=== PATIENT | female | born 1960 | race Caucasian/White ===

== ENCOUNTER → 2017-09-06 | Outpatient (CLI) | payer MEDICARE ==
[~2017-09-06] MED LIST: ACTO15TA22 PO; AMLO10TA2 PO; ATEN100T PO; CITA20TA4 PO; CLAR10CA3 PO; CLON0.2T PO; CYCL10TA PO; GABA800T PO; LEVEMIR SQ; LIPI80TA PO; NOVO7030P2 SQ; NOVOLOGP2 SQ; PIOG30 PO; PRIL20CA9 PO; TRAZ50TA12 PO; [UNRECOGNIZED DRUG - OTHER] TOP; [UNRECOGNIZED DRUG - SUPPLY] SQ
[2017-09-06 16:26] LABS: BICARBONATE 30.1 MEQ/L (21.0-32.0); CALCIUM 9.4 MG/DL (8.5-10.1); CREATININE 2.42 MG/DL (0.50-1.00)
== END ==
LOC: PLAB 14:16
PROVIDERS: ATTEND Family Medicine
DX: I12.9 Hypertensive chronic kidney disease with stage 1 through stage 4 chronic kidney disease, or unspecified chronic kidney disease (principal); N18.4 Chronic kidney disease, stage 4 (severe)
CPT/HCPCS: 36415; 80048

== ENCOUNTER → 2017-09-23 | Outpatient (CLI) | payer MEDICARE ==
[2017-09-23 14:03] LABS: B-TYPE NATRIURETIC PEPTIDE 59 PG/ML (0-100); PARATHYROID HORMONE INTACT 168.7 PG/ML (12.4-76.8)
== END ==
LOC: PLAB 11:48
DX: R09.02 Hypoxemia (principal); I12.9 Hypertensive chronic kidney disease with stage 1 through stage 4 chronic kidney disease, or unspecified chronic kidney disease; N18.4 Chronic kidney disease, stage 4 (severe); E11.22 Type 2 diabetes mellitus with diabetic chronic kidney disease; E11.65 Type 2 diabetes mellitus with hyperglycemia; R06.09 Other forms of dyspnea; R60.0 Localized edema; I87.2 Venous insufficiency (chronic) (peripheral)
CPT/HCPCS: 36415; 83880; 83970

== ENCOUNTER 2017-09-26 15:03 | Observation (INO) | payer MEDICARE ==
[2017-09-26] VITALS (9 sets, daily range): BP systolic 171–230; BP diastolic 74–105; PULSE 72–83; RESP 16–20; TEMP 97.9–98.1; O2SAT 90–97
[2017-09-26 16:31] LABS: AUTOMATED NEUTROPHIL # 7.4 TH/MM3 (1.8-7.7); BASOPHIL # 0.1 TH/MM3 (0-0.2); BASOPHIL % 1.1 % (0.0-2.0); EOSINOPHIL # 0.6 TH/MM3 (0-0.4); EOSINOPHIL % 5.8 % (0.0-4.0); HEMATOCRIT 35.3 % (35.0-46.0); HEMOGLOBIN 11.4 GM/DL (11.6-15.3); LYMPHOCYTE # 1.4 TH/MM3 (1.0-4.8); MEAN CELL VOLUME 93.5 FL (80.0-100.0); MEAN CORPUSCULAR HEMOGLOBIN 30.1 PG (27.0-34.0); MEAN CORPUSCULAR HGB CONC 32.2 % (32.0-36.0); MEAN PLATELET VOLUME 8.5 FL (7.0-11.0); MONO % 11.1 % (0.0-8.0); MONOCYTE # 1.2 TH/MM3 (0-0.9); PLATELET COUNT 282 TH/MM3 (150-450); RED BLOOD COUNT 3.78 MIL/MM3 (4.00-5.30); WHITE BLOOD COUNT 10.7 TH/MM3 (4.0-11.0)
[2017-09-26 16:56] LABS: ALBUMIN 3.1 GM/DL (3.4-5.0); AST (GOT) 10 U/L (15-37); BICARBONATE 27.3 MEQ/L (21.0-32.0); BLOOD UREA NITROGEN 27 MG/DL (7-18); CALCIUM 9.1 MG/DL (8.5-10.1); CHLORIDE 107 MEQ/L (98-107); CREATININE 2.13 MG/DL (0.50-1.00); GLOMERULAR FILTRATION RATE 24 ML/MIN (>89); GLUCOSE,RANDOM 159 MG/DL (74-106); MAGNESIUM 1.9 MG/DL (1.5-2.5); SODIUM (NA) 139 MEQ/L (136-145)
[2017-09-26 16:58] LABS: ALT (GPT) 16 U/L (10-53)
[2017-09-26 16:59] LABS: ALKALINE PHOSPHATASE 59 U/L (45-117); TOTAL BILIRUBIN ADULT 0.1 MG/DL (0.2-1.0); TOTAL PROTEIN 7.1 GM/DL (6.4-8.2)
[2017-09-26 17:24] LABS: BANDS 2 % (0-6); BASOPHILS 2 % (0-2); LYMPHOCYTES 8 % (9-44); METAMYELOCYTES 1 % (0-1); MONOCYTES 11 % (0-8); MYELOCYTES 2 % (0-0); NEUTROPHIL # MANUAL DIFF 7.6 TH/MM3 (1.8-7.7); POLYS (SEG NEUTROPHILS) 66 % (16-70)
[2017-09-26] MEDS ORDERED: CITA20TA4 PO (17:40)
[2017-09-26] MEDS ORDERED: ZOCO20TA PO (17:40)
[2017-09-26] MEDS ORDERED: AMLO5TAB2 PO (17:40)
[2017-09-26] MEDS ORDERED: GABA600T PO (17:40)
[2017-09-26] MEDS ORDERED: HYDR-3516 PO (17:40)
[2017-09-26] MEDS ORDERED: ZANT150T2 PO (17:40)
[2017-09-26] MEDS ORDERED: CLON0.2T PO (17:40)
[2017-09-26] MEDS ORDERED: NOVOLOGMXP SQ (17:41)
[2017-09-26] MEDS ORDERED: CLINDAMYCIN 600 MG/NS PREMIX 50 ML IV ONE (17:45)
[2017-09-26] MEDS ORDERED: FUROSEMIDE 40 MG/4 ML VIAL IV PUSH ONE (17:45)
--- NOTE | 2017-09-26 17:58 | RADRPT ---
EXAM DATE/TIME: 09/26/2017 17:42 [facility] COMPARISON: No previous studies available for comparison. INDICATIONS : Short of breath. MEDICAL HISTORY : Hypertension. Renal insufficiency. SURGICAL HISTORY : None. ENCOUNTER: Initial ACUITY: 1 day PAIN SCORE: 0/10 LOCATION: Bilateral chest FINDINGS: The lungs are clear. The heart is minimally enlarged. The pulmonary vascularity is normal. There is n o evidence for infiltrate or failure. The portion of the bony skeleton visualized is unremarkable. CONCLUSION: Compensated cardiomegaly otherwise negative Jam Wall MD FACR on September 26, 2017 at 17:54 Board Certified Radiologist. This report was verified electronically.
--- NOTE | 2017-09-26 18:37 | PD ---
HPI Chief Complaint: Medical Clearance Time Seen by Provider: 17:09 Travel History International Travel<30 days: No Contact w/Intl Traveler<30days: No Traveled to known affect area: No History of Present Illness HPI 57-year-old female that presents to the ED for evaluation of possible admission for CHF exacerbation. Per patient she was sent here by Dr. Fitzpatrick for evaluation of this. Per patient she felt with Dr. Fitzpatrick for chronic conditions. Per patient she's been having issues with her blood sugars, hypertension and fluid in her legs. Per patient she is short of breath with exertion. No chest pain. No urinary or bowel movement issues. Per patient she has a home health nurse that been helping her with taking her medications and follows the wounds on her legs and per patient the leg wounds on the left leg appear to be worsening. She also complains of more swelling. She apparently has a history of lymphedema as well as CHF. Per patient she was called by Dr. Fitzpatrick to come here to get evaluated as they're concerned that she might have some kidney injury as well from taking multiple diuretics. She has no allergies to medications. No other medical issues at this time. No chest pain. No recent travel. Takes no blood thinners. No fevers chills or sweats. PFSH Past Medical History Arthritis: Yes Asthma: No Autoimmune Disease: No Heart Rhythm Problems: No Cardiovascular Problems: Yes High Cholesterol: Yes Chest Pain: No Congestive Heart Failure: No COPD: No Cerebrovascular Accident: No Diabetes: Yes Patient Takes Glucophage: No Diminished Hearing: No Gastrointestinal Disorders: Yes GERD: No Glaucoma: No Headaches: Yes Hepatitis: No Hiatal Hernia: No Hypertension: Yes Kidney Stones: No Musculoskeletal: Yes Myocardial Infarction: No Renal Failure: No Seizures: No Sleep Apnea: No Thyroid Disease: No Ulcer: No Tetanus Vaccination: > 5 Years Influenza Vaccination: Yes ?: Not Menopausal: Yes : 1 Para: 1 Past Surgical History Abdominal Surgery: No AICD: No Cardiac Surgery: No Section: Yes (x 1) Ear Surgery: No Endocrine Surgery: No Eye Surgery: No Genitourinary Surgery: No Gynecologic Surgery: Yes Oral Surgery: No Pacemaker: No Thoracic Surgery: No Social History Alcohol Use: No Tobacco Use: No (quit 4 years) Substance Use: No Allergies-Medications (Allergen,Severity, Reaction): Coded Allergies: No Known Allergies (Verified Allergy, Unknown, 09/26/17) Reported Meds & Prescriptions Reported Meds & Active Scripts Active Novolog Inj (Insulin Aspart) 1,000 Unit/10 Ml Vial 1-9 Units SQ ACHS Max dose at bedtime:( )units; sugars less than 70,(0)units; sugars 150-199,(1) unit; sugars 200-249,(3) units; sugars 250-299,(5) units; sugars 300-349,(7) units; sugars greater than 349,(9) units Gabapentin 800 Mg Tab 800 Mg PO TID Actos (Pioglitazone HCl) 15 Mg Tab 15 Mg PO DAILY Reported Novolog Mix 70-30 Inj (Insulin Aspart Prota 70%/Aspart 30%) 1,000 Unit/10 Ml Vial 52 Units SQ BID Hydrocodone-Acetaminophen 5-325 mg Tab 1 Tab PO Q8HR PRN Zantac (Ranitidine HCl) 150 Mg Tab 150 Mg PO BID Zocor (Simvastatin) 20 Mg Tab 20 Mg PO DAILY Gabapentin 600 Mg Tab 600 Mg PO TID Citalopram (Citalopram Hydrobromide) 20 Mg Tab 20 Mg PO DAILY Clonidine (Clonidine HCl) 0.2 Mg Tab 0.2 Mg PO BID Amlodipine (Amlodipine Besylate) 5 Mg Tab 5 Mg PO DAILY Review of Systems Except as stated in HPI: all other systems reviewed are Neg Physical Exam Narrative GENERAL: SKIN: Warm and dry. HEAD: Atraumatic. Normocephalic. EYES: Pupils equal and round. No scleral icterus. No injection or drainage. ENT: No nasal bleeding or discharge. Mucous membranes pink and moist. Tongue is midline. No uvula deviation. NECK: Trachea midline. No JVD. CARDIOVASCULAR: Regular rate and rhythm. No murmurs, S3, S4. RESPIRATORY: No accessory muscle use. Clear to auscultation. Breath sounds equal bilaterally. GASTROINTESTINAL: Abdomen soft, non-tender, nondistended. Hepatic and splenic margins not palpable. MUSCULOSKELETAL: Extremities without clubbing, cyanosis, or edema. No obvious deformities. Full range of motion of the upper and lower extremities bilaterally. 2+ pulses bilaterally. Patient does have 2+ pitting edema especially on the left leg. Patient does appear to have some wounds on her like that appear to be infected with erythema. Some calf tenderness noted as well. NEUROLOGICAL: Awake and alert. No obvious cranial nerve deficits. Motor grossly within normal limits. Five out of 5 muscle strength in the arms and legs. Normal speech. PSYCHIATRIC: Appropriate mood and affect; insight and judgment normal. Data Data Last Documented VS Vital Signs Date Time Temp Pulse Resp B/P (MAP) Pulse Ox O2 Delivery O2 Flow Rate FiO2 09/26/17 17:34 20 95 Room Air 09/26/17 17:16 97.9 76 Orders Orders Complete Blood Count With Diff (09/26/17 15:25) Comprehensive Metabolic Panel (09/26/17 15:25) B-Type Natriuretic Peptide (09/26/17 15:25) Magnesium (Mg) (09/26/17 15:25) Electrocardiogram (09/26/17 17:29) Prothrombin Time / Inr (Pt) (09/26/17 17:29) Act Partial Throm Time (Ptt) (09/26/17 17:29) Urinalysis - C+S If Indicated (09/26/17 17:29) Magnesium (Mg) (09/26/17 17:29) Chest, Single Ap (09/26/17 17:29) Iv Access Insert/Monitor (09/26/17 17:29) Ecg Monitoring (09/26/17 17:29) Oximetry (09/26/17 17:29) Us Leg Venous Doppler Bilat (09/26/17 ) Furosemide Inj (Lasix Inj) (09/26/17 17:45) Clindamycin 600 Mg/Ns Premix (Cleocin 60 (09/26/17 17:45) Urine Culture (09/26/17 18:20) Admit Order (Ed Use Only) (09/26/17 19:18) Labs Laboratory Tests Test 09/26/17 15:35 09/26/17 17:40 09/26/17 18:20 White Blood Count 10.7 TH/MM3 Red Blood Count 3.78 MIL/MM3 Hemoglobin 11.4 GM/DL Hematocrit 35.3 % Mean Corpuscular Volume 93.5 FL Mean Corpuscular Hemoglobin 30.1 PG Mean Corpuscular Hemoglobin Concent 32.2 % Red Cell Distribution Width 16.0 % Platelet Count 282 TH/MM3 Mean Platelet Volume 8.5 FL Neutrophils (%) (Auto) 69.0 % Lymphocytes (%) (Auto) 13.0 % Monocytes (%) (Auto) 11.1 % Eosinophils (%) (Auto) 5.8 % Basophils (%) (Auto) 1.1 % Neutrophils # (Auto) 7.4 TH/MM3 Lymphocytes # (Auto) 1.4 TH/MM3 Monocytes # (Auto) 1.2 TH/MM3 Eosinophils # (Auto) 0.6 TH/MM3 Basophils # (Auto) 0.1 TH/MM3 CBC Comment AUTO DIFF Differential Total Cells Counted 100 Neutrophils % (Manual) 66 % Band Neutrophils % 2 % Lymphocytes % 8 % Monocytes % 11 % Eosinophils % 8 % Basophils % 2 % Neutrophils # (Manual) 7.6 TH/MM3 Metamyelocytes 1 % Myelocytes 2 % Differential Comment FINAL DIFF MANUAL Platelet Estimate NORMAL Platelet Morphology Comment NORMAL Blood Urea Nitrogen 27 MG/DL Creatinine 2.13 MG/DL Random Glucose 159 MG/DL Total Protein 7.1 GM/DL Albumin 3.1 GM/DL Calcium Level 9.1 MG/DL Magnesium Level 1.9 MG/DL 1.9 MG/DL Alkaline Phosphatase 59 U/L Aspartate Amino Transf (AST/SGOT) 10 U/L Alanine Aminotransferase (ALT/SGPT) 16 U/L Total Bilirubin 0.1 MG/DL Sodium Level 139 MEQ/L Potassium Level 4.5 MEQ/L Chloride Level 107 MEQ/L Carbon Dioxide Level 27.3 MEQ/L Anion Gap 5 MEQ/L Estimat Glomerular Filtration Rate 24 ML/MIN B-Type Natriuretic Peptide 117 PG/ML Prothrombin Time 10.0 SEC Prothromb Time International Ratio 1.0 RATIO Activated Partial Thromboplast Time 24.8 SEC Urine Color LIGHT-YELLOW Urine Turbidity CLEAR Urine pH 6.0 Urine Specific [place] 1.016 Urine Protein 300 mg/dL Urine Glucose (UA) 70 mg/dL Urine Ketones NEG mg/dL Urine Occult Blood TRACE Urine Nitrite NEG Urine Bilirubin NEG Urine Urobilinogen LESS THAN 2.0 MG/DL Urine Leukocyte Esterase SMALL Urine RBC 6 /hpf Urine WBC 43 /hpf Urine Squamous Epithelial Cells 1 /hpf Urine Bacteria OCC /hpf Urine Mucus FEW /lpf Microscopic Urinalysis Comment CULTURE INDICATED MDM Medical Decision Making Medical Screen Exam Complete: Yes Emergency Medical Condition: Yes Medical Record Reviewed: Yes Interpretation(s) CBC & BMP Diagram 09/26/17 15:35 Total Protein 7.1, Albumin 3.1 L, Calcium Level 9.1, Magnesium Level 1.9, Alkaline Phosphatase 59, Aspartate Amino Transf (AST/SGOT) 10 L, Alanine Aminotransferase (ALT/SGPT) 16, Total Bilirubin 0.1 L Last Impressions Chest X-Ray 09/26/17 1729 Signed Impressions: Service Date/Time: Tuesday, September 26, 2017 17:42 - CONCLUSION: Compensated cardiomegaly otherwise negative Jam Wall MD FACR Lower Extremity Ultrasound 09/26/17 0000 Signed Impressions: Service Date/Time: Tuesday, September 26, 2017 18:12 - CONCLUSION: Normal examination. Rajiv Cardenas MD BNP in the 100s Differential Diagnosis Hypertension versus diabetes versus kidney injury versus CHF exacerbation versus pitting edema Narrative Course 57-year-old female that presents to the ED for evaluation of multiple complaints. Patient was properly examined and was found to have signs and symptoms of unclear etiology but appeared to be for the most part worsening from chronic. I discussed the case with Dr. Fitzpatrick who is aware of the patient and she in force me to the patient has been follow-up with her for the past couple of months and has been having issues keeping her fluid out. She's been on multiple diuretics and is causing some issues with her kidneys which is what she was concerned the most. She is also somewhat of a noncompliant and because of her leg wounds as well as her other comorbidities wanted her to get admitted for further evaluation. Per Dr. Fitzpatrick she does not admit in [facility] and wants her to be admitted to medicine. Labs and imaging were ordered by me. Patient was started on diuretics. Case discussed with my attending Dr Amezcua who agrees with plan. Spoke with Dr Holloway who agrees to obs admission. Diagnosis Primary Impression: CHF (congestive heart failure) Qualified Codes: I50.9 - Heart failure, unspecified Additional Impression: Leg edema Admitting Information Admitting Physician Requests: Observation Robert Campa Sep 26, 2017 18:37
[2017-09-26 18:55] LABS: BACTERIA, URINE OCC /hpf; BILIRUBIN, URINE NEG (NEG); BLOOD, URINE TRACE (NEG); GLUCOSE,URINE 70 mg/dL (NEG); KETONE, URINE NEG (NEG); MUCUS URINE FEW /lpf (OCC); NITRITE,URINE NEG (NEG); SQUAMOUS EPITHELIAL CELL URINE 1 /hpf (0-5); URINE COLOR LIGHT-YELLOW (YELLW/STRAW); URINE LEUKOCYTE ESTERASE SMALL (NEG)
--- NOTE | 2017-09-26 18:56 | RADRPT ---
EXAM DATE/TIME: 09/26/2017 18:12 [facility] COMPARISON: No previous studies available for comparison. INDICATIONS : Bilateral leg swelling. MEDICAL HISTORY : Hypercholesterolemia. Hypertension. Neck pain. Hyperlipidemia. Arthritis. Diabetes. Anemia. SURGICAL HISTORY : section. ENCOUNTER: Initial ACUITY: 4 - 6 days PAIN SCORE: 3/10 LOCATION: Bilateral legs. TECHNIQUE: Venous ultrasound of the left and right leg was performed from the inguinal ligament to the proximal calf. Real-time, color Doppler and spectral tracing, compression and augmentation techniques were us ed. FINDINGS: RIGHT LEG: There is normal compressibility of the deep venous system from the inguinal region to the proximal ca lf. No echogenic clot is seen in the lumen of the common femoral, femoral, popliteal, and posterior tibial veins. There is a normal response of the venous system to proximal and distal augmentation an d respiration. LEFT LEG: There is normal compressibility of the deep venous system from the inguinal region to the proximal ca lf. No echogenic clot is seen in the lumen of the common femoral, femoral, popliteal, and posterior tibial veins. There is a normal response of the venous system to proximal and distal augmentation an d respiration. CONCLUSION: Normal examination. Rajiv Cardenas MD on September 26, 2017 at 18:53 Board Certified Radiologist. This report was verified electronically.
[2017-09-26] MEDS ORDERED: DEXTROSE 50% IN WATER 50 ML VIAL(D50) IV PUSH PRN (19:45)
[2017-09-26] MEDS ORDERED: ONDANSETRON HCL 4 MG/2 ML VIAL IVP PRN (19:45)
[2017-09-26] MEDS ORDERED: GLUCAGON 1 MG/ML VIAL OTHER PRN (19:45)
[2017-09-26] MEDS ORDERED: SODIUM CHLORIDE 0.9% FLUSH 10 ML FLUSH IV FLUSH PRN (19:45)
[2017-09-26] MEDS ORDERED: ACETAMINOPHEN 325 MG TAB PO PRN (19:45)
[2017-09-26] MEDS ORDERED: NALOXONE HCL 0.4 MG/ML AMP IV PUSH PRN (19:45)
--- NOTE | 2017-09-26 20:55 | HHI.HP ---
[facility] Service [place] [facility] Primary Care Physician Stacy Fitzpatrick MD Admission Diagnosis CHF exacerbation Diagnoses: Travel History International Travel<30 Days: No Contact w/Intl Traveler <30 Da: No Traveled to Known Affected Are: No History of Present Illness 57-year-old female with a past medical history significant for hypertension, COPD, insulin-dependent diabetes mellitus, hyperlipidemia and chronic kidney disease presents to the emergency department at the suggestion of her physician for evaluation of multiple chronic conditions. The patient reports that her the past several days she has had elevated blood pressure. She also complains of increasing shortness of breath on exertion. She has "leg wounds" that she would also like evaluated with chronic lymphedema. The patient follows with Dr. Fitzpatrick who requests she be admitted for further diuresis with monitoring of her worsening renal function. Vital signs on admission: Temperature 98.0, pulse 72, respirations 16, BP 2:30/105, pulse ox 97% on room air. Review of Systems Denies fever or chills Denies blurry vision, otorrhea, rhinorrhea Denies sore throat and cough No chest pain, palpitations Positive shortness of breath, No wheezing No abdominal pain Denies constipation/diarrhea/nausea/vomiting Denies muscle pain Denies focal weakness No rashes Past Family Social History Past Medical History Hypertension COPD Insulin-dependent diabetes mellitus Hyperlipidemia Chronic kidney disease Past Surgical History Reported Medications Reported Meds & Active Scripts Active Novolog Inj (Insulin Aspart) 1,000 Unit/10 Ml Vial 1-9 Units SQ ACHS Max dose at bedtime:( )units; sugars less than 70,(0)units; sugars 150-199,(1) unit; sugars 200-249,(3) units; sugars 250-299,(5) units; sugars 300-349,(7) units; sugars greater than 349,(9) units Gabapentin 800 Mg Tab 800 Mg PO TID Actos (Pioglitazone HCl) 15 Mg Tab 15 Mg PO DAILY Reported Novolog Mix 70-30 Inj (Insulin Aspart Prota 70%/Aspart 30%) 1,000 Unit/10 Ml Vial 52 Units SQ BID Hydrocodone-Acetaminophen 5-325 mg Tab 1 Tab PO Q8HR PRN Zantac (Ranitidine HCl) 150 Mg Tab 150 Mg PO BID Zocor (Simvastatin) 20 Mg Tab 20 Mg PO DAILY Gabapentin 600 Mg Tab 600 Mg PO TID Citalopram (Citalopram Hydrobromide) 20 Mg Tab 20 Mg PO DAILY Clonidine (Clonidine HCl) 0.2 Mg Tab 0.2 Mg PO BID Amlodipine (Amlodipine Besylate) 5 Mg Tab 5 Mg PO DAILY Allergies: Coded Allergies: No Known Allergies (Verified Allergy, Unknown, 09/26/17) Family History Father with diabetes mellitus Social History Quit tobacco 4 years ago. Denies alcohol, illicit drugs. Physical Exam Vital Signs Vital Signs Date Time Temp Pulse Resp B/P (MAP) Pulse Ox O2 Delivery O2 Flow Rate FiO2 09/26/17 19:40 96 Nasal Cannula 2.00 09/26/17 19:39 72 20 188/84 (118) 90 Room Air 09/26/17 17:34 20 95 Room Air 09/26/17 17:16 97.9 76 20 210/87 (128) 94 Room Air 09/26/17 17:10 76 20 09/26/17 15:05 98.0 72 16 230/105 (146) 97 Physical Exam GENERAL: Obese, female sitting up in bed SKIN: Multiple excoriations on the posterior aspect of bilateral lower extremities with surrounding erythema HEAD: Atraumatic. Normocephalic. No temporal or scalp tenderness. EYES: Pupils equal round and reactive. Extraocular motions intact. No scleral icterus. No injection or drainage. ENT: Nose without bleeding, purulent drainage or septal hematoma. Throat without erythema, tonsillar hypertrophy or exudate. Uvula midline. Airway patent. NECK: Trachea midline. No JVD or lymphadenopathy. Supple, nontender, no meningeal signs. CARDIOVASCULAR: Regular rate and rhythm without murmurs, gallops, or rubs. RESPIRATORY: Clear to auscultation. Breath sounds equal bilaterally. No wheezes , rales, or rhonchi. GASTROINTESTINAL: Abdomen soft, non-tender, nondistended. No hepato-splenomegaly , or palpable masses. No guarding. MUSCULOSKELETAL: Bilateral lower extremity edema, left greater than right. No calf tenderness. NEUROLOGICAL: Awake and alert. Cranial nerves II through XII intact. Motor and sensory grossly within normal limits. Normal speech. Laboratory Laboratory Tests Test 09/26/17 15:35 09/26/17 17:40 09/26/17 18:20 White Blood Count 10.7 Red Blood Count 3.78 Hemoglobin 11.4 Hematocrit 35.3 Mean Corpuscular Volume 93.5 Mean Corpuscular Hemoglobin 30.1 Mean Corpuscular Hemoglobin Concent 32.2 Red Cell Distribution Width 16.0 Platelet Count 282 Mean Platelet Volume 8.5 Neutrophils (%) (Auto) 69.0 Lymphocytes (%) (Auto) 13.0 Monocytes (%) (Auto) 11.1 Eosinophils (%) (Auto) 5.8 Basophils (%) (Auto) 1.1 Neutrophils # (Auto) 7.4 Lymphocytes # (Auto) 1.4 Monocytes # (Auto) 1.2 Eosinophils # (Auto) 0.6 Basophils # (Auto) 0.1 CBC Comment AUTO DIFF Differential Total Cells Counted 100 Neutrophils % (Manual) 66 Band Neutrophils % 2 Lymphocytes % 8 Monocytes % 11 Eosinophils % 8 Basophils % 2 Neutrophils # (Manual) 7.6 Metamyelocytes 1 Myelocytes 2 Differential Comment FINAL DIFF MANUAL Platelet Estimate NORMAL Platelet Morphology Comment NORMAL Blood Urea Nitrogen 27 Creatinine 2.13 Random Glucose 159 Total Protein 7.1 Albumin 3.1 Calcium Level 9.1 Magnesium Level 1.9 1.9 Alkaline Phosphatase 59 Aspartate Amino Transf (AST/SGOT) 10 Alanine Aminotransferase (ALT/SGPT) 16 Total Bilirubin 0.1 Sodium Level 139 Potassium Level 4.5 Chloride Level 107 Carbon Dioxide Level 27.3 Anion Gap 5 Estimat Glomerular Filtration Rate 24 B-Type Natriuretic Peptide 117 Prothrombin Time 10.0 Prothromb Time International Ratio 1.0 Activated Partial Thromboplast Time 24.8 Urine Color LIGHT-YELLOW Urine Turbidity CLEAR Urine pH 6.0 Urine Specific [place] 1.016 Urine Protein 300 Urine Glucose (UA) 70 Urine Ketones NEG Urine Occult Blood TRACE Urine Nitrite NEG Urine Bilirubin NEG Urine Urobilinogen LESS THAN 2.0 Urine Leukocyte Esterase SMALL Urine RBC 6 Urine WBC 43 Urine Squamous Epithelial Cells 1 Urine Bacteria OCC Urine Mucus FEW Microscopic Urinalysis Comment CULTURE INDICATED Date/Time Source Procedure Growth Status 09/26/17 18:20 Urine Clean Catch Urine Culture Pending Received Result Diagram: 09/26/17 1535 09/26/17 1535 Caprini VTE Risk Assessment Caprini VTE Risk Assessment: No/Low Risk (score <= 1) Caprini Risk Assessment Model Point Value = 1 Point Value = 2 Point Value = 3 Point Value = 5 Age 41-60 Minor surgery BMI > 25 kg/m2 Swollen legs Varicose veins or History of unexplained or recurrent spontaneous Oral contraceptives or hormone replacement Sepsis (< 1 month) Serious lung disease, including pneumonia (< 1 month) Abnormal pulmonary function Acute myocardial infarction Congestive heart failure (< 1 month) History of inflammatory bowel disease Medical patient at bed rest Age 61-74 Arthroscopic surgery Major open surgery (> 45 min) Laparoscopic surgery (> 45 min) Malignancy Confined to bed (> 72 hours) Immobilizing plaster cast Central venous access Age >= 75 History of VTE Family history of VTE Factor V Leiden Prothrombin [id number] Lupus anticoagulant Anticardiolipin antibodies Elevated serum homocysteine Heparin-induced thrombocytopenia Other congenital or acquired thrombophilia Stroke (< 1 month) Elective arthroplasty Hip, pelvis, or leg fracture Acute spinal cord injury (< 1 month) Prophylaxis Regimen Total Risk Factor Score Risk Level Prophylaxis Regimen 0-1 Low Early ambulation 2 Moderate Order ONE of the following: *Sequential Compression Device (SCD) *Heparin 5000 units SQ BID 3-4 Higher Order ONE of the following medications: *Heparin 5000 units SQ TID *Enoxaparin/Lovenox 40 mg SQ daily (WT < 150 kg, CrCl > 30 mL/min) *Enoxaparin/Lovenox 30 mg SQ daily (WT < 150 kg, CrCl > 10-29 mL/min) *Enoxaparin/Lovenox 30 mg SQ BID (WT < 150 kg, CrCl > 30 mL/min) AND/OR *Sequential Compression Device (SCD) 5 or more Highest Order ONE of the following medications: *Heparin 5000 units SQ TID (Preferred with Epidurals) *Enoxaparin/Lovenox 40 mg SQ daily (WT < 150 kg, CrCl > 30 mL/min) *Enoxaparin/Lovenox 30 mg SQ daily (WT < 150 kg, CrCl > 10-29 mL/min) *Enoxaparin/Lovenox 30 mg SQ BID (WT < 150 kg, CrCl > 30 mL/min) AND *Sequential Compression Device (SCD) Assessment and Plan Assessment and Plan Assessment/plan: 1. Lower extremity edema IV Lasix Monitor renal function Strict I's and O's 2. Shortness of breath/COPD DuoNeb's May be secondary to volume overload 3. Chronic kidney disease Creatinine 2.13, was 2.42 on 09/06/17 Monitor renal function 4. Hypertension/hyperlipidemia Patient's medication compliance is questionable Continue home medications Adjust when necessary 5. Lower extremity wounds Counseled patient to abstain from scratching Clindamycin FEN Heart healthy diet Electrolytes: Monitor and replete when necessary Heparin Nica Holloway MD Sep 26, 2017 20:55
[2017-09-26] MEDS: HEPARIN SODIUM - SQ 10,000 UNITS/ML VIAL SQ SCH (20:57)
[2017-09-26] MEDS: cloNIDine HCL 0.2 MG TAB PO SCH (20:57)
[2017-09-26] MEDS: SODIUM CHLORIDE 0.9% FLUSH 10 ML FLUSH IV FLUSH SCH (20:57)
[2017-09-26] MEDS: FAMOTIDINE 20 MG TAB PO SCH (20:57)
[2017-09-26] MEDS: INSULIN ASPAR PROT 70/30 1,000 UNITS/10 ML VIAL SQ SCH (20:58)
[2017-09-26] MEDS: INSULIN ASPART SUPPLEMENTAL SCALE SQ SCH (20:58)
[2017-09-26] MEDS ORDERED: NON-FORMULARY DRUG (Ranitidine (Zantac) 150 MG) PO SCH (21:00)
[2017-09-26] MEDS ORDERED: RESP: ALBUTEROL 2.5 MG/IPRATROPIUM 0.5 MG NEB (PRN) NEB (21:00)
[2017-09-26] MEDS ORDERED: cloNIDine HCL 0.1 MG TAB PO ONE (21:30)
[2017-09-27] VITALS (11 sets, daily range): BP systolic 166–210; BP diastolic 70–88; PULSE 64–78; RESP 18–20; TEMP 97.9–98.6; O2SAT 92–96
[2017-09-27] MEDS: CLINDAMYCIN 600 MG/NS PREMIX 50 ML IV SCH ×4 (00:09→18:01)
[2017-09-27] MEDS ORDERED: cloNIDine HCL 0.1 MG TAB PO ONE (01:15)
[2017-09-27] MEDS: HEPARIN SODIUM - SQ 10,000 UNITS/ML VIAL SQ SCH ×3 (05:56→20:35)
[2017-09-27 07:26] LABS: AUTOMATED NEUTROPHIL # 6.5 TH/MM3 (1.8-7.7); BASOPHIL # 0.1 TH/MM3 (0-0.2); BASOPHIL % 1.2 % (0.0-2.0); EOSINOPHIL # 0.5 TH/MM3 (0-0.4); EOSINOPHIL % 5.4 % (0.0-4.0); HEMATOCRIT 33.4 % (35.0-46.0); LYMPH % 12.5 % (9.0-44.0); LYMPHOCYTE # 1.2 TH/MM3 (1.0-4.8); MEAN CELL VOLUME 94.3 FL (80.0-100.0); MEAN CORPUSCULAR HEMOGLOBIN 31.1 PG (27.0-34.0); MEAN CORPUSCULAR HGB CONC 32.9 % (32.0-36.0); MEAN PLATELET VOLUME 8.7 FL (7.0-11.0); MONO % 11.1 % (0.0-8.0); NEUT % 69.8 % (16.0-70.0); PLATELET COUNT 275 TH/MM3 (150-450); RED BLOOD COUNT 3.55 MIL/MM3 (4.00-5.30); RED CELL DISTRIBUTION WIDTH 15.9 % (11.6-17.2); WHITE BLOOD COUNT 9.4 TH/MM3 (4.0-11.0)
[2017-09-27 07:41] LABS: BICARBONATE 29.9 MEQ/L (21.0-32.0); CALCIUM 8.7 MG/DL (8.5-10.1)
[2017-09-27] MEDS: INSULIN ASPART SUPPLEMENTAL SCALE SQ SCH ×4 (08:00→22:29)
[2017-09-27 08:12] LABS: BANDS 4 % (0-6); LYMPHOCYTES 8 % (9-44); METAMYELOCYTES 2 % (0-1); MONOCYTES 1 % (0-8); MYELOCYTES 2 % (0-0); POLYS (SEG NEUTROPHILS) 77 % (16-70)
[2017-09-27 08:27] LABS: CREATININE 2.13 MG/DL (0.50-1.00)
[2017-09-27] MEDS ORDERED: amLODIPine BESYLATE 5 MG TAB PO SCH (09:00)
[2017-09-27] MEDS ORDERED: NON-FORMULARY DRUG (Simvastatin (Zocor) 20 MG) PO SCH (09:00)
[2017-09-27] MEDS ORDERED: CARV25TA PO (10:17)
[2017-09-27] MEDS: SODIUM CHLORIDE 0.9% FLUSH 10 ML FLUSH IV FLUSH SCH ×2 (10:33→20:36)
[2017-09-27] MEDS: FUROSEMIDE 20 MG/2 ML VIAL IV PUSH SCH ×2 (10:33→18:01)
[2017-09-27] MEDS: PRAVASTATIN SOD 40 MG TAB PO SCH (10:34)
[2017-09-27] MEDS: INSULIN ASPAR PROT 70/30 1,000 UNITS/10 ML VIAL SQ SCH ×2 (10:34→22:38)
[2017-09-27] MEDS: CITALOPRAM HYDROBROMIDE 20 MG TAB PO SCH (10:35)
[2017-09-27] MEDS: cloNIDine HCL 0.2 MG TAB PO SCH ×2 (10:35→22:26)
[2017-09-27] MEDS: FAMOTIDINE 20 MG TAB PO SCH ×2 (10:35→20:34)
[2017-09-27] MEDS: GABAPENTIN 300 MG CAP PO SCH ×3 (10:35→17:59)
[2017-09-27] MEDS: ACETAMINOPHEN/HYDROcodone 325 MG/5 MG TAB PO PRN ×2 (11:18→20:34)
[2017-09-27] MEDS: hydrALAZINE HCL 25 MG TAB PO SCH ×2 (11:19→20:33)
--- NOTE | 2017-09-27 13:02 | HHI.PR ---
Subjective Remarks F/u HARRINGTON. Improving SOB on NC and cellulitis of the left lower extremity. Discussed with RN Objective Vitals Vital Signs Date Time Temp Pulse Resp B/P (MAP) Pulse Ox O2 Delivery O2 Flow Rate FiO2 09/27/17 11:21 98.3 75 18 210/86 (127) 95 09/27/17 07:52 97.9 77 18 199/88 (125) 96 09/27/17 05:54 176/82 (113) 09/27/17 04:05 64 09/27/17 00:00 74 09/26/17 23:38 98.1 76 20 200/81 (120) 95 209/82 (124) 09/26/17 23:17 97 Nasal Cannula 2.00 09/26/17 21:50 09/26/17 21:43 72 18 171/74 (106) 97 Nasal Cannula 2.00 09/26/17 20:56 83 18 195/101 (132) 96 Nasal Cannula 2.00 09/26/17 19:40 96 Nasal Cannula 2.00 09/26/17 19:39 72 20 188/84 (118) 90 Room Air 09/26/17 17:34 20 95 Room Air 09/26/17 17:16 97.9 76 20 210/87 (128) 94 Room Air 09/26/17 17:10 76 20 09/26/17 15:05 98.0 72 16 230/105 (146) 97 I/O 09/26/17 09/26/17 09/26/17 09/27/17 09/27/17 09/27/17 07:00 15:00 23:00 07:00 15:00 23:00 Intake Total 170 ml 240 ml Output Total 700 ml 1000 ml Balance -530 ml 240 ml -1000 ml Intake Oral 120 ml 240 ml IV Total 50 ml Output Urine Total 700 ml 1000 ml # Voids 4 1 # Bowel Movements 0 Result Diagram: 09/27/17 0540 09/27/17 0540 Imaging Last Impressions Chest X-Ray 09/26/17 1729 Signed Impressions: Service Date/Time: Tuesday, September 26, 2017 17:42 - CONCLUSION: Compensated cardiomegaly otherwise negative Jam Wall MD FACR Lower Extremity Ultrasound 09/26/17 0000 Signed Impressions: Service Date/Time: Tuesday, September 26, 2017 18:12 - CONCLUSION: Normal examination. Rajiv Cardenas MD Objective Remarks GENERAL: Obese, female sitting up in bed SKIN: Multiple excoriations on the posterior aspect of bilateral lower extremities with surrounding erythema which is improving CARDIOVASCULAR: Regular rate and rhythm without murmurs, gallops, or rubs. RESPIRATORY: Clear to auscultation. Breath sounds equal bilaterally. No wheezes , rales, or rhonchi. GASTROINTESTINAL: Abdomen soft, non-tender, nondistended. No guarding. MUSCULOSKELETAL: Bilateral lower extremity edema, left greater than right. No calf tenderness. NEUROLOGICAL: Awake and alert. Cranial nerves II through XII intact. Motor and sensory grossly within normal limits. Normal speech. Procedures none A/P Problem List: (1) CHF (congestive heart failure) ICD Code: I50.9 - Heart failure, unspecified Status: Acute (2) Leg edema ICD Code: R60.0 - Localized edema Status: Acute Assessment and Plan 1. Lower extremity edema/fluid overload possible new onset heart failure. Improving Continue IV Lasix follow-up echocardiogram Monitor renal function Strict I's and O's 2. Shortness of breath/COPD on nasal cannula. States her PCP has arranged home oxygen DuoNeb's May be secondary to volume overload 3. Chronic kidney disease stage IV Creatinine 2.13, was 2.42 on 09/06/17 Monitor renal function. Consult nephrology avoid nephrotoxins 4. Hypertension/hyperlipidemia Patient's medication compliance is questionable Continue home medications. We'll add hydralazine for better BP control Adjust when necessary 5. Lower extremity wounds with cellulitis. Improving Counseled patient to abstain from scratching Clindamycin FEN Heart healthy diet Electrolytes: Monitor and replete when necessary Heparin Physical therapy evaluation Discharge Planning Possible discharge in 1-2 days Problem Qualifiers (1) CHF (congestive heart failure): Qualified Codes: I50.9 - Heart failure, unspecified Oseas Arteaga MD Sep 27, 2017 13:02
--- NOTE | 2017-09-27 14:49 | PD.CONS ---
HPI Service Nephrology Consult Requested By Lei JACOBS Reason for Consult Worsening RF Primary Care Physician Stacy Fitzpatrick MD History of Present Illness Patient is a 57-year-old female with a past medical history significant for hypertension, COPD, insulin-dependent diabetes mellitus, hyperlipidemia and chronic kidney disease. Who presents to the emergency department at the suggestion of her physician for evaluated elevated blood pressure with SBP in the 200's and lower extremity unilateral swelling. She also complains of increasing shortness of breath on exertion and has "leg wounds" . The patient follows with Dr. Fitzpatrick who requests she be admitted for further diuresis with monitoring of her worsening renal function. History obtained from patient. Reports that around 6 months ago she was total that her GFR was 29 and that probably over the last 5 years her physician has been telling her that her kidney function has been declining. She has never been followed by sport internship but has a appt scheduled with Dr. Mendes on the . She has had diabetes for over 5 years and has been insulin dependent for the last 2 1/2 years. She has not been well controlled with blood sugars in the 200's. She has had HTN since her early 20's. As of lately her blood pressure medication has been changed around and her blood pressure has not been as well controlled. (Zulma Iverson) Review of Systems Respiratory: COMPLAINS OF: Shortness of breath Cardiovascular: COMPLAINS OF: Lower Extremity Edema Gastrointestinal: DENIES: Nausea, Vomiting Integumentary: COMPLAINS OF: Rash Hematologic/lymphatic: COMPLAINS OF: Lymphadenopathy Psychiatric: COMPLAINS OF: Depression (Zulma Iverson) Past Family Social History Allergies: Coded Allergies: No Known Allergies (Verified Allergy, Unknown, 09/26/17) Past Medical History Hypertension COPD Insulin-dependent diabetes mellitus Hyperlipidemia Chronic kidney disease Past Surgical History Active Ordered Medications Current Medications Medications (Trade) Dose Ordered Sig/Marisol Route Start Time Stop Time Status Last Admin (NS Flush) 2 ml UNSCH PRN IV FLUSH 09/26/17 19:45 (NS Flush) 2 ml BID IV FLUSH 09/26/17 21:00 09/27/17 10:33 (Tylenol) 650 mg Q4H PRN PO 09/26/17 19:45 (Zofran Inj) 4 mg Q6H PRN IVP 09/26/17 19:45 (Heparin Inj) 5,000 units Q8H SQ 09/26/17 20:00 09/27/17 14:10 (Narcan Inj) 0.4 mg UNSCH PRN IV PUSH 09/26/17 19:45 (D50w (Vial) Inj) 50 ml UNSCH PRN IV PUSH 09/26/17 19:45 (Glucagon Inj) 1 mg UNSCH PRN OTHER 09/26/17 19:45 (NovoLOG SUPPLEMENTAL SCALE) 1 ACHS SLIDING SCALE SQ 09/26/17 21:00 09/27/17 14:11 (Norvasc) 5 mg DAILY PO 09/27/17 09:00 09/27/17 10:34 (CeleXA) 20 mg DAILY PO 09/27/17 09:00 09/27/17 10:35 (Catapres) 0.2 mg BID PO 09/26/17 21:00 09/27/17 10:35 (Neurontin) 600 mg TID PO 09/27/17 09:00 09/27/17 14:09 (NovoLOG MIX 70/ 30 INJ) 52 units BID SQ 09/26/17 21:00 09/27/17 10:34 (Pepcid) 10 mg BID PO 09/26/17 21:00 09/27/17 10:35 (Pravachol) 40 mg DAILY PO 09/27/17 09:00 09/27/17 10:34 (Lasix Inj) 20 mg BID@09,18 IV PUSH 09/27/17 09:00 09/27/17 10:33 (Duoneb Neb) 1 ampule Q4HR NEB PRN NEB 09/26/17 21:00 Clindamycin/ Sodium Chloride 50 ml @ 100 mls/hr Q6HR IV 09/27/17 00:00 09/27/17 12:47 (Apresoline) 25 mg Q12HR PO 09/27/17 10:30 09/27/17 11:19 (Questa 5-325 Mg) 1 tab Q8HR PRN PO 09/27/17 10:30 09/27/17 11:18 Family History Mother and siblings alive with HTN Father with hx of diabetes Social History quit smoking 4 years ago No ETOH use (Zulma Iverson) Physical Exam Vital Signs Vital Signs Date Time Temp Pulse Resp B/P (MAP) Pulse Ox O2 Delivery O2 Flow Rate FiO2 09/27/17 11:21 98.3 75 18 210/86 (127) 95 09/27/17 07:52 97.9 77 18 199/88 (125) 96 09/27/17 05:54 176/82 (113) 09/27/17 04:05 64 09/27/17 00:00 74 09/26/17 23:38 98.1 76 20 200/81 (120) 95 209/82 (124) 09/26/17 23:17 97 Nasal Cannula 2.00 09/26/17 21:50 09/26/17 21:43 72 18 171/74 (106) 97 Nasal Cannula 2.00 09/26/17 20:56 83 18 195/101 (132) 96 Nasal Cannula 2.00 09/26/17 19:40 96 Nasal Cannula 2.00 09/26/17 19:39 72 20 188/84 (118) 90 Room Air 09/26/17 17:34 20 95 Room Air 09/26/17 17:16 97.9 76 20 210/87 (128) 94 Room Air 09/26/17 17:10 76 20 09/26/17 15:05 98.0 72 16 230/105 (146) 97 Physical Exam GENERAL: Alert and oriented. Obese SKIN: Multiple excoriations on the posterior aspect of bilateral lower extremities with surrounding erythema HEAD: Atraumatic. Normocephalic. No temporal or scalp tenderness. EYES: Pupils equal round and reactive. Extraocular motions intact. No scleral icterus. No injection or drainage. ENT: Nose without bleeding, purulent drainage or septal hematoma. NECK: Trachea midline. No JVD or lymphadenopathy. Supple, nontender, no meningeal signs. CARDIOVASCULAR: Regular rate and rhythm without murmurs, gallops, or rubs. RESPIRATORY: Breath sounds diminished equal bilaterally. No wheezes, rales, or rhonchi. GASTROINTESTINAL: Abdomen large, soft, non-tender. No hepato-splenomegaly, or palpable masses. No guarding. MUSCULOSKELETAL: Bilateral lower extremity edema, left greater than right. No calf tenderness. NEUROLOGICAL: Awake and alert. Normal speech. Laboratory Laboratory Tests Test 09/26/17 15:35 09/26/17 17:40 1/22/18 18:20 09/27/17 05:40 White Blood Count 10.7 9.4 Red Blood Count 3.78 3.55 Hemoglobin 11.4 11.0 Hematocrit 35.3 33.4 Mean Corpuscular Volume 93.5 94.3 Mean Corpuscular Hemoglobin 30.1 31.1 Mean Corpuscular Hemoglobin Concent 32.2 32.9 Red Cell Distribution Width 16.0 15.9 Platelet Count 282 275 Mean Platelet Volume 8.5 8.7 Neutrophils (%) (Auto) 69.0 69.8 Lymphocytes (%) (Auto) 13.0 12.5 Monocytes (%) (Auto) 11.1 11.1 Eosinophils (%) (Auto) 5.8 5.4 Basophils (%) (Auto) 1.1 1.2 Neutrophils # (Auto) 7.4 6.5 Lymphocytes # (Auto) 1.4 1.2 Monocytes # (Auto) 1.2 1.0 Eosinophils # (Auto) 0.6 0.5 Basophils # (Auto) 0.1 0.1 CBC Comment AUTO DIFF AUTO DIFF Differential Total Cells Counted 100 100 Neutrophils % (Manual) 66 77 Band Neutrophils % 2 4 Lymphocytes % 8 8 Monocytes % 11 1 Eosinophils % 8 6 Basophils % 2 Neutrophils # (Manual) 7.6 8.0 Metamyelocytes 1 2 Myelocytes 2 2 Differential Comment FINAL DIFF MANUAL FINAL DIFF MANUAL Platelet Estimate NORMAL NORMAL Platelet Morphology Comment NORMAL NORMAL Blood Urea Nitrogen 27 28 Creatinine 2.13 2.13 Random Glucose 159 100 Total Protein 7.1 Albumin 3.1 Calcium Level 9.1 8.7 Magnesium Level 1.9 1.9 Alkaline Phosphatase 59 Aspartate Amino Transf (AST/SGOT) 10 Alanine Aminotransferase (ALT/SGPT) 16 Total Bilirubin 0.1 Sodium Level 139 142 Potassium Level 4.5 4.2 Chloride Level 107 106 Carbon Dioxide Level 27.3 29.9 Anion Gap 5 6 Estimat Glomerular Filtration Rate 24 24 B-Type Natriuretic Peptide 117 Prothrombin Time 10.0 Prothromb Time International Ratio 1.0 Activated Partial Thromboplast Time 24.8 Urine Color LIGHT-YELLOW Urine Turbidity CLEAR Urine pH 6.0 Urine Specific [place] 1.016 Urine Protein 300 Urine Glucose (UA) 70 Urine Ketones NEG Urine Occult Blood TRACE Urine Nitrite NEG Urine Bilirubin NEG Urine Urobilinogen LESS THAN 2.0 Urine Leukocyte Esterase SMALL Urine RBC 6 Urine WBC 43 Urine Squamous Epithelial Cells 1 Urine Bacteria OCC Urine Mucus FEW Microscopic Urinalysis Comment CULTURE INDICATED Date/Time Source Procedure Growth Status 09/26/17 18:20 Urine Clean Catch Urine Culture - Preliminary RESULTS PENDING Resulted (Zulma Iverson) Result Diagram: 09/27/17 0540 09/27/17 0540 Imaging Last Impressions Chest X-Ray 09/26/17 1729 Signed Impressions: Service Date/Time: Tuesday, September 26, 2017 17:42 - CONCLUSION: Compensated cardiomegaly otherwise negative Jam Wall MD FACR Lower Extremity Ultrasound 09/26/17 0000 Signed Impressions: Service Date/Time: Tuesday, September 26, 2017 18:12 - CONCLUSION: Normal examination. Rajiv Cardenas MD (Zulma Iverson) Assessment and Plan Problem List: (1) KYAW (acute kidney injury) ICD Codes: N17.9 - Acute kidney failure, unspecified Plan: Possible KYAW on CKD. Per records there is a creatinine on 09/06/17 at 2.42 and GFR 20 so this could be her baseline numbers. CKD with GFR over 6 months ago at 29 most likely from uncontrolled HTN and diabetes. Patient reports that over the last 5 years she has been told she has been having declining kidney function 3 + protein in urine noted. Eosinophil noted in blood, edema, and rash noted. Will order urine eosinophils Good urine output Potassium WNL Lower extremity edema left greater than right. Negative for DVT per US. Continue lasix and will monitor renal funtion Renal US ordered Renal panel, mg, phos in AM (2) Essential hypertension ICD Codes: I10 - Essential (primary) hypertension Status: Acute Plan: Blood pressure elevated at 210/80 at last documented check Continue hydralazine, clonidine, and amlodipine. Amlodpine increased. Will monitor and make adjustments as needed (3) Diabetes mellitus with renal manifestation ICD Codes: E11.29 - Type 2 diabetes mellitus with other diabetic kidney complication Status: Acute Plan: Diabetic neuropathy: on gabapentin BS AC and HS Insulin dependent Maintain BS between 140mg/dl to 180 mg/dl (4) Obesity ICD Codes: E66.9 - Obesity, unspecified Status: Acute (5) Hyperlipidemia ICD Codes: E78.5 - Hyperlipidemia, unspecified Status: Acute Plan: continue statin (6) Leg edema ICD Codes: R60.0 - Localized edema Status: Acute (7) Wound of lower extremity ICD Codes: S81.809A - Unspecified open wound, unspecified lower leg, initial encounter Plan: Continue clindamycin (Zulma Iverson) Problem List: (1) KYAW (acute kidney injury) ICD Codes: N17.9 - Acute kidney failure, unspecified Plan: Possible KYAW on CKD. Per records there is a creatinine on 09/06/17 at 2.42 and GFR 20 so this could be her baseline numbers. CKD with GFR over 6 months ago at 29 most likely from uncontrolled HTN and diabetes. Patient reports that over the last 5 years she has been told she has been having declining kidney function 3 + protein in urine noted. Eosinophil noted in blood, edema, and rash noted. Will order urine eosinophils Good urine output Potassium WNL Lower extremity edema left greater than right. Negative for DVT per US. Continue lasix and will monitor renal function Renal US ordered Renal panel, mg, phos in AM. Has proteinuria, possibly has Diabetic renal disease. Check ANCA,a nd complement. If Creatinine remain stable, can be discharge with out patient follow up. (2) Essential hypertension ICD Codes: I10 - Essential (primary) hypertension Status: Acute Plan: Blood pressure elevated at 210/80 at last documented check Continue hydralazine, clonidine, and amlodipine. Amlodipine increased. Will monitor and make adjustments as needed. (3) Diabetes mellitus with renal manifestation ICD Codes: E11.29 - Type 2 diabetes mellitus with other diabetic kidney complication Status: Acute Plan: Diabetic neuropathy: on gabapentin BS AC and HS Insulin dependent Maintain BS between 140mg/dl to 180 mg/dl (4) Obesity ICD Codes: E66.9 - Obesity, unspecified Status: Acute (5) Hyperlipidemia ICD Codes: E78.5 - Hyperlipidemia, unspecified Status: Acute Plan: continue statin (6) Leg edema ICD Codes: R60.0 - Localized edema Status: Acute (7) Wound of lower extremity ICD Codes: S81.809A - Unspecified open wound, unspecified lower leg, initial encounter Plan: Continue clindamycin (Gerri Mendes MD) Zulma Iverson Sep 27, 2017 14:48 Gerri Mendes MD Sep 27, 2017 21:50
--- NOTE | 2017-09-27 17:39 | EKG ---
Date Performed: 09/26/2017 Time Performed: 17:41:45 PTAGE: 57 years EKG: Sinus rhythm NORMAL ECG PREVIOUS TRACING : 08/12/2004 17.04 DOCTOR: Kiki Celis Interpretating Date/Time 09/27/2017 17:32:41
--- NOTE | 2017-09-27 18:10 | ECHRPT ---
Indication: cardiomyopathy CONCLUSIONS Very technically difficult study. In limited views, the left ventricular systolic function is normal with an estimated ejection fracti on in the range of 60-65%. [id number] mitral valve regurgitation. There is mild tricuspid valve regurgitation. BP: / HR: Rhythm: MEASUREMENTS (Male / Female) Normal Values Technical Quality:Very technically difficult study 2D ECHO LV Diastolic Diameter PLAX 4.7 cm 4.2 - 5.9 / 3.9 - 5.3 cm LV Systolic Diameter PLAX 3.4 cm IVS Diastolic Thickness 1.7 cm 0.6 - 1.0 / 0.6 - 0.9 cm LVPW Diastolic Thickness 1.3 cm 0.6 - 1.0 / 0.6 - 0.9 cm LV Relative Wall Thickness 0.6 RV Internal Dim ED PLAX 3.2 cm M-MODE Aortic Root Diameter MM 3.2 cm LA Systolic Diameter MM 4.1 cm LA Ao Ratio MM 1.3 AV Cusp Separation MM 2.1 cm DOPPLER Mitral E Point Velocity 54.3 cm/s Mitral A Point Velocity 74.0 cm/s Mitral E to A Ratio 0.7 LV E' Lateral Velocity 6.7 cm/s Mitral E to LV E' Lateral Ratio 8.1 LV E' Septal Velocity 6.2 cm/s Mitral E to LV E' Septal Ratio 8.7 FINDINGS LEFT VENTRICLE Normal left ventricular size. In limited views, the left ventricular systolic function is normal with an estimated ejection fracti on in the range of 60-65%. There was limited left ventricular wall motion assessment due to poor endocardial visualization. RIGHT VENTRICLE The right ventricle was not well visualized. LEFT ATRIUM The left atrial size is mildly dilated. RIGHT ATRIUM The right atrium is not well visualized. ATRIAL SEPTUM The interatrial septum not well visualized. MITRAL VALVE The mitral valve is not well visualized. [id number] mitral valve regurgitation. AORTIC VALVE The aortic valve is not well visualized. No aortic valve regurgitation. No aortic valve stenosis. TRICUSPID VALVE The tricuspid valve is not well visualized. There is mild tricuspid valve regurgitation. PULMONARY VALVE The pulmonary valve is not well visualized. Fransisco Garcia DO (Electronically Signed) Final Date:27 September 2017 18:09
--- NOTE | 2017-09-27 22:31 | RADRPT ---
EXAM DATE/TIME: 09/27/2017 21:50 [facility] COMPARISON: No previous studies available for comparison. EXTERNAL COMPARISON : [facility], US Bilateral kidney, August 31, 2017 INDICATIONS : Abnormal labs. MEDICAL HISTORY : Hypercholesterolemia. Peripheral neuropathy. Hypertension. COPD. Dyspnea. Arthritis. Diabetes. Ch ronic kidney disease. SURGICAL HISTORY : section. ENCOUNTER: Initial ACUITY: 1 day PAIN SCORE: 0/10 LOCATION: Bilateral flank MEASUREMENTS: RIGHT KIDNEY: 10.2 x 4.0 x 5.4 cm LEFT KIDNEY: 10.0 x 3.8 x 5.6 cm FINDINGS: Both kidneys measure about 10 cm in length. No hydronephrosis. 4 mm calculus mid pole left kidney. No focal bladder abnormality. CONCLUSION: 1. Nonobstructing left renal calculi. No hydronephrosis. Rajiv Cardenas MD on September 27, 2017 at 22:26 Board Certified Radiologist. This report was verified electronically.
[2017-09-28] MEDS: CLINDAMYCIN 600 MG/NS PREMIX 50 ML IV SCH ×2 (00:08→04:57)
[2017-09-28 00:10] VITALS: PULSE 77
[2017-09-28 00:11] VITALS: BP 153/65; PULSE 74; RESP 19; TEMP 98.7; O2SAT 93
[2017-09-28 03:59] VITALS: BP 181/74; PULSE 66; PULSE 71; RESP 19; TEMP 98.3; O2SAT 93
[2017-09-28] MEDS: HEPARIN SODIUM - SQ 10,000 UNITS/ML VIAL SQ SCH (04:57)
[2017-09-28 07:18] VITALS: BP 198/83; PULSE 72; RESP 18; TEMP 98; O2SAT 96
[2017-09-28] MEDS: INSULIN ASPART SUPPLEMENTAL SCALE SQ SCH (08:00)
--- NOTE | 2017-09-28 08:42 | HHI.FF ---
Face to Face Verification Diagnosis: (1) KYAW (acute kidney injury) Physical Therapy Order: Evaluate and Treat, Improve ambulation, Strength and gait training Home Health Nursing Order: Medical education Signs/symptoms of disease process (edema control) I have seen patient Corine Nguyen on 09/28/17. My clinical findings support the need for the requested home health care services because: Deconditioned w/ increased weakness I certify that my clinical findings support that this patient is homebound because: Unsafe to leave home unassisted Oseas Arteaga MD Sep 28, 2017 08:42
[2017-09-28] MEDS: GABAPENTIN 300 MG CAP PO SCH (08:53)
[2017-09-28] MEDS: PRAVASTATIN SOD 40 MG TAB PO SCH (08:54)
[2017-09-28] MEDS: cloNIDine HCL 0.2 MG TAB PO SCH (08:54)
[2017-09-28] MEDS: FAMOTIDINE 20 MG TAB PO SCH (08:55)
[2017-09-28] MEDS: ACETAMINOPHEN/HYDROcodone 325 MG/5 MG TAB PO PRN (08:55)
[2017-09-28] MEDS: CITALOPRAM HYDROBROMIDE 20 MG TAB PO SCH (08:56)
[2017-09-28] MEDS: INSULIN ASPAR PROT 70/30 1,000 UNITS/10 ML VIAL SQ SCH (08:57)
[2017-09-28] MEDS: FUROSEMIDE 20 MG/2 ML VIAL IV PUSH SCH (08:59)
[2017-09-28] MEDS ORDERED: hydrALAZINE HCL 50 MG TAB PO SCH (09:00)
[2017-09-28] MEDS: SODIUM CHLORIDE 0.9% FLUSH 10 ML FLUSH IV FLUSH SCH (09:00)
--- NOTE | 2017-09-28 09:29 | HHI.NPPN ---
Subjective General Problems: Diabetes, Hypertension Renal Failure: Chronic History of Present Illness Patient is a 57-year-old female with a past medical history significant for hypertension, COPD, insulin-dependent diabetes mellitus, hyperlipidemia and chronic kidney disease. Who presents to the emergency department at the suggestion of her physician for evaluated elevated blood pressure with SBP in the 200's and lower extremity unilateral swelling. She also complains of increasing shortness of breath on exertion and has "leg wounds" . The patient follows with Dr. Fitzpatrick who requests she be admitted for further diuresis with monitoring of her worsening renal function. History obtained from patient. Reports that around 6 months ago she was total that her GFR was 29 and that probably over the last 5 years her physician has been telling her that her kidney function has been declining. She has never been followed by manager play but has a appt scheduled with Dr. Mendes on the . She has had diabetes for over 5 years and has been insulin dependent for the last 2 1/2 years. She has not been well controlled with blood sugars in the 200's. She has had HTN since her early 20's. As of lately her blood pressure medication has been changed around and her blood pressure has not been as well controlled. Additional Remarks Resting comfortably. No SOB noted. Blood pressure elevated this AM (Zulma Iverson) Review of Systems Respiratory Respiratory Remarks No SOB (Zulma Iverson) Cardiovascular Cardiac Remarks No CP{ (Zulma Iverson) Gastrointestinal GI Remarks No Abdominal pain (Zulma Iverson) Genitourinary Remarks No dysuria (Zulma Iverson) Skin Skin: Skin Rash (Zulma Iverson) Objective Data Data Vital Signs Date Time Temp Pulse Resp B/P (MAP) Pulse Ox O2 Delivery O2 Flow Rate FiO2 09/28/17 07:18 98.0 72 18 198/83 (121) 96 09/28/17 03:59 66 09/28/17 03:59 98.3 71 19 181/74 (109) 93 09/28/17 00:11 98.7 74 19 153/65 (94) 93 09/28/17 00:10 77 09/27/17 23:46 Nasal Cannula 2.00 09/27/17 22:23 98.3 74 20 166/73 (104) 92 09/27/17 21:45 20 09/27/17 20:23 98.2 78 20 167/70 (102) 93 09/27/17 20:10 74 09/27/17 15:35 98.6 74 18 199/84 (122) 93 09/27/17 15:00 68 09/27/17 11:21 98.3 75 18 210/86 (127) 95 (Zulma Iverson) -: 09/27/17 0540 09/27/17 0540 Imaging Last Impressions Renal Ultrasound 09/27/17 0000 Signed Impressions: Service Date/Time: Wednesday, September 27, 2017 21:50 - CONCLUSION: 1. Nonobstructing left renal calculi. No hydronephrosis. Rajiv Cardenas MD Chest X-Ray 09/26/17 1729 Signed Impressions: Service Date/Time: Tuesday, September 26, 2017 17:42 - CONCLUSION: Compensated cardiomegaly otherwise negative Jam Wall MD FACR Lower Extremity Ultrasound 09/26/17 0000 Signed Impressions: Service Date/Time: Tuesday, September 26, 2017 18:12 - CONCLUSION: Normal examination. Rajiv Cardenas MD (Zulma Iverson) Physical Exam General Appearance: No Acute Distress, Comfortable, Obese (Zulma Iverson) Eyes Eye Exam: Pupils Equal (Zulma Iverson) Pulmonary Resp Exam: Breath Sounds Equal, No Distress (Zulma Iverson) Cardiology CV Exam: Regular, Normal Sinus Rhythm (Zulma Iverson) Gastrointestinal/Abdomen GI Exam: Soft, Non-Tender, Bowel Sounds Present (Zulma Iverson) Integumentary Skin Exam: Warm, Dry Skin Remarks Rash noted on bilateral lower extremity (Zulma Iverson) Extremeties Extremities Exam: Trace Edema (Zulma Iverson) Neurologic Neuro Exam: Alert, Awake (Zulma Iverson) Assessment/Plan Discussed Condition With: Patient Assessment Summary: CKD Stage IV Problem List: (1) KYAW (acute kidney injury) ICD Codes: N17.9 - Acute kidney failure, unspecified Plan: Possible KYAW on CKD. Per records there is a creatinine on 09/06/17 at 2.42 and GFR 20 so this could be her baseline numbers. CKD with GFR over 6 months ago at 29 most likely from uncontrolled HTN and diabetes. Patient reports that over the last 5 years she has been told she has been having declining kidney function. 3 + protein in urine noted possibly diabetic renal disease Eosinophil noted in blood, edema, and rash noted. Will order urine eosinophils Good urine output Potassium WNL Lower extremity edema left greater than right. Negative for DVT per US. Continue lasix and will monitor renal function Renal US ordered and noted Renal panel, mg, phos ANCA and complement pending If Creatinine remain stable, can be discharge follow up appt scheduled. (2) Essential hypertension ICD Codes: I10 - Essential (primary) hypertension Status: Acute Plan: Blood pressure elevated Continue hydralazine, clonidine, and amlodipine. Amlodipine increased yesterday and hydralazine this am Will monitor and make adjustments as needed. (3) Diabetes mellitus with renal manifestation ICD Codes: E11.29 - Type 2 diabetes mellitus with other diabetic kidney complication Status: Acute Plan: Diabetic neuropathy: on gabapentin BS AC and HS Insulin dependent Maintain BS between 140mg/dl to 180 mg/dl (4) Obesity ICD Codes: E66.9 - Obesity, unspecified Status: Acute (5) Hyperlipidemia ICD Codes: E78.5 - Hyperlipidemia, unspecified Status: Acute Plan: continue statin (6) Leg edema ICD Codes: R60.0 - Localized edema Status: Acute (7) Wound of lower extremity ICD Codes: S81.809A - Unspecified open wound, unspecified lower leg, initial encounter Plan: Keflex (Zulma Iverson) Problem List: (1) KYAW (acute kidney injury) ICD Codes: N17.9 - Acute kidney failure, unspecified Plan: Possible KYAW on CKD. Per records there is a creatinine on 09/06/17 at 2.42 and GFR 20 so this could be her baseline numbers. CKD with GFR over 6 months ago at 29 most likely from uncontrolled HTN and diabetes. Patient reports that over the last 5 years she has been told she has been having declining kidney function. 3 + protein in urine noted possibly diabetic renal disease Eosinophil noted in blood, edema, and rash noted. Will order urine eosinophils Good urine output Potassium WNL Lower extremity edema left greater than right. Negative for DVT per US. Continue lasix and will monitor renal function Renal US ordered and noted Renal panel, mg, phos ANCA and complement pending If Creatinine remain stable, can be discharge follow up appt scheduled. Creatinine is stable, BP is elevated. For D/C, will follow as out patient. (2) Essential hypertension ICD Codes: I10 - Essential (primary) hypertension Status: Acute Plan: Blood pressure elevated Continue hydralazine, clonidine, and amlodipine. Amlodipine increased yesterday and hydralazine this am Will monitor and make adjustments as needed. (3) Diabetes mellitus with renal manifestation ICD Codes: E11.29 - Type 2 diabetes mellitus with other diabetic kidney complication Status: Acute Plan: Diabetic neuropathy: on gabapentin BS AC and HS Insulin dependent Maintain BS between 140mg/dl to 180 mg/dl (4) Obesity ICD Codes: E66.9 - Obesity, unspecified Status: Acute (5) Hyperlipidemia ICD Codes: E78.5 - Hyperlipidemia, unspecified Status: Acute Plan: continue statin (6) Leg edema ICD Codes: R60.0 - Localized edema Status: Acute (7) Wound of lower extremity ICD Codes: S81.809A - Unspecified open wound, unspecified lower leg, initial encounter Plan: Keflex (Gerri Mendes MD) Zulma Iverson Sep 28, 2017 09:29 Gerri Mendes MD Sep 28, 2017 11:39
[2017-09-28 10:29] LABS: CALCIUM 9.7 MG/DL (8.5-10.1); CREATININE 2.12 MG/DL (0.50-1.00); PHOSPHORUS 3.9 MG/DL (2.5-4.9)
[2017-09-28 10:32] LABS: COMPLEMENT C3 159 MG/DL (90-180); COMPLEMENT C4 39 MG/DL (10-40)
[2017-09-28] MEDS ORDERED: CEPH500C PO (10:48)
[2017-09-28] MEDS ORDERED: HYDR-3800 PO (10:48)
[2017-09-28] MEDS ORDERED: AMLO10 PO (10:48)
[2017-09-28] MEDS ORDERED: CARV25TA PO (10:48)
[2017-09-28] MEDS ORDERED: FURO20TA PO (10:51)
[2017-09-28] MEDS ORDERED: CEPHALEXIN MONOHYDRATE 500 MG CAP PO SCH (12:00)
[2017-09-28 12:02] VITALS: BP 141/80; PULSE 68; RESP 18; TEMP 98.6; O2SAT 93
--- NOTE | 2017-09-28 13:57 | HHI.PR ---
Subjective Remarks Follow-up hypertension and shortness of breath. BP improving after increasing Norvasc and started on Lasix and hydralazine. Denies any complaints no headache , dizziness and chest pain and shortness of breath. Currently on room air discussed with nursing staff Objective Vitals Vital Signs Date Time Temp Pulse Resp B/P (MAP) Pulse Ox O2 Delivery O2 Flow Rate FiO2 09/28/17 12:02 98.6 68 18 141/80 (100) 93 09/28/17 07:18 98.0 72 18 198/83 (121) 96 09/28/17 03:59 66 09/28/17 03:59 98.3 71 19 181/74 (109) 93 09/28/17 00:11 98.7 74 19 153/65 (94) 93 09/28/17 00:10 77 09/27/17 23:46 Nasal Cannula 2.00 09/27/17 22:23 98.3 74 20 166/73 (104) 92 09/27/17 21:45 20 09/27/17 20:23 98.2 78 20 167/70 (102) 93 09/27/17 20:10 74 09/27/17 15:35 98.6 74 18 199/84 (122) 93 09/27/17 15:00 68 I/O 09/27/17 09/27/17 09/27/17 09/28/17 09/28/17 09/28/17 07:00 15:00 23:00 07:00 15:00 23:00 Intake Total 490 ml 240 ml 250 ml Output Total 1500 ml 200 ml 1000 ml Balance 490 ml -1260 ml 50 ml -1000 ml Intake Oral 490 ml 240 ml 250 ml Output Urine Total 1500 ml 200 ml 1000 ml # Voids 2 Result Diagram: 09/27/17 0540 09/28/17 0910 Imaging Last Impressions Renal Ultrasound 09/27/17 0000 Signed Impressions: Service Date/Time: Wednesday, September 27, 2017 21:50 - CONCLUSION: 1. Nonobstructing left renal calculi. No hydronephrosis. Rajiv Cardenas MD Chest X-Ray 09/26/17 1729 Signed Impressions: Service Date/Time: Tuesday, September 26, 2017 17:42 - CONCLUSION: Compensated cardiomegaly otherwise negative Jam Wall MD FACR Lower Extremity Ultrasound 09/26/17 0000 Signed Impressions: Service Date/Time: Tuesday, September 26, 2017 18:12 - CONCLUSION: Normal examination. Rajiv Cardenas MD Objective Remarks GENERAL: Obese, female sitting up in bed SKIN: Multiple excoriations on the posterior aspect of bilateral lower extremities with surrounding erythema which is improving CARDIOVASCULAR: Regular rate and rhythm without murmurs, gallops, or rubs. RESPIRATORY: Clear to auscultation. Breath sounds equal bilaterally. No wheezes , rales, or rhonchi. GASTROINTESTINAL: Abdomen soft, non-tender, nondistended. No guarding. MUSCULOSKELETAL: Bilateral lower extremity edema, left greater than right. No calf tenderness. NEUROLOGICAL: Awake and alert. Cranial nerves II through XII intact. Motor and sensory grossly within normal limits. Normal speech. Procedures none A/P Problem List: (1) CHF (congestive heart failure) ICD Code: I50.9 - Heart failure, unspecified Status: Acute (2) Leg edema ICD Code: R60.0 - Localized edema Status: Acute Assessment and Plan 1. Lower extremity edema/fluid overload possible new onset heart failure. Improving on Lasix. Echocardiogram shows preserved LV function. 2. Shortness of breath/COPD on nasal cannula. States her PCP has arranged home oxygen. Stable 3. Chronic kidney disease stage IV. Stable. Monitor renal function. Consult nephrology avoid nephrotoxins 4. Hypertension/hyperlipidemia. BP readings much improved after med adjustments as previously mentioned. 5. Lower extremity wounds with cellulitis. Improving switch to by mouth Keflex Counseled patient to abstain from scratching FEN Heart healthy diet Electrolytes: Monitor and replete when necessary Heparin Physical therapy evaluation Discharge Planning Discharge patient to home with physical therapy and visiting nurse Condition on discharge: Improved Regular Diet as tolerated Ad Keira activity no driving Rx written: Norvasc, Keflex, Lasix and hydralazine Follow-up with primary care physician and nephrology. Repeat BMP in 1 week Problem Qualifiers (1) CHF (congestive heart failure): Qualified Codes: I50.9 - Heart failure, unspecified Oseas Arteaga MD Sep 28, 2017 13:57
== END 2017-09-28 16:47 | disposition home or self-care (01) ==
LOC: NEPE 15:03 → NEDA 19:19 → NEPGCP 22:15
PROVIDERS: ADMIT Internal Medicine; ATTEND Internal Medicine
DX: I50.9 Heart failure, unspecified (principal); N18.4 Chronic kidney disease, stage 4 (severe); I13.0 Hypertensive heart and chronic kidney disease with heart failure and stage 1 through stage 4 chronic kidney disease, or unspecified chronic kidney disease; E11.22 Type 2 diabetes mellitus with diabetic chronic kidney disease; E78.00 Pure hypercholesterolemia, unspecified; J44.9 Chronic obstructive pulmonary disease, unspecified; L03.116 Cellulitis of left lower limb; E11.40 Type 2 diabetes mellitus with diabetic neuropathy, unspecified; N17.9 Acute kidney failure, unspecified; N20.0 Calculus of kidney; I89.0 Lymphedema, not elsewhere classified; M19.90 Unspecified osteoarthritis, unspecified site; E66.9 Obesity, unspecified; Z79.4 Long term (current) use of insulin; Z79.899 Other long term (current) drug therapy; Z87.891 Personal history of nicotine dependence; Z91.19 Patient's noncompliance with other medical treatment and regimen
CPT/HCPCS: 71045; 76775; 80048; 80053; 80069; 81001; 82948; 83735; 83880; 85007; 85027; 85610; 85730; 86021; 86160; 87086; 93005; 93306; 93970; 96365; 96372; 96375; 96376; 97162; 99285; G0378; G8987; G8988; J1644; J1815; J1940

== ENCOUNTER → 2017-10-17 | Outpatient (CLI) | payer MEDICARE ==
[~2017-10-17] MED LIST changes: +AMLO10 PO; -AMLO10TA2 PO; -ATEN100T PO; +CARV25TA PO; +CEPH500C PO; -CLAR10CA3 PO; -CYCL10TA PO; +FURO20TA PO; +GABA600T PO; -GABA800T PO; +HYDR-3516 PO; +HYDR-3800 PO; -LEVEMIR SQ; -LIPI80TA PO; -NOVO7030P2 SQ; +NOVOLOGMXP SQ; -PIOG30 PO; -PRIL20CA9 PO; -TRAZ50TA12 PO; +ZANT150T2 PO; +ZOCO20TA PO; -[UNRECOGNIZED DRUG - OTHER] TOP; -[UNRECOGNIZED DRUG - SUPPLY] SQ
[2017-10-17 13:51] LABS: AUTOMATED NEUTROPHIL # 7.3 TH/MM3 (1.8-7.7); BASOPHIL # 0.1 TH/MM3 (0-0.2); BASOPHIL % 1.3 % (0.0-2.0); EOSINOPHIL # 0.6 TH/MM3 (0-0.4); EOSINOPHIL % 5.8 % (0.0-4.0); HEMATOCRIT 38.3 % (35.0-46.0); HEMOGLOBIN 12.7 GM/DL (11.6-15.3); LYMPH % 15.6 % (9.0-44.0); LYMPHOCYTE # 1.7 TH/MM3 (1.0-4.8); MEAN CELL VOLUME 92.5 FL (80.0-100.0); MEAN CORPUSCULAR HEMOGLOBIN 30.6 PG (27.0-34.0); MEAN CORPUSCULAR HGB CONC 33.1 % (32.0-36.0); MONOCYTE # 1.2 TH/MM3 (0-0.9); NEUT % 66.3 % (16.0-70.0); PLATELET COUNT 257 TH/MM3 (150-450); RED BLOOD COUNT 4.14 MIL/MM3 (4.00-5.30); RED CELL DISTRIBUTION WIDTH 16.1 % (11.6-17.2)
[2017-10-17 13:58] LABS: ALBUMIN 3.3 GM/DL (3.4-5.0); AST (GOT) 12 U/L (15-37); BICARBONATE 23.6 MEQ/L (21.0-32.0); BLOOD UREA NITROGEN 23 MG/DL (7-18); CALCIUM 9.1 MG/DL (8.5-10.1); CHLORIDE 108 MEQ/L (98-107); CREATININE 2.37 MG/DL (0.50-1.00); GLOMERULAR FILTRATION RATE 21 ML/MIN (>89); GLUCOSE,FASTING 204 MG/DL (74-99); SODIUM (NA) 139 MEQ/L (136-145)
[2017-10-17 14:00] LABS: ALT (GPT) 18 U/L (10-53); CHOLESTEROL 211 MG/DL (120-200)
[2017-10-17 14:06] LABS: ALKALINE PHOSPHATASE 55 U/L (45-117); CHOLESTEROL/ HDL RATIO 4.12 RATIO; HDL CHOLESTEROL 51.1 MG/DL (40.0-60.0); LDL CHOLESTEROL 87 MG/DL (0-99); TOTAL BILIRUBIN ADULT 0.2 MG/DL (0.2-1.0); TOTAL PROTEIN 6.8 GM/DL (6.4-8.2); TRIGLYCERIDES 366 MG/DL (42-150)
[2017-10-17 14:42] LABS: BANDS 1 % (0-6); BASOPHILS 1 % (0-2); LYMPHOCYTES 21 % (9-44); METAMYELOCYTES 1 % (0-1); MONOCYTES 11 % (0-8); MYELOCYTES 3 % (0-0); NEUTROPHIL # MANUAL DIFF 7.2 TH/MM3 (1.8-7.7); POLYS (SEG NEUTROPHILS) 60 % (16-70)
[2017-10-17 16:46] LABS: HEMOGLOBIN A1C 9.9 % (4.3-6.0)
== END ==
LOC: PLAB 09:20
PROVIDERS: ATTEND Family Medicine
DX: D39.0 Neoplasm of uncertain behavior of uterus (principal); E78.2 Mixed hyperlipidemia; F41.9 Anxiety disorder, unspecified; M25.561 Pain in right knee; I12.9 Hypertensive chronic kidney disease with stage 1 through stage 4 chronic kidney disease, or unspecified chronic kidney disease; N18.9 Chronic kidney disease, unspecified; E11.22 Type 2 diabetes mellitus with diabetic chronic kidney disease; E11.65 Type 2 diabetes mellitus with hyperglycemia; F32.9 Major depressive disorder, single episode, unspecified; K21.9 Gastro-esophageal reflux disease without esophagitis; E66.9 Obesity, unspecified; Z87.891 Personal history of nicotine dependence
CPT/HCPCS: 36415; 80053; 80061; 83036; 85007; 85027

== ENCOUNTER → 2017-10-19 | Outpatient (CLI) | payer MEDICARE | LOC: PLAB 09:01 | PROVIDERS: ATTEND Family Medicine | DX: K62.6 Ulcer of anus and rectum (principal) | CPT/HCPCS: 36415; 86695; 86696 ==

== ENCOUNTER → 2017-10-19 | Outpatient (CLI) | payer MEDICARE | LOC: PHRSP 07:29 | PROVIDERS: ATTEND Internal Medicine | DX: J44.9 Chronic obstructive pulmonary disease, unspecified (principal) | CPT/HCPCS: 36600; 82805; 94060; 94726; 94729 ==

== ENCOUNTER → 2017-11-29 | Outpatient (CLI) | payer MEDICARE ==
[2017-11-29 18:04] LABS: AUTOMATED NEUTROPHIL # 11.4 TH/MM3 (1.8-7.7); BASOPHIL # 0.2 TH/MM3 (0-0.2); BASOPHIL % 1.3 % (0.0-2.0); EOSINOPHIL # 0.8 TH/MM3 (0-0.4); EOSINOPHIL % 4.9 % (0.0-4.0); HEMATOCRIT 34.8 % (35.0-46.0); HEMOGLOBIN 11.3 GM/DL (11.6-15.3); LYMPH % 14.8 % (9.0-44.0); LYMPHOCYTE # 2.5 TH/MM3 (1.0-4.8); MEAN CORPUSCULAR HEMOGLOBIN 30.5 PG (27.0-34.0); MEAN CORPUSCULAR HGB CONC 32.5 % (32.0-36.0); MEAN PLATELET VOLUME 8.2 FL (7.0-11.0); MONO % 10.8 % (0.0-8.0); MONOCYTE # 1.8 TH/MM3 (0-0.9); NEUT % 68.2 % (16.0-70.0); PLATELET COUNT 254 TH/MM3 (150-450); RED CELL DISTRIBUTION WIDTH 16.5 % (11.6-17.2); WHITE BLOOD COUNT 16.8 TH/MM3 (4.0-11.0)
[2017-11-29 18:06] LABS: ALBUMIN 3.3 GM/DL (3.4-5.0); BICARBONATE 24.7 MEQ/L (21.0-32.0); CALCIUM 8.9 MG/DL (8.5-10.1); CREATININE 2.74 MG/DL (0.50-1.00); PHOSPHORUS 4.3 MG/DL (2.5-4.9)
[2017-11-29 18:57] LABS: BANDS 3 % (0-6); BASOPHILS 2 % (0-2); LYMPHOCYTES 12 % (9-44); METAMYELOCYTES 4 % (0-1); MONOCYTES 13 % (0-8); MYELOCYTES 2 % (0-0); NEUTROPHIL # MANUAL DIFF 11.3 TH/MM3 (1.8-7.7); POLYS (SEG NEUTROPHILS) 58 % (16-70)
[2017-11-29 18:58] LABS: OVALOCYTES 1+ (NORMAL)
== END ==
LOC: PLAB 13:44
PROVIDERS: ATTEND Internal Medicine Nephrology
DX: N18.3 Chronic kidney disease, stage 3 (moderate) (principal)
CPT/HCPCS: 36415; 80069; 85007; 85027

== ENCOUNTER → 2017-12-07 | Outpatient (CLI) | payer MEDICARE | LOC: PLAB 14:23 | PROVIDERS: ATTEND Nurse Practitioner Family | DX: I50.9 Heart failure, unspecified (principal) | CPT/HCPCS: 36415; 83880 ==

== ENCOUNTER → 2017-12-28 | Outpatient (CLI) | payer MEDICARE ==
[2017-12-28 19:37] LABS: BICARBONATE 25.1 MEQ/L (21.0-32.0); CALCIUM 8.8 MG/DL (8.5-10.1); CREATININE 3.17 MG/DL (0.50-1.00)
== END ==
LOC: PLAB 15:26
PROVIDERS: ATTEND Internal Medicine Nephrology
DX: N18.3 Chronic kidney disease, stage 3 (moderate) (principal)
CPT/HCPCS: 36415; 80048

== ENCOUNTER → 2018-01-06 | Outpatient (CLI) | payer MEDICARE ==
[2018-01-06 13:30] LABS: AUTOMATED NEUTROPHIL # 12.4 TH/MM3 (1.8-7.7); BASOPHIL # 0.2 TH/MM3 (0-0.2); BASOPHIL % 1.3 % (0.0-2.0); EOSINOPHIL # 1.1 TH/MM3 (0-0.4); EOSINOPHIL % 6.1 % (0.0-4.0); HEMATOCRIT 29.5 % (35.0-46.0); HEMOGLOBIN 9.7 GM/DL (11.6-15.3); LYMPH % 11.6 % (9.0-44.0); MEAN CELL VOLUME 93.4 FL (80.0-100.0); MEAN CORPUSCULAR HEMOGLOBIN 30.6 PG (27.0-34.0); MEAN CORPUSCULAR HGB CONC 32.8 % (32.0-36.0); MEAN PLATELET VOLUME 7.7 FL (7.0-11.0); MONO % 9.3 % (0.0-8.0); MONOCYTE # 1.6 TH/MM3 (0-0.9); NEUT % 71.7 % (16.0-70.0); PLATELET COUNT 271 TH/MM3 (150-450); RED BLOOD COUNT 3.16 MIL/MM3 (4.00-5.30); RED CELL DISTRIBUTION WIDTH 17.4 % (11.6-17.2); WHITE BLOOD COUNT 17.3 TH/MM3 (4.0-11.0)
[2018-01-06 14:00] LABS: BANDS 9 % (0-6); BASOPHILS 1 % (0-2); LYMPHOCYTES 10 % (9-44); METAMYELOCYTES 3 % (0-1); MONOCYTES 4 % (0-8); MYELOCYTES 4 % (0-0); NEUTROPHIL # MANUAL DIFF 14.2 TH/MM3 (1.8-7.7); POLYS (SEG NEUTROPHILS) 66 % (16-70)
[2018-01-06 14:01] LABS: OVALOCYTES 1+ (NORMAL)
[2018-01-06 14:07] LABS: BICARBONATE 23.9 MEQ/L (21.0-32.0); CALCIUM 8.6 MG/DL (8.5-10.1); CREATININE 3.24 MG/DL (0.50-1.00)
== END ==
LOC: CLAB 13:01
PROVIDERS: ATTEND Nurse Practitioner Family
DX: D72.829 Elevated white blood cell count, unspecified (principal); N18.3 Chronic kidney disease, stage 3 (moderate)
CPT/HCPCS: 36415; 80048; 85007; 85027

== ENCOUNTER 2018-11-01 11:28 | Inpatient (IN) ==
[2018-11-01] MEDS ORDERED: Morphine Sulfate Inj 2 MG/ML Vial IV.PUSH ONE (12:20)
--- NOTE | 2018-11-01 12:39 | ED ---
HPI General Chief complaint: Shortness of Breath/Dyspnea Stated complaint: SOB Time Seen by Provider: 11/01/18 12:01 Source: patient, family, RN notes reviewed and old records reviewed Mode of arrival: EMS History of Present Illness HPI narrative: 58yF presenting with shortness of breath. The patient has a history of CHF and ESRD not yet on HD; she says that over the past 3-4 days, she 's had increasing dyspnea on minimal exertion, orthopnea, and non-productive cough. She reports that she's had decreased urination despite taking 20 mg lasix daily. Denies fever, chest pain, palpitations, nausea or vomiting. Secondary School Teacher Librarian is Dr. Mendes, vascular surgeon is Dr. Canales; she had an AVF placed in September in anticipation of needing exterminator HD. Family history non-contributory. Related Data Home Medications Medication Instructions Recorded Confirmed amlodipine 10 mg PO DAILY 09/27/18 11/01/18 atorvastatin 40 mg PO QPM 09/27/18 11/01/18 carvedilol 25 mg PO BID 09/27/18 11/01/18 citalopram 20 mg PO DAILY 09/27/18 11/01/18 clonidine HCl 0.2 mg PO BID 09/27/18 11/01/18 diphenhydramine HCl 25 mg PO HS 09/27/18 11/01/18 furosemide 20 mg PO BID 09/27/18 11/01/18 hydralazine 100 mg PO TID 09/27/18 11/01/18 insulin asp prt-insulin aspart 54 unit SUBCUT QAM 09/27/18 11/01/18 [Novolog Mix 70-30 U-100 Insuln] insulin asp prt-insulin aspart 58 unit SUBCUT QPM 09/27/18 11/01/18 [Novolog Mix 70-30 U-100 Insuln] insulin regular human [Novolin R 1 sliding scale dose SUBCUT UD 09/27/18 Regular U-100 Insuln] oxymetazoline [Afrin 2 spray INTRANASAL Q12H 09/27/18 11/01/18 (oxymetazoline)] umeclidinium-vilanterol 1 inh INHALATION Q24H 09/27/18 11/01/18 ranitidine HCl [Zantac] 150 mg PO DAILY 09/28/18 11/01/18 gabapentin 200 mg PO DAILY 11/01/18 11/01/18 prednisone 1 mg PO DAILY 11/01/18 11/01/18 Allergies Allergy/AdvReac Type Severity Reaction Status Date / Time No Known Allergies Allergy Verified 11/01/18 12:05 Review of Systems ROS: all other systems reviewed are negative Constitutional Denies fever(s) Eyes Denies blurry vision ENT Denies nasal congestion Cardiovascular Denies chest pain Respiratory Reports cough and Reports dyspnea on exertion Gastrointestinal Denies nausea Genitourinary Comments: (+) decreased urination Musculoskeletal Denies back pain Neurologic Denies confusion Psychiatric Denies confusion [facility] Medical History Medical History AV fistula (Acute) Anxiety (Acute) Arthritis (Acute) Bilateral knee pain (Acute) COPD (chronic obstructive pulmonary disease) (Acute) Chronic shoulder pain (Acute) Congestive heart failure (CHF) (Acute) Edema extremities (Acute) End stage kidney disease (Acute) Hyperlipidemia (Acute) Hypertension (Acute) Neuropathy (Acute) Shortness of breath (Acute) Wears dentures (Acute) Wears glasses (Acute) Surgical History Surgical History Hx of section (Acute) Social History Social History Substance History: No History of Abuse Second Hand Smoke Exposure: No Smoking Status: Former smoker How Often Do You Have a Drink Containing Alcohol: Monthly or less Recent Travel in [facility] within the Last 8 Weeks: No Recent Out of Country Travel within the Last 8 Weeks: No Immunization History Tetanus Immunization: Unsure Exam Const General: no acute distress [facility] Face and sinus: normal facial exam Eyes General: appearance normal, both eyes and all related structures Chest Chest: normal inspection of the chest Resp Other: Mildly tachypneic but speaking in complete sentences O2 sats in low to mid 80s on room air Bibasilar rales, no wheezing Cardio Rate: regular rate Rhythm: regular rhythm GI Inspection: non-distended Palpation: soft and nontender Skin General: no rashes or lesions noted Neuro General: alert, awake and no focal motor deficits Extrem Other: 1+ pitting edema to bilateral lower extremities AVF in left AC with (+) bruit and thrill Psych Affect: normal affect Course Initial Documented Vital Signs Temperature 97.9 F 11/01/18 12:05 Pulse Rate 82 11/01/18 12:05 Respiratory Rate 22 11/01/18 12:05 Blood Pressure 218/86 H 11/01/18 12:05 Pulse Oximetry 93 L 11/01/18 12:05 Last Documented Vital Signs Temperature 97.9 F 11/01/18 12:05 Pulse Rate 82 11/01/18 12:05 Respiratory Rate 22 11/01/18 12:05 Blood Pressure 218/86 H 11/01/18 12:05 Pulse Oximetry 95 11/01/18 12:20 Critical Care Time Critical Care Time: Yes Total Critical Care Time: 31 Attestation: Counseling/ Coordination of Care: This patient is critically ill with impairment of one or more vital organ systems with a high probability of imminent or life-threatening deterioration. High-complexity medical decision making was required to support vital organ function and/ or prevent deterioration of the patient's condition. Total critical care time spent is 31 minutes giving full attention to this patient. This includes examining and stabilizing the patient, gathering a history from a source other than the patient (i.e., chart review), formulating a differential diagnosis, ordering and interpreting laboratory tests and EKG, ordering and interpreting radiology tests, discussing the patient's care with other providers ([facility] residents), re-evaluation at frequent intervals, and documentation. Amount of time is separate from teaching, counseling the patient and/or family, and exclusive of procedures. Medical Decision Making MDM Narrative Medical decision making narrative: Assessment: 58yF presenting with dyspnea on exertion, history of ESRD Plan: EKG and monitor- The vehicle monitor technician revealed normal sinus rhythm with heart rate in the 60s as interpreted by me. The vehicle monitor technician was ordered secondary to dyspnea and concern for CHF exacerbation and/or pulmonary edema. CXR Labs, including cardiac enzymes and BNP Nitroglycerin for presumed pulmonary edema, lasix if K+ is above 3.5 UA Admission Addendum: Patient found to have leukocytosis of 47K (she reports a history of leukocytosis and is being worked up as an outpatient for this); acute on chronic kidney insufficiency (creat 3.25, up from 2.78 on previous labs), initial trop of 0.24, and CXR consistent with pulmonary edema. She reports improvement in breathing after receiving nitroglycerin. Will give ASA, K dur, and lasix. Case discussed with [facility] residents. Medical Screen Exam Complete: Yes Emergency Medical Condition: Yes Differential Diagnosis Differential Diagnosis: Differential diagnosis includes, but is not limited to: pulmonary edema, pleural effusion, pneumonia, ACS, CHF exacerbation, arrhythmia , ESRD, electrolyte abnormality Medical Records Medical records reviewed: Yes I reviewed the patient's medical records. Lab Data Lab results reviewed: Yes I reviewed the patient's lab results. Result diagrams: 11/01/18 12:28 11/01/18 12: Lab Results 11/01/18 11/01/18 11/01/18 Range/Units 12: 12: 12: WBC 47.0 H (4.0-11.0) th/mm3 RBC 2.84 L (4.00-5.30) mil/mm3 Hgb 8.2 L (11.6-15.3) gm/dL Hct 25.4 L (35.0-46.0) % MCV 89.4 (80.0-100.0) fL MCH 28.8 (27.0-34.0) pg MCHC 32.2 (32.0-36.0) % RDW 16.4 (11.6-17.2) % Plt Count 392 (150-450) th/mm3 MPV 7.7 (7.0-11.0) fL Prelim Diff (Auto) Slide review pending Neut % (Auto) 89.3 H (16.0-70.0) % Lymph % (Auto) 2.6 L (9.0-44.0) % Cuming % (Auto) 6.1 (0.0-8.0) % Eos % (Auto) 1.0 (0.0-4.0) % Baso % (Auto) 1.0 (0.0-2.0) % Neut # (Auto) 42.0 H (1.8-7.7) th/mm3 Lymph # (Auto) 1.2 (1.0-4.8) th/mm3 Cuming # (Auto) 2.9 H (0.0-0.9) th/mm3 Eos # (Auto) 0.5 H (0.0-0.4) th/mm3 Baso # (Auto) 0.5 H (0.0-0.2) th/mm3 Differential Comment . PT 11.1 (9.8-11.6) sec INR 1.1 Ratio Sodium 140 (136-145) meq/L Potassium 3.7 (3.5-5.1) meq/L Chloride 105 (98-107) meq/L Carbon Dioxide 25.2 (21.0-32.0) meq/L Anion Gap 10 (5-15) meq/L BUN 43 H (7-18) mg/dL Creatinine 3.25 H (0.50-1.00) mg/dL Estimated GFR 15 L (>89) mL/min Random Glucose 257 H (74-106) mg/dL Calcium 8.4 L (8.5-10.1) mg/dL Magnesium 1.7 (1.5-2.5) mg/dL Total Bilirubin 0.5 (0.2-1.0) mg/dL AST 10 L (15-37) U/L ALT 12 (10-53) U/L Alkaline Phosphatase 74 (45-117) U/L Total Creatine Kinase 97 (26-192) U/L Troponin I 0.24 H (0.02-0.05) ng/mL B-Natriuretic Peptide (0-100) pg/mL Total Protein 7.0 (6.4-8.2) g/dL Albumin 2.6 L (3.4-5.0) g/dL 11/01/18 Range/Units 12:28 WBC (4.0-11.0) th/mm3 RBC (4.00-5.30) mil/mm3 Hgb (11.6-15.3) gm/dL Hct (35.0-46.0) % MCV (80.0-100.0) fL MCH (27.0-34.0) pg MCHC (32.0-36.0) % RDW (11.6-17.2) % Plt Count (150-450) th/mm3 MPV (7.0-11.0) fL Prelim Diff (Auto) Neut % (Auto) (16.0-70.0) % Lymph % (Auto) (9.0-44.0) % Cuming % (Auto) (0.0-8.0) % Eos % (Auto) (0.0-4.0) % Baso % (Auto) (0.0-2.0) % Neut # (Auto) (1.8-7.7) th/mm3 Lymph # (Auto) (1.0-4.8) th/mm3 Cuming # (Auto) (0.0-0.9) th/mm3 Eos # (Auto) (0.0-0.4) th/mm3 Baso # (Auto) (0.0-0.2) th/mm3 Differential Comment PT (9.8-11.6) sec INR Ratio Sodium (136-145) meq/L Potassium (3.5-5.1) meq/L Chloride (98-107) meq/L Carbon Dioxide (21.0-32.0) meq/L Anion Gap (5-15) meq/L BUN (7-18) mg/dL Creatinine (0.50-1.00) mg/dL Estimated GFR (>89) mL/min Random Glucose (74-106) mg/dL Calcium (8.5-10.1) mg/dL Magnesium (1.5-2.5) mg/dL Total Bilirubin (0.2-1.0) mg/dL AST (15-37) U/L ALT (10-53) U/L Alkaline Phosphatase (45-117) U/L Total Creatine Kinase (26-192) U/L Troponin I (0.02-0.05) ng/mL B-Natriuretic Peptide 236 H (0-100) pg/mL Total Protein (6.4-8.2) g/dL Albumin (3.4-5.0) g/dL Imaging Data Attestation: I personally reviewed and interpreted this imaging study as follows : My impression: CXR- increased pulmonary vascular markings consistent with pulmonary edema Radiologist's impression: Chest X-Ray 11/01/18 12:20 CONCLUSION: 1. Bilateral pulmonary infiltrates are noted consistent with moderate pulmonary edema versus pneumonia. 2. Cardiomegaly. ECG Data Attestation: I personally reviewed and interpreted this ECG as follows: Interpretation: Rate: 75 BPM Rhythm: Sinus Chapin: Normal Intervals: Normal intervals, no blocks, QTc 443 ms Q waves: None T waves: Upright, no inversions ST segments: Minor depressions in V5-V6, <1 mm, no reciprocal elevations Impression: Subtle ST depressions in lateral leads which are new when compared to EKG from 09/27/2018. Discharge Plan Discharge Disposition Patient Disposition: ED Admit(ED Internal Use Only) Discharge Condition Condition: Stable Discharge Order Discharge Orders: ED Use Only Admit Order (Routine); Ordered 11/01/18 Ordered By: Lupe Hall Discharge Details Diagnosis: Pulmonary edema, Acute on chronic kidney failure, Elevated troponin, Dyspnea on exertion Physicians Team ED Provider: Lupe Hall Primary Care Provider: Stacy Fitzpatrick Attending Provider: Gissel Snyder Status ED Status: Admitted Patient
[2018-11-01 12:47] LABS: Baso # (Auto) 0.5 th/mm3 (0.0-0.2); Eos # (Auto) 0.5 th/mm3 (0.0-0.4); Hematocrit 25.4 % (35.0-46.0); Hemoglobin 8.2 gm/dL (11.6-15.3); Lymph # (Auto) 1.2 th/mm3 (1.0-4.8); Lymph % (Auto) 2.6 % (9.0-44.0); Mean Corpuscular HGB Conc 32.2 % (32.0-36.0); Mean Corpuscular Hemoglobin 28.8 pg (27.0-34.0); Mean Corpuscular Volume 89.4 fL (80.0-100.0); Mean Platelet Volume 7.7 fL (7.0-11.0); Mono # (Auto) 2.9 th/mm3 (0.0-0.9); Mono % (Auto) 6.1 % (0.0-8.0); Neut % (Auto) 89.3 % (16.0-70.0); Platelet Count 392 th/mm3 (150-450); Red Blood Count 2.84 mil/mm3 (4.00-5.30); Red Cell Distribution Width 16.4 % (11.6-17.2)
--- NOTE | 2018-11-01 12:57 | XR ---
EXAM DATE: 11/01/2018 12:44 PM EST AGE/SEX: 58 years / Female INDICATIONS: Chest pain and shortness of breath. CLINICAL DATA: This is the patient's initial encounter. Patient reports that signs and symptoms have been present for 2 days and indicates a pain score of 5/10. MEDICAL/SURGICAL HISTORY: Hypertension. Chronic kidney disease. Diabetes. Chronic kidney dis ease. None. COMPARISON: [facility], CHEST 2V PA&LAT, 09/27/2018. . FINDINGS: Bilateral pulmonary infiltrates are noted consistent with moderate pulmonary edema versus pneumonia. The heart is enlarged. CONCLUSION: 1. Bilateral pulmonary infiltrates are noted consistent with moderate pulmonary edema versus pneumon ia. 2. Cardiomegaly. Electronically signed by: Melchor Velazquez MD Board Certified Radiologist 11/01/2018 12:56 PM EST
[2018-11-01 13:01] LABS: Alanine Aminotransferase 12 U/L (10-53); Albumin 2.6 g/dL (3.4-5.0); Anion Gap 10 meq/L (5-15); Aspartate Aminotransferase 10 U/L (15-37); Blood Urea Nitrogen 43 mg/dL (7-18); Calcium 8.4 mg/dL (8.5-10.1); Carbon Dioxide 25.2 meq/L (21.0-32.0); Chloride 105 meq/L (98-107); Glomerular Filtration Rate 15 mL/min (>89); Glucose,Random 257 mg/dL (74-106); Magnesium 1.7 mg/dL (1.5-2.5); Potassium 3.7 meq/L (3.5-5.1); Sodium 140 meq/L (136-145)
[2018-11-01 13:02] LABS: INR 1.1 Ratio; Prothrombin Time 11.1 sec (9.8-11.6)
[2018-11-01 13:05] LABS: Alkaline Phosphatase 74 U/L (45-117); Troponin I 0.24 ng/mL (0.02-0.05)
[2018-11-01 13:08] LABS: Creatine Kinase 97 U/L (26-192)
[2018-11-01] MEDS ORDERED: Magnesium Sulfate Inj 2 GM in Sodium Chlor 0.9% Inj 96 ML IV.SIG ONE (13:08)
[2018-11-01 13:41] LABS: Eosinophils 1 % (0-4); Metamyelocytes 10 % (0-1); Monocytes 7 % (0-8); Myelocytes 3 % (0-0); Platelet Estimate Normal (Normal); Platelet Morphology Normal (Normal); Tallied Nucleated RBC 1 (0-0)
--- NOTE | 2018-11-01 13:46 | P.HPFP ---
History of Present Illness Primary Care Physician: Stacy Fitzpatrick MD <Gissel Snyder M - 11/02/18 09:15> Stacy Fitzpatrick MD <Dangelo Apolonia Claytonroger Moreau - 11/01/18 13:46> Chief Complaint: SOB <Shawnnayla ClaytonCarter - 11/01/18 13:46> History of Present Illness: She is a 58 year-old female with past medical history significant for CHF and end-stage renal disease who presents today after 3 days of feeling weak. She states for the past couple of weeks she has had difficulty breathing even with minimal exertion. She states she does not lay down, so she is not sure if she would have shortness of breath while lying down, she does sleep with two pillows at night. . She reports cough and some chest congestion. She denies chest pain, palpitations, and increased swelling in her legs. She has end-stage renal disease and is followed by Dr. Mendes. She has an AV fistula that was placed in September in anticipation of needing hemodialysis, however has not required dialysis yet. She noticed that she has been urinating less for the last couple of days. She takes 20 mg of Lasix daily. She also reports nausea without vomiting or abdominal pain. She has had a couple loose stools today, but otherwise bowel movements have been normal. She has a history of elevated WBCs, including metamyelocytes in the past. She is seeing a maori liaison adviser as an outpatient, but does not remember who. They had planned on a biopsy (likely of the bone marrow), but she could not have it done due to her aspirin. In the ED she received aspirin, 60 mg of IV Lasix, 2 g of magnesium, topical and sublingual nitroglycerin, and 40 mg of potassium. She reported improvement in her shortness of breath with the nitroglycerin. Medical History: Her primary care doctor is Stacy Fitzpatrick Diabetes: On insulin CHF: Diagnosed September 2017, does not have a patrol conductor. last echo was here, may have been 60% EF Hypertension ESRD: Follows with Dr. Mendes COPD Lymphedema Surgical: AV fistula in September Family: Multiple relatives with high blood pressure. Her mom is alive at 92. Her dad related to COPD. She has a 35-year-old son who is healthy. Social: Lives with a roommate who is with her today She walks with a 4 wheeled walker and does need help doing some things around the house Former smoker, no alcohol or other drug abuse <Carter Doty 11/01/18 20:49> - Diagnosis (1) Leukocytosis (2) Congestive heart failure (3) ESRD (end stage renal disease) (4) Diabetes (5) Acute on chronic kidney failure (6) Elevated troponin (7) Hypertensive emergency <Gissel Snyder 11/02/18 09:15> (1) Leukocytosis (2) Congestive heart failure (3) ESRD (end stage renal disease) (4) Diabetes (5) Acute on chronic kidney failure (6) Elevated troponin (7) Hypertensive emergency <Akashselina Carter Clayton 11/01/18 23:23> Inpatient Certification: I certify that the inpatient services were ordered in accordance with Medicare regulations governing the order. This includes certification that hospital inpatient services are reasonable and necessary and in the case of services not specified as inpatient-only under 42 CFR 419.22(n), that they are appropriately provided as inpatient services in accordance to with the 2-midnight benchmark under 43 CFR 412.3(e) <Gissel Snyder 11/02/18 09:15> I certify that the inpatient services were ordered in accordance with Medicare regulations governing the order. This includes certification that hospital inpatient services are reasonable and necessary and in the case of services not specified as inpatient-only under 42 CFR 419.22(n), that they are appropriately provided as inpatient services in accordance to with the 2-midnight benchmark under 43 CFR 412.3(e) <Akashselina Carter Clayton 11/01/18 17:06> Review of Systems Constitutional: Denies chills, Denies fever(s) <Shawnnayla MatildeCarter Prieto 14:52> Eyes: Denies change in vision <Shawnnayla MatildeCarter Prieto 11/01/18 14:52> Ears, Nose, Mouth, and Throat: Denies abnormal hearing <Shawnnayla MatildeCarter Prieto 11/01/18 14:52> Cardiovascular: Denies chest pain, Denies rapid, pounding, or irregular heartbeat <ShawnCarter Kunz 11/01/18 14:52> Respiratory: Reports cough, Reports shortness of breath <Carter Doty 11/01/18 14:52> Gastrointestinal: Reports nausea, Denies abdominal pain, Denies change in bowel habits, Denies vomiting <Carter Doty 11/01/18 14:52> PMFSH - History History Provided By: Patient <Carter Doty 11/01/18 13:46> - Medical History Medical History: Medical History (Last Reviewed 11/01/18 @ 12:42 by Lupe Hall DO) AV fistula Anxiety Arthritis Bilateral knee pain COPD (chronic obstructive pulmonary disease) Chronic shoulder pain Congestive heart failure (CHF) Edema extremities End stage kidney disease Hyperlipidemia Hypertension Neuropathy Shortness of breath Wears dentures Wears glasses <Gissel Snyder 11/02/18 09:15> Medical History (Last Reviewed 11/01/18 @ 12:42 by Lupe Hall DO) AV fistula Anxiety Arthritis Bilateral knee pain COPD (chronic obstructive pulmonary disease) Chronic shoulder pain Congestive heart failure (CHF) Edema extremities End stage kidney disease Hyperlipidemia Hypertension Neuropathy Shortness of breath Wears dentures Wears glasses <Carter Doty 11/01/18 13:46> - Surgical History Surgical History: Surgical History (Last Reviewed 11/01/18 @ 12:42 by Lupe Hall DO) Hx of section <Gissel Snyder 11/02/18 09:15> Surgical History (Last Reviewed 11/01/18 @ 12:42 by Lupe Hall DO) Hx of section <Carter Doty 11/01/18 13:46> - Tobacco History Second Hand Smoke Exposure: No <Carter Doty 11/01/18 13:46> Smoking Status: Former smoker <Carter Doty 11/01/18 13:46> - Alcohol History How Often Do You Have a Drink Containing Alcohol: Monthly or less <Carter Doty 11/01/18 13:46> - Substance Use History Substance History: No History of Abuse <Carter Doty 11/01/18 13: 46> - Travel History Recent Travel in the [place] Within the Last 8 Weeks: No <Carter Doty - 11/01/18 13:46> Recent Travel Out of the Country Within the Last 8 Weeks: No <Carter Doty - 11/01/18 13:46> - Immunization History Tetanus Immunization: Unsure <Carter Doty - 11/01/18 13:46> Medications and Allergies Allergies Allergy/AdvReac Type Severity Reaction Status Date / Time No Known Allergies Allergy Verified 11/01/18 12:05 <Gissel Snyder - 11/02/18 09:15> Home Medications Medication Instructions Recorded Confirmed Type amlodipine 10 mg PO DAILY 09/27/18 11/01/18 History atorvastatin 40 mg PO QPM 09/27/18 11/01/18 History carvedilol 25 mg PO BID 09/27/18 11/01/18 History citalopram 20 mg PO DAILY 09/27/18 11/01/18 History clonidine HCl 0.2 mg PO BID 09/27/18 11/01/18 History diphenhydramine HCl 25 mg PO HS 09/27/18 11/01/18 History furosemide 20 mg PO BID 09/27/18 11/01/18 History hydralazine 100 mg PO TID 09/27/18 11/01/18 History insulin asp prt-insulin aspart 54 unit SUBCUT QAM 09/27/18 11/01/18 History [Novolog Mix 70-30 U-100 Insuln] insulin asp prt-insulin aspart 58 unit SUBCUT QPM 09/27/18 11/01/18 History [Novolog Mix 70-30 U-100 Insuln] insulin regular human [Novolin R 1 sliding scale dose SUBCUT UD 09/27/18 History Regular U-100 Insuln] oxymetazoline [Afrin 2 spray INTRANASAL Q12H 09/27/18 11/01/18 History (oxymetazoline)] umeclidinium-vilanterol 1 inh INHALATION Q24H 09/27/18 11/01/18 History ranitidine HCl [Zantac] 150 mg PO DAILY 09/28/18 11/01/18 History gabapentin 200 mg PO DAILY 11/01/18 11/01/18 History prednisone 1 mg PO DAILY 11/01/18 11/01/18 History <Gissel Snyder M - 11/02/18 09:15> Active Medications: Active Medications Acetaminophen (Tylenol) 650 mg PO Q4H PRN PRN Reason: Temp > 100.4 Last Admin: 11/01/18 17:59 Dose: 650 mg Al Hydroxide/Mg Hydroxide (Milk Of Magnangie Liq) 30 ml PO Q12H PRN PRN Reason: Mild Constipation Amlodipine Besylate (Norvasc) 10 mg PO DAILY [facility] Last Admin: 11/02/18 08:38 Dose: 10 mg Atorvastatin Calcium (Lipitor) 40 mg PO QPM [facility] Last Admin: 11/01/18 19:37 Dose: 40 mg Bumetanide (Bumex Inj) 2 mg IV.PUSH BID@0900,1800 [facility] Last Admin: 11/02/18 08:39 Dose: 2 mg Carvedilol (Coreg) 25 mg PO BID [facility] Last Admin: 11/02/18 08:38 Dose: 25 mg Chlorhexidine Gluconate (Chlorhexidine 2% Cloth) 3 pack TOPICAL DAILY@0400 LAXMI Stop: 11/08/18 03:59 Chlorhexidine Gluconate (Chlorhexidine 2% Cloth) 3 pack TOPICAL DAILY@0400 PRN PRN Reason: Extra cloth needed Stop: 11/08/18 03:59 Citalopram Hydrobromide (Celexa) 20 mg PO DAILY [facility] Last Admin: 11/02/18 08:38 Dose: 20 mg Clonidine HCl (Catapres) 0.2 mg PO BID [facility] Last Admin: 11/02/18 08:38 Dose: 0.2 mg Clonidine HCl (Catapres) 0.1 mg PO Q1H PRN PRN Reason: HYPERTENSION Last Admin: 11/01/18 21:10 Dose: 0.1 mg Diphenhydramine HCl (Benadryl) 25 mg PO HS [facility] Last Admin: 11/01/18 22:52 Dose: 25 mg Famotidine (Pepcid) 10 mg PO BID [facility] Last Admin: 11/02/18 08:37 Dose: 10 mg Furosemide (Lasix Inj) 20 mg IV.PUSH ONCE ONE Stop: 11/02/18 09:26 Gabapentin (Neurontin) 200 mg PO [facility] Last Admin: 11/01/18 22:50 Dose: 200 mg Heparin Sodium (Porcine) (Heparin Inj) 5,000 units SQ Q8H [facility] Last Admin: 11/02/18 08:39 Dose: 5,000 units Hydralazine HCl (Apresoline) 100 mg PO TID [facility] Last Admin: 11/02/18 08:38 Dose: 100 mg Hydralazine HCl (Apresoline Inj) 10 mg IV.PUSH Q30M PRN PRN Reason: SEE DOSE INSTRUCTIONS Sodium Chloride (Ns Inj) 250 mls @ 15 mls/hr IV.SIG ONCE LAXMI Stop: 11/03/18 01:39 Insulin Aspart (Novolog Insulin Correctional Sugar Inj) 0 unit SQ ACHS AND 3AM LAXMI; Protocol Last Admin: 11/02/18 08:39 Dose: 5 unit Insulin Detemir (Levemir Inj) 20 unit SQ BID [facility] Last Admin: 11/02/18 08:39 Dose: 20 unit Ondansetron HCl (Zofran Inj) 4 mg IV.PUSH Q6H PRN PRN Reason: NAUSEA OR VOMITING Prednisone (Deltasone) 1 mg PO DAILY [facility] Last Admin: 11/02/18 08:39 Dose: 1 mg Senna/Docusate Sodium (Molly-Colace) 1 tab PO BID [facility] Last Admin: 11/02/18 08:38 Dose: 1 tab Sennosides (Senokot) 17.2 mg PO Q12H PRN PRN Reason: Moderate Constipation Sodium Chloride (Ns Flush) 2 ml IV.FLUSH BID [facility] Last Admin: 11/02/18 08:40 Dose: 2 ml Sodium Chloride (Ns Flush) 2 ml IV.FLUSH PRN PRN PRN Reason: FLUSH AFTER USING IV ACCESS Umeclidinium/Vilanterol (Anoro-Ellipta 62.5/25 Mcg Inh) 1 inhalation INH Q24H [facility] Last Admin: 11/01/18 23:13 Dose: Not Given <Gissel Snyder - 11/02/18 09:15> Active Medications Magnesium Sulfate 2 gm/ Sodium (Chloride) 100 mls @ 50 mls/hr IV.SIG ONCE ONE Stop: 11/01/18 15:07 Sodium Chloride (Ns Flush) 2 ml IV.FLUSH UNSCH PRN PRN Reason: FLUSH AFTER USING IV ACCESS Last Admin: 11/01/18 12:38 Dose: 2 ml <Dangelo ClaytonCarter Moreau - 11/01/18 13:46> Exam Vital signs: Vital Signs 11/01/18 12:05 11/01/18 12:20 11/01/18 15:07 Temperature 97.9 F Pulse Rate 82 68 Respiratory Rate 22 22 Blood Pressure 218/86 H Pulse Oximetry 93 L 95 93 L 11/01/18 15:10 11/01/18 15:11 11/01/18 16:00 Temperature 98.3 F Pulse Rate 79 Respiratory Rate 18 Blood Pressure 186/77 H 199/81 H Pulse Oximetry 94 L 94 L 11/01/18 20:21 11/01/18 21:30 11/01/18 22:02 Temperature 98.2 F 98.8 F Pulse Rate 70 102 H 66 Respiratory Rate 18 16 18 Blood Pressure 184/77 H 166/97 H 158/67 H Pulse Oximetry 95 97 11/02/18 02:04 11/02/18 05:52 11/02/18 06:34 Temperature Pulse Rate 68 64 68 Respiratory Rate 14 31 H Blood Pressure 135/63 157/70 H Pulse Oximetry 95 95 88 L 11/02/18 06:41 11/02/18 07:00 11/02/18 07:01 Temperature Pulse Rate 63 68 73 Respiratory Rate 21 49 H Blood Pressure 193/76 H Pulse Oximetry 92 L 93 L 11/02/18 07:40 Temperature Pulse Rate 66 Respiratory Rate Blood Pressure Pulse Oximetry Intake & Output 11/01/18 11/02/18 11/02/18 18:59 06:59 18:59 Intake Total 0 / 0 100 / 100 Output Total 250 / 250 Balance -250 / -250 100 / 100 Weight 136.078 kg 134.2 kg Intake: IV 100 / 100 Oral 0 / 0 Output: Urine 250 / 250 Other: Weight On Admission 134.7 kg <Gissel Snyder - 11/02/18 09:15> Vital Signs 11/01/18 12:05 11/01/18 12:20 Temperature 97.9 F Pulse Rate 82 Respiratory Rate 22 Blood Pressure 218/86 H Pulse Oximetry 93 L 95 Intake & Output 10/31/18 11/01/18 11/01/18 18:59 06:59 18:59 Weight 136.078 kg <Carter Doty - 11/01/18 13:46> Narrative: General: Obese female, on 4.5 L via nasal cannula, no acute distress Eyes: EOMI, anicteric scleral, no conjunctival injection ENT: Atraumatic, MMM Neck: Trachea midline Respiratory: Normal respiratory effort, some rales at the bases, good air movement Cardiovascular: Regular rate and rhythm with soft systolic murmur, 1+ pitting peripheral edema Abdomen: Bowel sounds present. Soft, non-tender. No masses noted. Psychiatric: Alert and oriented. Normal affect. Skin: Areas of chronic excoriation on the bilateral arms with some areas of hypopigmentation <Carter Doty - 11/01/18 20:49> Results - Labs Result diagrams: 11/02/18 03:26 11/02/18 03:26 <Gissel Snyder - 11/02/18 09:15> Abnormal lab results 11/01/18 11/01/18 11/01/18 Range/Units 12:28 12:28 12:28 WBC 47.0 H (4.0-11.0) th/mm3 RBC 2.84 L (4.00-5.30) mil/mm3 Hgb 8.2 L (11.6-15.3) gm/dL Hct 25.4 L (35.0-46.0) % MCHC (32.0-36.0) % Neut % (Auto) 89.3 H (16.0-70.0) % Lymph % (Auto) 2.6 L (9.0-44.0) % Neut # (Auto) 42.0 H (1.8-7.7) th/mm3 [place] # (Auto) 2.9 H (0.0-0.9) th/mm3 Eos # (Auto) 0.5 H (0.0-0.4) th/mm3 Baso # (Auto) 0.5 H (0.0-0.2) th/mm3 Band Neuts % (Manual) 12 H (0-6) % Lymphocytes % (Manual) (9-44) % Metamyelocytes % (Man) 10 H (0-1) % Myelocytes % (Man) 3 H (0-0) % Promyelocytes % (Man) (0-0) % Abs Neuts (Manual) 42.8 H (1.8-7.7) th/mm3 Nucleated RBCs/100 WBC 1 H (0-0) /100 WBC Polychromasia (0.0-1.9) % Keratocytes (None) BUN 43 H (7-18) mg/dL Creatinine 3.25 H (0.50-1.00) mg/dL Estimated GFR 15 L (>89) mL/min POC Glucose (68-110) mg/dl Random Glucose 257 H (74-106) mg/dL Calcium 8.4 L (8.5-10.1) mg/dL AST 10 L (15-37) U/L Troponin I 0.24 H (0.02-0.05) ng/mL B-Natriuretic Peptide 236 H (0-100) pg/mL Total Protein (PEP) (6.4-8.2) gm/dL Albumin 2.6 L (3.4-5.0) g/dL Urine Clarity (Clear) Urine Protein (Neg-Trace) mg/dL Urine Bacteria (None) /hpf Urine Mucus (Occasional) /lpf 11/01/18 11/01/18 11/01/18 Range/Units 14:55 20:15 20:45 WBC (4.0-11.0) th/mm3 RBC (4.00-5.30) mil/mm3 Hgb (11.6-15.3) gm/dL Hct (35.0-46.0) % MCHC (32.0-36.0) % Neut % (Auto) (16.0-70.0) % Lymph % (Auto) (9.0-44.0) % Neut # (Auto) (1.8-7.7) th/mm3 [place] # (Auto) (0.0-0.9) th/mm3 Eos # (Auto) (0.0-0.4) th/mm3 Baso # (Auto) (0.0-0.2) th/mm3 Band Neuts % (Manual) (0-6) % Lymphocytes % (Manual) (9-44) % Metamyelocytes % (Man) (0-1) % Myelocytes % (Man) (0-0) % Promyelocytes % (Man) (0-0) % Abs Neuts (Manual) (1.8-7.7) th/mm3 Nucleated RBCs/100 WBC (0-0) /100 WBC Polychromasia (0.0-1.9) % Keratocytes (None) BUN (7-18) mg/dL Creatinine (0.50-1.00) mg/dL Estimated GFR (>89) mL/min POC Glucose 272 H (68-110) mg/dl Random Glucose (74-106) mg/dL Calcium (8.5-10.1) mg/dL AST (15-37) U/L Troponin I 0.28 H (0.02-0.05) ng/mL B-Natriuretic Peptide (0-100) pg/mL Total Protein (PEP) (6.4-8.2) gm/dL Albumin (3.4-5.0) g/dL Urine Clarity Hazy H (Clear) Urine Protein 100 H (Neg-Trace) mg/dL Urine Bacteria Rare H (None) /hpf Urine Mucus Few H (Occasional) /lpf 11/01/18 11/02/18 11/02/18 Range/Units 23:59 00:50 03:26 WBC 42.4 H (4.0-11.0) th/mm3 RBC 2.54 L (4.00-5.30) mil/mm3 Hgb 7.7 L 7.4 L (11.6-15.3) gm/dL Hct 23.7 L 23.4 L (35.0-46.0) % MCHC 31.6 L (32.0-36.0) % Neut % (Auto) (16.0-70.0) % Lymph % (Auto) (9.0-44.0) % Neut # (Auto) (1.8-7.7) th/mm3 [place] # (Auto) (0.0-0.9) th/mm3 Eos # (Auto) (0.0-0.4) th/mm3 Baso # (Auto) (0.0-0.2) th/mm3 Band Neuts % (Manual) 14 H (0-6) % Lymphocytes % (Manual) 6 L (9-44) % Metamyelocytes % (Man) 4 H (0-1) % Myelocytes % (Man) 7 H (0-0) % Promyelocytes % (Man) 4 H (0-0) % Abs Neuts (Manual) 37.7 H (1.8-7.7) th/mm3 Nucleated RBCs/100 WBC 1 H (0-0) /100 WBC Polychromasia 2.2 H (0.0-1.9) % Keratocytes Occ H (None) BUN (7-18) mg/dL Creatinine (0.50-1.00) mg/dL Estimated GFR (>89) mL/min POC Glucose (68-110) mg/dl Random Glucose (74-106) mg/dL Calcium (8.5-10.1) mg/dL AST (15-37) U/L Troponin I 0.32 H (0.02-0.05) ng/mL B-Natriuretic Peptide (0-100) pg/mL Total Protein (PEP) (6.4-8.2) gm/dL Albumin (3.4-5.0) g/dL Urine Clarity (Clear) Urine Protein (Neg-Trace) mg/dL Urine Bacteria (None) /hpf Urine Mucus (Occasional) /lpf 11/02/18 11/02/18 11/02/18 Range/Units 03:26 03:26 08:01 WBC (4.0-11.0) th/mm3 RBC (4.00-5.30) mil/mm3 Hgb (11.6-15.3) gm/dL Hct (35.0-46.0) % MCHC (32.0-36.0) % Neut % (Auto) (16.0-70.0) % Lymph % (Auto) (9.0-44.0) % Neut # (Auto) (1.8-7.7) th/mm3 [place] # (Auto) (0.0-0.9) th/mm3 Eos # (Auto) (0.0-0.4) th/mm3 Baso # (Auto) (0.0-0.2) th/mm3 Band Neuts % (Manual) (0-6) % Lymphocytes % (Manual) (9-44) % Metamyelocytes % (Man) (0-1) % Myelocytes % (Man) (0-0) % Promyelocytes % (Man) (0-0) % Abs Neuts (Manual) (1.8-7.7) th/mm3 Nucleated RBCs/100 WBC (0-0) /100 WBC Polychromasia (0.0-1.9) % Keratocytes (None) BUN 46 H (7-18) mg/dL Creatinine 3.31 H (0.50-1.00) mg/dL Estimated GFR 14 L (>89) mL/min POC Glucose 214 H (68-110) mg/dl Random Glucose 179 H (74-106) mg/dL Calcium 8.4 L (8.5-10.1) mg/dL AST 10 L (15-37) U/L Troponin I (0.02-0.05) ng/mL B-Natriuretic Peptide (0-100) pg/mL Total Protein (PEP) 5.9 L (6.4-8.2) gm/dL Albumin 2.4 L (3.4-5.0) g/dL Urine Clarity (Clear) Urine Protein (Neg-Trace) mg/dL Urine Bacteria (None) /hpf Urine Mucus (Occasional) /lpf Short CBC 11/01/18 11/01/18 11/02/18 Range/Units 12:28 23:59 03:26 WBC 47.0 H 42.4 H (4.0-11.0) th/mm3 Hgb 8.2 L 7.7 L 7.4 L (11.6-15.3) gm/dL Hct 25.4 L 23.7 L 23.4 L (35.0-46.0) % Plt Count 392 355 (150-450) th/mm3 BMP 11/01/18 11/02/18 12:28 03:26 Sodium 140 141 Potassium 3.7 3.7 Chloride 105 106 Carbon Dioxide 25.2 26.9 BUN 43 H 46 H Creatinine 3.25 H 3.31 H Calcium 8.4 L 8.4 L Cardiac Enzymes 11/01/18 11/01/18 11/02/18 Range/Units 12:28 20:45 00:50 Total Creatine Kinase 97 108 110 (26-192) U/L CK-MB (CK-2) Less than 1.0 1.2 (0.5-3.6) ng/mL Troponin I 0.24 H 0.28 H 0.32 H (0.02-0.05) ng/mL Liver Function 11/01/18 11/02/18 Range/Units 12:28 03:26 Total Bilirubin 0.5 0.3 (0.2-1.0) mg/dL AST 10 L 10 L (15-37) U/L ALT 12 13 (10-53) U/L Alkaline Phosphatase 74 66 (45-117) U/L Albumin 2.6 L 2.4 L (3.4-5.0) g/dL Urine 11/01/18 Range/Units 14:55 Urine Color Yellow (Yellw/Straw) Urine Clarity Hazy H (Clear) Urine pH 5.0 (5.0-8.5) Ur Specific [place] 1.011 (1.002-1.035) Urine Protein 100 H (Neg-Trace) mg/dL Urine Glucose (UA) 50 (Negative) mg/dL <Gissel Snyder - 11/02/18 09:15> Abnormal lab results 11/01/18 11/01/18 11/01/18 Range/Units 12:28 12:28 12:28 WBC 47.0 H (4.0-11.0) th/mm3 RBC 2.84 L (4.00-5.30) mil/mm3 Hgb 8.2 L (11.6-15.3) gm/dL Hct 25.4 L (35.0-46.0) % Neut % (Auto) 89.3 H (16.0-70.0) % Lymph % (Auto) 2.6 L (9.0-44.0) % Neut # (Auto) 42.0 H (1.8-7.7) th/mm3 [place] # (Auto) 2.9 H (0.0-0.9) th/mm3 Eos # (Auto) 0.5 H (0.0-0.4) th/mm3 Baso # (Auto) 0.5 H (0.0-0.2) th/mm3 Band Neuts % (Manual) 12 H (0-6) % Metamyelocytes % (Man) 10 H (0-1) % Myelocytes % (Man) 3 H (0-0) % Abs Neuts (Manual) 42.8 H (1.8-7.7) th/mm3 Nucleated RBCs/100 WBC 1 H (0-0) /100 WBC BUN 43 H (7-18) mg/dL Creatinine 3.25 H (0.50-1.00) mg/dL Estimated GFR 15 L (>89) mL/min Random Glucose 257 H (74-106) mg/dL Calcium 8.4 L (8.5-10.1) mg/dL AST 10 L (15-37) U/L Troponin I 0.24 H (0.02-0.05) ng/mL B-Natriuretic Peptide 236 H (0-100) pg/mL Albumin 2.6 L (3.4-5.0) g/dL Short CBC 11/01/18 Range/Units 12:28 WBC 47.0 H (4.0-11.0) th/mm3 Hgb 8.2 L (11.6-15.3) gm/dL Hct 25.4 L (35.0-46.0) % Plt Count 392 (150-450) th/mm3 BMP 11/01/18 12:28 Sodium 140 Potassium 3.7 Chloride 105 Carbon Dioxide 25.2 BUN 43 H Creatinine 3.25 H Calcium 8.4 L Cardiac Enzymes 11/01/18 Range/Units 12:28 Total Creatine Kinase 97 (26-192) U/L Troponin I 0.24 H (0.02-0.05) ng/mL Liver Function 11/01/18 Range/Units 12:28 Total Bilirubin 0.5 (0.2-1.0) mg/dL AST 10 L (15-37) U/L ALT 12 (10-53) U/L Alkaline Phosphatase 74 (45-117) U/L Albumin 2.6 L (3.4-5.0) g/dL <Carter Doty - 11/01/18 13:46> - Imaging Impressions Chest X-Ray 11/01/18 12:20 CONCLUSION: 1. Bilateral pulmonary infiltrates are noted consistent with moderate pulmonary edema versus pneumonia. 2. Cardiomegaly. <Gissel Snyder - 11/02/18 09:15> Impressions Chest X-Ray 11/01/18 12:20 CONCLUSION: 1. Bilateral pulmonary infiltrates are noted consistent with moderate pulmonary edema versus pneumonia. 2. Cardiomegaly. <Carter Doty - 11/01/18 13:46> Caprini VTE Risk Assessment Caprini VTE Risk Assessment: Moderate/High Risk (score >= 2) <Carter Doty - 11/01/18 14:52> Caprini Risk Assessment Model: Point Value = 1 Point Value = 2 Point Value = 3 Point Value = 5 Age 41-60 Minor surgery BMI > 25 kg/m2 Swollen legs Varicose veins or History of unexplained or recurrent spontaneous Oral contraceptives or hormone replacement Sepsis (< 1 month) Serious lung disease, including pneumonia (< 1 month) Abnormal pulmonary function Acute myocardial infarction Congestive heart failure (< 1 month) History of inflammatory bowel disease Medical patient at bed rest Age 61-74 Arthroscopic surgery Major open surgery (> 45 min) Laparoscopic surgery (> 45 min) Malignancy Confined to bed (> 72 hours) Immobilizing plaster cast Central venous access Age >= 75 History of VTE Family history of VTE Factor V Leiden Prothrombin [id number] Lupus anticoagulant Anticardiolipin antibodies Elevated serum homocysteine Heparin-induced thrombocytopenia Other congenital or acquired thrombophilia Stroke (< 1 month) Elective arthroplasty Hip, pelvis, or leg fracture Acute spinal cord injury (< 1 month) <Gissel Snyder - 11/02/18 09:15> Point Value = 1 Point Value = 2 Point Value = 3 Point Value = 5 Age 41-60 Minor surgery BMI > 25 kg/m2 Swollen legs Varicose veins or History of unexplained or recurrent spontaneous Oral contraceptives or hormone replacement Sepsis (< 1 month) Serious lung disease, including pneumonia (< 1 month) Abnormal pulmonary function Acute myocardial infarction Congestive heart failure (< 1 month) History of inflammatory bowel disease Medical patient at bed rest Age 61-74 Arthroscopic surgery Major open surgery (> 45 min) Laparoscopic surgery (> 45 min) Malignancy Confined to bed (> 72 hours) Immobilizing plaster cast Central venous access Age >= 75 History of VTE Family history of VTE Factor V Leiden Prothrombin [id number] Lupus anticoagulant Anticardiolipin antibodies Elevated serum homocysteine Heparin-induced thrombocytopenia Other congenital or acquired thrombophilia Stroke (< 1 month) Elective arthroplasty Hip, pelvis, or leg fracture Acute spinal cord injury (< 1 month) <Carter Doty - 11/01/18 13:46> Prophylaxis Regimen: Total Risk Factor Score Risk Level Prophylaxis Regimen 0-1 Low Early ambulation 2 Moderate Order ONE of the following: *Sequential Compression Device (SCD) *Heparin 5000 units SQ BID 3-4 Higher Order ONE of the following medications: *Heparin 5000 units SQ TID *Enoxaparin/Lovenox 40 mg SQ daily (WT < 150 kg, CrCl > 30 mL/min) *Enoxaparin/Lovenox 30 mg SQ daily (WT < 150 kg, CrCl > 10-29 mL/min) *Enoxaparin/Lovenox 30 mg SQ BID (WT < 150 kg, CrCl > 30 mL/min) AND/OR *Sequential Compression Device (SCD) 5 or more Highest Order ONE of the following medications: *Heparin 5000 units SQ TID (Preferred with Epidurals) *Enoxaparin/Lovenox 40 mg SQ daily (WT < 150 kg, CrCl > 30 mL/min) *Enoxaparin/Lovenox 30 mg SQ daily (WT < 150 kg, CrCl > 10-29 mL/min) *Enoxaparin/Lovenox 30 mg SQ BID (WT < 150 kg, CrCl > 30 mL/min) AND *Sequential Compression Device (SCD) <Gissel Snyder - 11/02/18 09:15> Total Risk Factor Score Risk Level Prophylaxis Regimen 0-1 Low Early ambulation 2 Moderate Order ONE of the following: *Sequential Compression Device (SCD) *Heparin 5000 units SQ BID 3-4 Higher Order ONE of the following medications: *Heparin 5000 units SQ TID *Enoxaparin/Lovenox 40 mg SQ daily (WT < 150 kg, CrCl > 30 mL/min) *Enoxaparin/Lovenox 30 mg SQ daily (WT < 150 kg, CrCl > 10-29 mL/min) *Enoxaparin/Lovenox 30 mg SQ BID (WT < 150 kg, CrCl > 30 mL/min) AND/OR *Sequential Compression Device (SCD) 5 or more Highest Order ONE of the following medications: *Heparin 5000 units SQ TID (Preferred with Epidurals) *Enoxaparin/Lovenox 40 mg SQ daily (WT < 150 kg, CrCl > 30 mL/min) *Enoxaparin/Lovenox 30 mg SQ daily (WT < 150 kg, CrCl > 10-29 mL/min) *Enoxaparin/Lovenox 30 mg SQ BID (WT < 150 kg, CrCl > 30 mL/min) AND *Sequential Compression Device (SCD) <Carter Doty - 11/01/18 13:46> Assessment and Plan - Assessment (1) Leukocytosis Code(s): D72.829 - Elevated white blood cell count, unspecified Status: Acute (2) Congestive heart failure Code(s): I50.9 - Heart failure, unspecified Status: Acute (3) ESRD (end stage renal disease) Code(s): N18.6 - End stage renal disease Status: Acute (4) Diabetes Code(s): E11.9 - Type 2 diabetes mellitus without complications Status: Acute (5) Acute on chronic kidney failure Code(s): N17.9 - Acute kidney failure, unspecified; N18.9 - Chronic kidney disease, unspecified Status: Acute (6) Elevated troponin Code(s): R74.8 - Abnormal levels of other serum enzymes Status: Acute (7) Hypertensive emergency Code(s): I16.1 - Hypertensive emergency Status: Acute <Gissel Snyder Julia - 11/02/18 09:15> (1) Leukocytosis Code(s): D72.829 - Elevated white blood cell count, unspecified Status: Acute (2) Congestive heart failure Code(s): I50.9 - Heart failure, unspecified Status: Acute (3) ESRD (end stage renal disease) Code(s): N18.6 - End stage renal disease Status: Acute (4) Diabetes Code(s): E11.9 - Type 2 diabetes mellitus without complications Status: Acute (5) Acute on chronic kidney failure Code(s): N17.9 - Acute kidney failure, unspecified; N18.9 - Chronic kidney disease, unspecified Status: Acute (6) Elevated troponin Code(s): R74.8 - Abnormal levels of other serum enzymes Status: Acute (7) Hypertensive emergency Code(s): I16.1 - Hypertensive emergency Status: Acute <Dangelo Carter Clayton - 11/01/18 23:23> - Assessment and Plan She is a 58-year-old female with a past medical history significant for CHF and ESRD who presented with shortness of breath on minimal exertion. Renal: History of ESRD. She had a mild creatinine bump from 2.78 on 09/27 to 3.25 today. In addition she reported decreased urine output. -Dr. Mendes is her screed operator, we have consulted him and would appreciate recommendations -60 mg IV Lasix given in the ED, will continue 40mg IV BID for now (she is on 20mg PO QD at home) -If renal function worsens and BP and pulmonary status are stable will decrease Lasix dosage Cardiovascular: On admission her blood pressure was 218/86. This qualifies as hypertensive emergency due to her new onset dyspnea and troponin elevation (0.24). She also reports a history of CHF her EF was 60-65% on 09/27/17 so she may have diastolic dysfunction. We have no record of this in the chart though. Her symptoms may also be related to fluid overload from her ESRD. EKG showed a mild ST depression in V5 and V6. -Clonidine as needed for BP > 180/110 -60 mg IV Lasix given in the ED, will continue 40mg IV BID for now Trend troponins and EKGs -Continue home HTN meds (amlodipine, carvedilol, clonidine, Lasix, hydralazine) -Will consider repeat Echo / cardio consult if no improvement -Continue home medication Lipitor Respiratory: She had O2 sats in the mid 80's on RA on arrival. It improved to mid 90's with 4.5 L via NC. This may be related to hypertensive emergency or fluid overload from her ESRD. Treatment as above. At home she is on Anoro-Ellipta for her COPD. We will continue this if able to get it in the hospital, otherwise will substitute with a different inhaler/ nebulizer Endocrine: History of diabetes treated with 70/30 at home (112 units daily + SSI ) -Levemir 20 units twice daily ACHS & 3AM medium dose sliding scale insulin, will consider adjusting to high dose if needed Continue home medication gabapentin for neuropathy 200 mg p.o. at bedtime Neurologic/psychiatric: Continue home medications Celexa 20 mg p.o. daily Continue home medication Benadryl 25 mg p.o. at bedtime for sleep Infectious Disease / Hematologic: She has a white blood cell count of 47,000. 89% neutrophils and 10% metamyelocytes. From chart review she has had some leukocytosis since November of last year, however it continues to rise and this is a 14k jump from a month and 4 days ago. While it is possible that this represents an infectious process superimposing an oncologic process, she has little clinical signs of serious infection. She has been afebrile with normal heart rate. She did have mild tachypnea, but this is better explained by her pulmonary edema. -We will consider hematology consultation when her hypertensive emergency is resolved -We will consider antibiotics if she clinically deteriorates Fluids: Adequate p.o. intake Electrolytes: monitor and replete with caution Nutrition: Renal and diabetic diet GI prophylaxis: not indicated: Continue home medication Pepcid 10 mg p.o. twice daily VTE prophylaxis: Heparin 5000 units every 8 hours Patient was seen and examined with Dr. Snyder <Carter Doty - 11/01/18 20:49> - Attending Attestation The exam, history, and the medical decision-making described in the above note were completed with the assistance of the resident physician. I reviewed and agree with the findings presented. I attest that I had a [id number] encounter with the patient on the same day, and personally performed and documented my assessment and findings in the medical record. I saw her during her admission in the ED. Appreciate help from Dr Mendes <Gissel Snyder - 11/02/18 09:15>
[2018-11-01 15:33] LABS: Bacteria,Urine Rare /hpf; Bilirubin,Urine Negative (Negative); Clarity,Urine Hazy (Clear); Color,Urine Yellow (Yellw/Straw); Glucose,Urine (UA) 50 mg/dL (Negative); Hyaline Casts,Urine 3 /lpf (0-3); Leukocyte Esterase,Urine Negative (Negative); Mucus,Urine Few /lpf (Occasional); Nitrite,Urine Negative (Negative); Specific Gravity,Urine 1.011 (1.002-1.035); Squamous Epithelial Cell,Urine <1 /hpf (0-5)
[2018-11-01] MEDS ORDERED: hydrALAZINE HCl Inj 20 MG/ML Vial IV.PUSH PRN (16:47)
[2018-11-01] MEDS: Acetaminophen 325 MG Tablet PO PRN (17:59)
[2018-11-01] MEDS: Heparin - SQ 10,000 UNITS/ML Vial SQ SCH (19:37)
[2018-11-01] MEDS: Insulin NovoLOG Aspart Correctional Sugar Inj SQ SCH ×2 (21:07→21:08)
[2018-11-01 21:17] LABS: Creatine Kinase 108 U/L (26-192); Troponin I 0.28 ng/mL (0.02-0.05)
[2018-11-01] MEDS: Gabapentin 100 MG Capsule PO SCH (22:50)
[2018-11-01] MEDS: Senna/Docusate Sodium 8.6/50 MG Tablet PO SCH (22:51)
[2018-11-01] MEDS: Carvedilol 12.5 MG Tablet PO SCH (22:51)
[2018-11-01] MEDS: Insulin Detemir Inj 1,000 UNIT/10 ML Vial SQ SCH (22:52)
--- NOTE | 2018-11-01 23:09 | MB ---
cc: Satya Mendes MD DATE: 11/01/2018 REASON FOR CONSULTATION: Chronic kidney disease with advanced stage IV renal disease. HISTORY OF PRESENT ILLNESS: This is a 58-year-old female with past medical history of advanced stage IV chronic kidney disease, chronic obstructive pulmonary disease, hypertension, diabetes mellitus, ischemic heart disease, congestive heart failure with possible diastolic dysfunction. Came to the hospital with complaint of worsening shortness of breath. I was called to see the patient for elevated BUN and creatinine. The patient has been following with me in the office and she has advanced stage IV chronic kidney disease. Her baseline creatinine has been in the range of 2.7-3.2 and patient came with a creatinine of 3.2 now. She was seen by me in the office about 2 months ago, and at that time, her GFR was around 16-17, and she was told that she would need dialysis soon. The patient has gradual worsening of shortness of breath for the last few days. She was on Lasix twice a day and 6 months ago, it was reduced to once a day since she has worsening renal function; but for the last 6 months, she has been doing reasonably well with her breathing. She has this chronic edema of the legs, which is slightly more worse for this hospitalization. There is no dysuria or hematuria. She did notice that she is passing gas the last 2-3 days. She had nausea and not been eating well because her appetite is not good and she also admitted . She denies any history of diarrhea. No chest pain. No palpitation. In the emergency department, the patient was given Lasix and magnesium and sublingual nitroglycerin, and also potassium and did have improvement in her renal function. PAST MEDICAL HISTORY: Hypertension, ischemic heart disease, congestive heart failure, chronic obstructive pulmonary disease, diabetes mellitus, chronic kidney disease, lymphedema of the legs. PAST SURGICAL HISTORY: History of left arm AV fistula surgeries. REVIEW OF SYSTEMS: She denies any history of fever. No headache, dizziness, or blurring of vision. She has gradual worsening of shortness of breath, more on exertion. There is a mild cough, mainly dry. She has generalized weakness, feeling tired, has decreased appetite, occasional nausea. There is no vomiting. Has metallic taste in her mouth. She denies any abdominal pain. There is no diarrhea. SOCIAL HISTORY: The patient lives with her roommate. She uses a walker to walk around. She has a past history of smoking. There is no history of alcoholism. FAMILY HISTORY: Her mom, of note, she is 92 and in the [facility]. The father because of COPD. She also has a 35-year-old son. No known family history of renal disease. ALLERGIES: THERE ARE NO KNOWN DRUG ALLERGIES. MEDICATIONS: Currently she is on chronic medications. 1. Tylenol as needed. 2. Milk of magnesia as needed. 3. Norvasc 10 mg once a day. 4. Lipitor 40 mg once a day. 5. Coreg 25 mg twice daily. 6. Celexa 20 mg once a day. 7. Catapres 0.1 mg as needed and 0.2 mg twice daily. 8. Benadryl 25 mg at bedtime. 9. Pepcid 10 mg twice daily. 10. Neurontin 200 mg at bedtime. 11. Heparin subcutaneous 5000 units every 8 hours. 12. Hydralazine 10 mg as needed and hydralazine 100 mg 3 times daily. 13. Insulin as per sliding scale. 14. Insulin detemir 20 units subcutaneous twice daily. 15. Zofran as needed. 16. Prednisone 1 mg orally daily. 17. Molly-Colace once a day. 18. Senokot 17.2 mg every 12 hours. PHYSICAL EXAMINATION: GENERAL: Patient is awake, alert. She is not in acute distress. VITAL SIGNS: Her blood pressure is 166/97, temperature is 98.8, oxygen saturation is 94-95% on 4 liters nasal cannula. HEENT: Pupils are mid constricted. Nonicteric sclerae. Conjunctivae are pale. NECK: Supple. JVD is slightly elevated. LUNGS: The patient has bilateral decreased air entry with basal rales and scattered wheezing. HEART: S1, S2. Regular rate and rhythm. ABDOMEN: Obese, soft. There is no tenderness. Bowel sounds positive. EXTREMITIES: She has bilateral 2+ leg edema. Left arm has a fistula near the elbow and it has good bruit. LABORATORY DATA: WBC count is 47, hemoglobin is 8.2, platelet count of 392. INR is 1.1. Sodium 140, potassium 3.7, chloride 105, bicarbonate 25.2, BUN 43, creatinine 3.25, glucose 272, calcium 8.4, magnesium 1.7, AST is 10, ALT is 12, troponin 0.28. Total protein 7.0 with albumin of 2.6. Urinalysis showing protein of 100. Last month, she has a complements normal and ANCA were negative. PTH was 168. This was done in September 2017. IMAGING: The patient has chest x-ray done, which shows that the patient has increased vascular marking with bilateral pulmonary infiltrates, cardiomegaly. The patient has echocardiogram done in September 2017, which shows that her left ventricular systolic function is with estimated ejection fraction of 60-65%. Mild mitral and tricuspid regurgitation. ASSESSMENT: 1. Chronic kidney disease, advanced renal failure. 2. Hypertension, uncontrolled. 3. Fluid overloaded status. 4. Anemia. 5. Diabetes mellitus. 6. Leukocytosis with history of multiple myelocytes. PLAN: This patient has advanced stage IV renal disease and she most likely has hypertensive diabetic renal failure. Serology has been negative in the past. The patient is on fluid overload status. She was given 1 dose of Lasix and put the patient on Bumex. The patient has arteriovenous fistula done wait until her arteriovenous fistula. Get physical therapy, occupational therapy. Start her on dialysis, but if her renal function keeps on getting worse and she is having this pulmonary congestion, she may be needing dialysis sooner by putting a Permcath. This was discussed with the patient. She has anemia, possibly related to chronic gave her 1 dose of Epogen. I will also get the serum protein electrophoresis because it is not done in the past, at least in the emergency room in the hospital. Avoid any nephrotoxins. Follow the urine output and BMP. Thank you for the consultation. I will follow the patient while she is in the hospital. MD CAREN LopezJ/niru/ , 09:56 PM , 10:14 PM
[2018-11-01] MEDS: Umeclindinium 62.5 MCG/Vilanterol 25 MCG Inhaler INH SCH (23:13)
[2018-11-02 01:04] LABS: Hematocrit 23.7 % (35.0-46.0); Hemoglobin 7.7 gm/dL (11.6-15.3)
[2018-11-02] MEDS: Heparin - SQ 10,000 UNITS/ML Vial SQ SCH ×4 (01:05→23:06)
[2018-11-02 01:28] LABS: Creatine Kinase 110 U/L (26-192); Troponin I 0.32 ng/mL (0.02-0.05)
[2018-11-02 01:41] LABS: Creatine Kinase MB 1.2 ng/mL (0.5-3.6)
[2018-11-02 03:58] LABS: Hematocrit 23.4 % (35.0-46.0); Hemoglobin 7.4 gm/dL (11.6-15.3); Mean Corpuscular HGB Conc 31.6 % (32.0-36.0); Mean Corpuscular Hemoglobin 29.1 pg (27.0-34.0); Mean Corpuscular Volume 92.1 fL (80.0-100.0); Mean Platelet Volume 7.7 fL (7.0-11.0); Platelet Count 355 th/mm3 (150-450); Red Blood Count 2.54 mil/mm3 (4.00-5.30); Red Cell Distribution Width 16.8 % (11.6-17.2); White Blood Count 42.4 th/mm3 (4.0-11.0)
[2018-11-02 04:15] LABS: Albumin 2.4 g/dL (3.4-5.0); Anion Gap 8 meq/L (5-15); Aspartate Aminotransferase 10 U/L (15-37); Blood Urea Nitrogen 46 mg/dL (7-18); Calcium 8.4 mg/dL (8.5-10.1); Carbon Dioxide 26.9 meq/L (21.0-32.0); Chloride 106 meq/L (98-107); Glomerular Filtration Rate 14 mL/min (>89); Glucose,Random 179 mg/dL (74-106); Potassium 3.7 meq/L (3.5-5.1); Sodium 141 meq/L (136-145)
[2018-11-02 04:16] LABS: Alanine Aminotransferase 13 U/L (10-53); Phosphorus 3.5 mg/dL (2.5-4.9)
[2018-11-02 04:19] LABS: Alkaline Phosphatase 66 U/L (45-117); Total Protein 6.5 g/dL (6.4-8.2)
[2018-11-02] MEDS: Insulin NovoLOG Aspart Correctional Sugar Inj SQ SCH ×5 (04:31→20:45)
[2018-11-02 04:44] LABS: Eosinophils 1 % (0-4); Lymphocytes 6 % (9-44); Metamyelocytes 4 % (0-1); Monocytes 4 % (0-8); Myelocytes 7 % (0-0); Promyelocyte 4 % (0-0); Tallied Nucleated RBC 1 (0-0)
[2018-11-02 04:45] LABS: Platelet Estimate Normal (Normal); Platelet Morphology Normal (Normal)
[2018-11-02 04:46] LABS: Polychromasia 2.2 % (0.0-1.9)
[2018-11-02] MEDS: Famotidine 20 MG Tablet PO SCH ×2 (08:37→20:21)
[2018-11-02] MEDS: amLODIPine 10 MG Tablet PO SCH (08:38)
[2018-11-02] MEDS: Citalopram 20 MG Tablet PO SCH (08:38)
[2018-11-02] MEDS: Carvedilol 12.5 MG Tablet PO SCH ×2 (08:38→20:22)
[2018-11-02] MEDS: Senna/Docusate Sodium 8.6/50 MG Tablet PO SCH ×2 (08:38→20:22)
[2018-11-02] MEDS: Insulin Detemir Inj 1,000 UNIT/10 ML Vial SQ SCH ×2 (08:39→20:45)
[2018-11-02] MEDS: predniSONE 1 MG Tablet PO SCH (08:39)
--- NOTE | 2018-11-02 08:54 | P.HPFP ---
History of Present Illness Primary Care Physician: Stacy Fitzpatrick MD Chief Complaint: SOB History of Present Illness: Ms Nguyen is a 58 year-old female with past medical history significant for CHF and end-stage renal disease who presented after 3 days of feeling weak. She states for the past couple of weeks she has had difficulty breathing even with minimal exertion. She states she does not lay down, so she is not sure if she would have shortness of breath while lying down, she does sleep with two pillows at night. She reports cough and some chest congestion. She denies chest pain, palpitations, and increased swelling in her legs. She has end-stage renal disease and is followed by Dr. Mendes. She has an AV fistula that was placed in September in anticipation of needing hemodialysis, however has not required dialysis yet. This catheter will not be ready until the end of November per pt. She noticed that she has been urinating less for the last couple of days. She takes 20 mg of Lasix daily. She also reports nausea without vomiting or abdominal pain. She has had a couple loose stools the day of admission, but otherwise bowel movements have been normal. She has a history of elevated WBCs, including metamyelocytes in the past. She is seeing a seismograph computer as an outpatient, but does not remember who. They had planned on a biopsy (likely of the bone marrow), but she could not have it done due to her aspirin. In the ED she received aspirin, 60 mg of IV Lasix, 2 g of magnesium, topical and sublingual nitroglycerin, and 40 mg of potassium. She reported improvement in her shortness of breath with the nitroglycerin. Medical History: Her primary care doctor is Stacy Fitzpatrick Diabetes: On insulin CHF: Diagnosed September 2017, does not have a branch director. last echo was here, may have been 60% EF Hypertension ESRD: Follows with Dr. Mendes COPD Lymphedema Surgical: AV fistula in September Family: Multiple relatives with high blood pressure. Her mom is alive at 92. Her dad related to COPD. She has a 35-year-old son who is healthy. Social: Lives with a roommate who is with her today She walks with a 4 wheeled walker and does need help doing some things around the house Former smoker, no alcohol or other drug abuse - Diagnosis (1) Leukocytosis (2) Congestive heart failure (3) ESRD (end stage renal disease) (4) Diabetes (5) Acute on chronic kidney failure (6) Elevated troponin (7) Hypertensive emergency Inpatient Certification: I certify that the inpatient services were ordered in accordance with Medicare regulations governing the order. This includes certification that hospital inpatient services are reasonable and necessary and in the case of services not specified as inpatient-only under 42 CFR 419.22(n), that they are appropriately provided as inpatient services in accordance to with the 2-midnight benchmark under 43 CFR 412.3(e) Estimated Total Length of Stay (Days): 3 Plans for Post Hospital Care: Home Review of Systems See H&P from yesterday [facility] - History History Provided By: Patient - Medical History Medical History: Medical History (Last Reviewed 11/01/18 @ 12:42 by Lupe Hall DO) AV fistula Anxiety Arthritis Bilateral knee pain COPD (chronic obstructive pulmonary disease) Chronic shoulder pain Congestive heart failure (CHF) Edema extremities End stage kidney disease Hyperlipidemia Hypertension Neuropathy Shortness of breath Wears dentures Wears glasses - Surgical History Surgical History: Surgical History (Last Reviewed 11/01/18 @ 12:42 by Lupe Hall DO) Hx of section - Tobacco History Second Hand Smoke Exposure: No Tobacco Use In Past 30 Days: No Smoking Status: Former smoker Tobacco Type: Cigarettes - Alcohol History How Often Do You Have a Drink Containing Alcohol: Never - Substance Use History Substance History: No History of Abuse - Travel History Recent Travel in the [place] Within the Last 8 Weeks: No Recent Travel Out of the Country Within the Last 8 Weeks: No - Immunization History Tetanus Immunization: Unsure Medications and Allergies Active Medications: Active Medications Acetaminophen (Tylenol) 650 mg PO Q4H PRN PRN Reason: Temp > 100.4 Last Admin: 11/01/18 17:59 Dose: 650 mg Al Hydroxide/Mg Hydroxide (Milk Of Magnesia Liq) 30 ml PO Q12H PRN PRN Reason: Mild Constipation Amlodipine Besylate (Norvasc) 10 mg PO DAILY [facility] Last Admin: 11/02/18 08:38 Dose: 10 mg Atorvastatin Calcium (Lipitor) 40 mg PO QPM [facility] Last Admin: 11/01/18 19:37 Dose: 40 mg Bumetanide (Bumex Inj) 2 mg IV.PUSH BID@0900,1800 [facility] Last Admin: 11/02/18 08:39 Dose: 2 mg Carvedilol (Coreg) 25 mg PO BID [facility] Last Admin: 11/02/18 08:38 Dose: 25 mg Chlorhexidine Gluconate (Chlorhexidine 2% Cloth) 3 pack TOPICAL DAILY@0400 LAXMI Stop: 11/08/18 03:59 Chlorhexidine Gluconate (Chlorhexidine 2% Cloth) 3 pack TOPICAL DAILY@0400 PRN PRN Reason: Extra cloth needed Stop: 11/08/18 03:59 Citalopram Hydrobromide (Celexa) 20 mg PO DAILY [facility] Last Admin: 11/02/18 08:38 Dose: 20 mg Clonidine HCl (Catapres) 0.2 mg PO BID [facility] Last Admin: 11/02/18 08:38 Dose: 0.2 mg Clonidine HCl (Catapres) 0.1 mg PO Q1H PRN PRN Reason: HYPERTENSION Last Admin: 11/01/18 21:10 Dose: 0.1 mg Diphenhydramine HCl (Benadryl) 25 mg PO HS [facility] Last Admin: 11/01/18 22:52 Dose: 25 mg Famotidine (Pepcid) 10 mg PO BID [facility] Last Admin: 11/02/18 08:37 Dose: 10 mg Gabapentin (Neurontin) 200 mg PO HS [facility] Last Admin: 11/01/18 22:50 Dose: 200 mg Heparin Sodium (Porcine) (Heparin Inj) 5,000 units SQ Q8H [facility] Last Admin: 11/02/18 08:39 Dose: 5,000 units Hydralazine HCl (Apresoline) 100 mg PO TID [facility] Last Admin: 11/02/18 08:38 Dose: 100 mg Hydralazine HCl (Apresoline Inj) 10 mg IV.PUSH Q30M PRN PRN Reason: SEE DOSE INSTRUCTIONS Insulin Aspart (Novolog Insulin Correctional Sugar Inj) 0 unit SQ ACHS AND 3AM LAXMI; Protocol Last Admin: 11/02/18 08:39 Dose: 5 unit Insulin Detemir (Levemir Inj) 20 unit SQ BID [facility] Last Admin: 11/02/18 08:39 Dose: 20 unit Ondansetron HCl (Zofran Inj) 4 mg IV.PUSH Q6H PRN PRN Reason: NAUSEA OR VOMITING Prednisone (Deltasone) 1 mg PO DAILY [facility] Last Admin: 11/02/18 08:39 Dose: 1 mg Senna/Docusate Sodium (Molly-Colace) 1 tab PO BID [facility] Last Admin: 11/02/18 08:38 Dose: 1 tab Sennosides (Senokot) 17.2 mg PO Q12H PRN PRN Reason: Moderate Constipation Sodium Chloride (Ns Flush) 2 ml IV.FLUSH BID [facility] Last Admin: 11/02/18 08:40 Dose: 2 ml Sodium Chloride (Ns Flush) 2 ml IV.FLUSH PRN PRN PRN Reason: FLUSH AFTER USING IV ACCESS Umeclidinium/Vilanterol (Anoro-Ellipta 62.5/25 Mcg Inh) 1 inhalation INH Q24H [facility] Last Admin: 11/01/18 23:13 Dose: Not Given Allergies Allergy/AdvReac Type Severity Reaction Status Date / Time No Known Allergies Allergy Verified 11/01/18 12:05 Home Medications Medication Instructions Recorded Confirmed Type amlodipine 10 mg PO DAILY 09/27/18 11/01/18 History atorvastatin 40 mg PO QPM 09/27/18 11/01/18 History carvedilol 25 mg PO BID 09/27/18 11/01/18 History citalopram 20 mg PO DAILY 09/27/18 11/01/18 History clonidine HCl 0.2 mg PO BID 09/27/18 11/01/18 History diphenhydramine HCl 25 mg PO HS 09/27/18 11/01/18 History hydralazine 100 mg PO TID 09/27/18 11/01/18 History insulin asp prt-insulin aspart 54 unit SUBCUT QAM 09/27/18 11/01/18 History [Novolog Mix 70-30 U-100 Insuln] insulin asp prt-insulin aspart 58 unit SUBCUT QPM 09/27/18 11/01/18 History [Novolog Mix 70-30 U-100 Insuln] insulin regular human [Novolin R 1 sliding scale dose SUBCUT UD 09/27/18 History Regular U-100 Insuln] oxymetazoline [Afrin 2 spray INTRANASAL Q12H 09/27/18 11/01/18 History (oxymetazoline)] umeclidinium-vilanterol 1 inh INHALATION Q24H 09/27/18 11/01/18 History ranitidine HCl [Zantac] 150 mg PO DAILY 09/28/18 11/01/18 History gabapentin 200 mg PO DAILY 11/01/18 11/01/18 History prednisone 1 mg PO DAILY 11/01/18 11/01/18 History Exam Vital signs: Vital Signs 11/01/18 12:05 11/01/18 12:20 11/01/18 15:07 Temperature 97.9 F Pulse Rate 82 68 Respiratory Rate 22 22 Blood Pressure 218/86 H Pulse Oximetry 93 L 95 93 L 11/01/18 15:10 11/01/18 15:11 11/01/18 16:00 Temperature 98.3 F Pulse Rate 79 Respiratory Rate 18 Blood Pressure 186/77 H 199/81 H Pulse Oximetry 94 L 94 L 11/01/18 20:21 11/01/18 21:30 11/01/18 22:02 Temperature 98.2 F 98.8 F Pulse Rate 70 102 H 66 Respiratory Rate 18 16 18 Blood Pressure 184/77 H 166/97 H 158/67 H Pulse Oximetry 95 97 11/02/18 02:04 11/02/18 05:52 11/02/18 06:34 Temperature Pulse Rate 68 64 68 Respiratory Rate 14 31 H Blood Pressure 135/63 157/70 H Pulse Oximetry 95 95 88 L 11/02/18 06:41 11/02/18 07:00 11/02/18 07:01 Temperature Pulse Rate 63 68 73 Respiratory Rate 21 49 H Blood Pressure 193/76 H Pulse Oximetry 92 L 93 L 11/02/18 07:40 Temperature Pulse Rate 66 Respiratory Rate Blood Pressure Pulse Oximetry Intake & Output 11/01/18 11/02/18 11/02/18 18:59 06:59 18:59 Intake Total 0 / 0 100 / 100 Output Total 250 / 250 Balance -250 / -250 100 / 100 Weight 136.078 kg 134.2 kg Intake: IV 100 / 100 Oral 0 / 0 Output: Urine 250 / 250 Other: Weight On Admission 134.7 kg - Additional findings Additional findings: See H&P from yesterday Results - Labs Result diagrams: 11/04/18 04:26 11/04/18 04:26 Abnormal lab results 11/01/18 11/01/18 11/01/18 Range/Units 12:28 12:28 12:28 WBC 47.0 H (4.0-11.0) th/mm3 RBC 2.84 L (4.00-5.30) mil/mm3 Hgb 8.2 L (11.6-15.3) gm/dL Hct 25.4 L (35.0-46.0) % MCHC (32.0-36.0) % Neut % (Auto) 89.3 H (16.0-70.0) % Lymph % (Auto) 2.6 L (9.0-44.0) % Neut # (Auto) 42.0 H (1.8-7.7) th/mm3 Delta # (Auto) 2.9 H (0.0-0.9) th/mm3 Eos # (Auto) 0.5 H (0.0-0.4) th/mm3 Baso # (Auto) 0.5 H (0.0-0.2) th/mm3 Band Neuts % (Manual) 12 H (0-6) % Lymphocytes % (Manual) (9-44) % Metamyelocytes % (Man) 10 H (0-1) % Myelocytes % (Man) 3 H (0-0) % Promyelocytes % (Man) (0-0) % Abs Neuts (Manual) 42.8 H (1.8-7.7) th/mm3 Nucleated RBCs/100 WBC 1 H (0-0) /100 WBC Polychromasia (0.0-1.9) % Keratocytes (None) BUN 43 H (7-18) mg/dL Creatinine 3.25 H (0.50-1.00) mg/dL Estimated GFR 15 L (>89) mL/min POC Glucose (68-110) mg/dl Random Glucose 257 H (74-106) mg/dL Calcium 8.4 L (8.5-10.1) mg/dL AST 10 L (15-37) U/L Troponin I 0.24 H (0.02-0.05) ng/mL B-Natriuretic Peptide 236 H (0-100) pg/mL Total Protein (PEP) (6.4-8.2) gm/dL Albumin 2.6 L (3.4-5.0) g/dL Urine Clarity (Clear) Urine Protein (Neg-Trace) mg/dL Urine Bacteria (None) /hpf Urine Mucus (Occasional) /lpf 11/01/18 11/01/18 11/01/18 Range/Units 14:55 20:15 20:45 WBC (4.0-11.0) th/mm3 RBC (4.00-5.30) mil/mm3 Hgb (11.6-15.3) gm/dL Hct (35.0-46.0) % MCHC (32.0-36.0) % Neut % (Auto) (16.0-70.0) % Lymph % (Auto) (9.0-44.0) % Neut # (Auto) (1.8-7.7) th/mm3 Delta # (Auto) (0.0-0.9) th/mm3 Eos # (Auto) (0.0-0.4) th/mm3 Baso # (Auto) (0.0-0.2) th/mm3 Band Neuts % (Manual) (0-6) % Lymphocytes % (Manual) (9-44) % Metamyelocytes % (Man) (0-1) % Myelocytes % (Man) (0-0) % Promyelocytes % (Man) (0-0) % Abs Neuts (Manual) (1.8-7.7) th/mm3 Nucleated RBCs/100 WBC (0-0) /100 WBC Polychromasia (0.0-1.9) % Keratocytes (None) BUN (7-18) mg/dL Creatinine (0.50-1.00) mg/dL Estimated GFR (>89) mL/min POC Glucose 272 H (68-110) mg/dl Random Glucose (74-106) mg/dL Calcium (8.5-10.1) mg/dL AST (15-37) U/L Troponin I 0.28 H (0.02-0.05) ng/mL B-Natriuretic Peptide (0-100) pg/mL Total Protein (PEP) (6.4-8.2) gm/dL Albumin (3.4-5.0) g/dL Urine Clarity Hazy H (Clear) Urine Protein 100 H (Neg-Trace) mg/dL Urine Bacteria Rare H (None) /hpf Urine Mucus Few H (Occasional) /lpf 11/01/18 11/02/18 11/02/18 Range/Units 23:59 00:50 03:26 WBC 42.4 H (4.0-11.0) th/mm3 RBC 2.54 L (4.00-5.30) mil/mm3 Hgb 7.7 L 7.4 L (11.6-15.3) gm/dL Hct 23.7 L 23.4 L (35.0-46.0) % MCHC 31.6 L (32.0-36.0) % Neut % (Auto) (16.0-70.0) % Lymph % (Auto) (9.0-44.0) % Neut # (Auto) (1.8-7.7) th/mm3 Delta # (Auto) (0.0-0.9) th/mm3 Eos # (Auto) (0.0-0.4) th/mm3 Baso # (Auto) (0.0-0.2) th/mm3 Band Neuts % (Manual) 14 H (0-6) % Lymphocytes % (Manual) 6 L (9-44) % Metamyelocytes % (Man) 4 H (0-1) % Myelocytes % (Man) 7 H (0-0) % Promyelocytes % (Man) 4 H (0-0) % Abs Neuts (Manual) 37.7 H (1.8-7.7) th/mm3 Nucleated RBCs/100 WBC 1 H (0-0) /100 WBC Polychromasia 2.2 H (0.0-1.9) % Keratocytes Occ H (None) BUN (7-18) mg/dL Creatinine (0.50-1.00) mg/dL Estimated GFR (>89) mL/min POC Glucose (68-110) mg/dl Random Glucose (74-106) mg/dL Calcium (8.5-10.1) mg/dL AST (15-37) U/L Troponin I 0.32 H (0.02-0.05) ng/mL B-Natriuretic Peptide (0-100) pg/mL Total Protein (PEP) (6.4-8.2) gm/dL Albumin (3.4-5.0) g/dL Urine Clarity (Clear) Urine Protein (Neg-Trace) mg/dL Urine Bacteria (None) /hpf Urine Mucus (Occasional) /lpf 11/02/18 11/02/18 11/02/18 Range/Units 03:26 03:26 08:01 WBC (4.0-11.0) th/mm3 RBC (4.00-5.30) mil/mm3 Hgb (11.6-15.3) gm/dL Hct (35.0-46.0) % MCHC (32.0-36.0) % Neut % (Auto) (16.0-70.0) % Lymph % (Auto) (9.0-44.0) % Neut # (Auto) (1.8-7.7) th/mm3 Delta # (Auto) (0.0-0.9) th/mm3 Eos # (Auto) (0.0-0.4) th/mm3 Baso # (Auto) (0.0-0.2) th/mm3 Band Neuts % (Manual) (0-6) % Lymphocytes % (Manual) (9-44) % Metamyelocytes % (Man) (0-1) % Myelocytes % (Man) (0-0) % Promyelocytes % (Man) (0-0) % Abs Neuts (Manual) (1.8-7.7) th/mm3 Nucleated RBCs/100 WBC (0-0) /100 WBC Polychromasia (0.0-1.9) % Keratocytes (None) BUN 46 H (7-18) mg/dL Creatinine 3.31 H (0.50-1.00) mg/dL Estimated GFR 14 L (>89) mL/min POC Glucose 214 H (68-110) mg/dl Random Glucose 179 H (74-106) mg/dL Calcium 8.4 L (8.5-10.1) mg/dL AST 10 L (15-37) U/L Troponin I (0.02-0.05) ng/mL B-Natriuretic Peptide (0-100) pg/mL Total Protein (PEP) 5.9 L (6.4-8.2) gm/dL Albumin 2.4 L (3.4-5.0) g/dL Urine Clarity (Clear) Urine Protein (Neg-Trace) mg/dL Urine Bacteria (None) /hpf Urine Mucus (Occasional) /lpf Short CBC 11/01/18 11/01/18 11/02/18 Range/Units 12:28 23:59 03:26 WBC 47.0 H 42.4 H (4.0-11.0) th/mm3 Hgb 8.2 L 7.7 L 7.4 L (11.6-15.3) gm/dL Hct 25.4 L 23.7 L 23.4 L (35.0-46.0) % Plt Count 392 355 (150-450) th/mm3 BMP 11/01/18 11/02/18 12:28 03:26 Sodium 140 141 Potassium 3.7 3.7 Chloride 105 106 Carbon Dioxide 25.2 26.9 BUN 43 H 46 H Creatinine 3.25 H 3.31 H Calcium 8.4 L 8.4 L Cardiac Enzymes 11/01/18 11/01/18 11/02/18 Range/Units 12:28 20:45 00:50 Total Creatine Kinase 97 108 110 (26-192) U/L CK-MB (CK-2) Less than 1.0 1.2 (0.5-3.6) ng/mL Troponin I 0.24 H 0.28 H 0.32 H (0.02-0.05) ng/mL Liver Function 11/01/18 11/02/18 Range/Units 12:28 03:26 Total Bilirubin 0.5 0.3 (0.2-1.0) mg/dL AST 10 L 10 L (15-37) U/L ALT 12 13 (10-53) U/L Alkaline Phosphatase 74 66 (45-117) U/L Albumin 2.6 L 2.4 L (3.4-5.0) g/dL Urine 11/01/18 Range/Units 14:55 Urine Color Yellow (Yellw/Straw) Urine Clarity Hazy H (Clear) Urine pH 5.0 (5.0-8.5) Ur Specific [place] 1.011 (1.002-1.035) Urine Protein 100 H (Neg-Trace) mg/dL Urine Glucose (UA) 50 (Negative) mg/dL - Imaging Impressions Chest X-Ray 11/01/18 12:20 CONCLUSION: 1. Bilateral pulmonary infiltrates are noted consistent with moderate pulmonary edema versus pneumonia. 2. Cardiomegaly. Caprini VTE Risk Assessment Caprini VTE Risk Assessment: Moderate/High Risk (score >= 2) Caprini Risk Assessment Model: Point Value = 1 Point Value = 2 Point Value = 3 Point Value = 5 Age 41-60 Minor surgery BMI > 25 kg/m2 Swollen legs Varicose veins or History of unexplained or recurrent spontaneous Oral contraceptives or hormone replacement Sepsis (< 1 month) Serious lung disease, including pneumonia (< 1 month) Abnormal pulmonary function Acute myocardial infarction Congestive heart failure (< 1 month) History of inflammatory bowel disease Medical patient at bed rest Age 61-74 Arthroscopic surgery Major open surgery (> 45 min) Laparoscopic surgery (> 45 min) Malignancy Confined to bed (> 72 hours) Immobilizing plaster cast Central venous access Age >= 75 History of VTE Family history of VTE Factor V Leiden Prothrombin [id number] Lupus anticoagulant Anticardiolipin antibodies Elevated serum homocysteine Heparin-induced thrombocytopenia Other congenital or acquired thrombophilia Stroke (< 1 month) Elective arthroplasty Hip, pelvis, or leg fracture Acute spinal cord injury (< 1 month) Prophylaxis Regimen: Total Risk Factor Score Risk Level Prophylaxis Regimen 0-1 Low Early ambulation 2 Moderate Order ONE of the following: *Sequential Compression Device (SCD) *Heparin 5000 units SQ BID 3-4 Higher Order ONE of the following medications: *Heparin 5000 units SQ TID *Enoxaparin/Lovenox 40 mg SQ daily (WT < 150 kg, CrCl > 30 mL/min) *Enoxaparin/Lovenox 30 mg SQ daily (WT < 150 kg, CrCl > 10-29 mL/min) *Enoxaparin/Lovenox 30 mg SQ BID (WT < 150 kg, CrCl > 30 mL/min) AND/OR *Sequential Compression Device (SCD) 5 or more Highest Order ONE of the following medications: *Heparin 5000 units SQ TID (Preferred with Epidurals) *Enoxaparin/Lovenox 40 mg SQ daily (WT < 150 kg, CrCl > 30 mL/min) *Enoxaparin/Lovenox 30 mg SQ daily (WT < 150 kg, CrCl > 10-29 mL/min) *Enoxaparin/Lovenox 30 mg SQ BID (WT < 150 kg, CrCl > 30 mL/min) AND *Sequential Compression Device (SCD) Assessment and Plan - Assessment (1) Leukocytosis Code(s): D72.829 - Elevated white blood cell count, unspecified Status: Acute (2) Congestive heart failure Code(s): I50.9 - Heart failure, unspecified Status: Chronic (3) ESRD (end stage renal disease) Code(s): N18.6 - End stage renal disease Status: Chronic (4) Diabetes Code(s): E11.9 - Type 2 diabetes mellitus without complications Status: Acute (5) Acute on chronic kidney failure Code(s): N17.9 - Acute kidney failure, unspecified; N18.9 - Chronic kidney disease, unspecified Status: Acute (6) Elevated troponin Code(s): R74.8 - Abnormal levels of other serum enzymes Status: Acute (7) Hypertensive emergency Code(s): I16.1 - Hypertensive emergency Status: Acute - Assessment and Plan She is a 58-year-old female with a past medical history significant for CHF and ESRD who presented with shortness of breath on minimal exertion. Renal: History of ESRD. She had a mild creatinine bump from 2.78 on 09/27 to 3.25 today. In addition she reported decreased urine output. -Dr. Mendes is her process laboratory specialist, we have consulted him and would appreciate recommendations -60 mg IV Lasix given in the ED, will continue 40mg IV BID for now (she is on 20mg PO QD at home) -If renal function worsens and BP and pulmonary status are stable will decrease Lasix dosage Cardiovascular: On admission her blood pressure was 218/86. This qualifies as hypertensive emergency due to her new onset dyspnea and troponin elevation (0.24). She also reports a history of CHF her EF was 60-65% on 09/27/17 so she may have diastolic dysfunction. We have no record of this in the chart though. Her symptoms may also be related to fluid overload from her ESRD. EKG showed a mild ST depression in V5 and V6. -Clonidine as needed for BP > 180/110 -60 mg IV Lasix given in the ED, will continue 40mg IV BID for now Trend troponins and EKGs -Continue home HTN meds (amlodipine, carvedilol, clonidine, Lasix, hydralazine) -Will consider repeat Echo / cardio consult if no improvement -Continue home medication Lipitor Respiratory: She had O2 sats in the mid 80's on RA on arrival. It improved to mid 90's with 4.5 L via NC. This may be related to hypertensive emergency or fluid overload from her ESRD. Treatment as above. At home she is on Anoro-Ellipta for her COPD. We will continue this if able to get it in the hospital, otherwise will substitute with a different inhaler/ nebulizer Endocrine: History of diabetes treated with 70/30 at home (112 units daily + SSI ) -Levemir 20 units twice daily ACHS & 3AM medium dose sliding scale insulin, will consider adjusting to high dose if needed Continue home medication gabapentin for neuropathy 200 mg p.o. at bedtime Neurologic/psychiatric: Continue home medications Celexa 20 mg p.o. daily Continue home medication Benadryl 25 mg p.o. at bedtime for sleep Infectious Disease / Hematologic: She has a white blood cell count of 47,000. 89% neutrophils and 10% metamyelocytes. From chart review she has had some leukocytosis since November of last year, however it continues to rise and this is a 14k jump from a month and 4 days ago. While it is possible that this represents an infectious process superimposing an oncologic process, she has little clinical signs of serious infection. She has been afebrile with normal heart rate. She did have mild tachypnea, but this is better explained by her pulmonary edema. -We will consider hematology consultation when her hypertensive emergency is resolved -We will consider antibiotics if she clinically deteriorates Fluids: Adequate p.o. intake Electrolytes: monitor and replete with caution Nutrition: Renal and diabetic diet GI prophylaxis: not indicated: Continue home medication Pepcid 10 mg p.o. twice daily VTE prophylaxis: Heparin 5000 units every 8 hours H&P: Quality - VTE Deep Vein Thrombosis/Pulmonary Embolism Present on Admission: No
[2018-11-02] MEDS ORDERED: Sodium Chlor 0.9% Inj 250 ML IV.SIG SCH (09:00)
[2018-11-02 10:06] LABS: Creatine Kinase 121 U/L (26-192); Troponin I 0.19 ng/mL (0.02-0.05)
[2018-11-02 10:18] LABS: Creatine Kinase MB 1.3 ng/mL (0.5-3.6)
--- NOTE | 2018-11-02 15:49 | P.PNNP ---
Subjective Interval history: Seen in AM. Reports that shortness of breath has improved some and nausea. No chest pain or vomiting. Creatinine at 3.3. <Zulma Iverson - Last Filed: 11/02/18 15:34> Physical Exam Vital signs: Vital Signs 11/01/18 16:00 11/01/18 20:21 11/01/18 21:30 Temperature 98.3 F 98.2 F 98.8 F Pulse Rate 79 70 102 H Respiratory Rate 18 18 16 Blood Pressure 199/81 H 184/77 H 166/97 H Pulse Oximetry 94 L 95 11/01/18 22:02 11/02/18 02:04 11/02/18 05:52 Temperature Pulse Rate 66 68 64 Respiratory Rate 18 14 Blood Pressure 158/67 H 135/63 157/70 H Pulse Oximetry 97 95 95 11/02/18 06:34 11/02/18 06:41 11/02/18 07:00 Temperature Pulse Rate 68 63 68 Respiratory Rate 31 H 21 Blood Pressure Pulse Oximetry 88 L 92 L 11/02/18 07:01 11/02/18 07:29 11/02/18 07:40 Temperature Pulse Rate 73 66 66 Respiratory Rate 49 H 16 Blood Pressure 193/76 H 176/74 H Pulse Oximetry 93 L 93 L 11/02/18 08:00 11/02/18 08:01 11/02/18 08:44 Temperature Pulse Rate 65 65 74 Respiratory Rate 18 17 29 H Blood Pressure 192/79 H 222/87 H Pulse Oximetry 93 L 94 L 93 L 11/02/18 08:52 11/02/18 09:00 11/02/18 09:09 Temperature Pulse Rate 72 77 71 Respiratory Rate 38 H 29 H 26 H Blood Pressure 218/86 H 209/85 H 176/74 H Pulse Oximetry 90 L 93 L 93 L 11/02/18 09:21 11/02/18 09:41 11/02/18 10:00 Temperature Pulse Rate 72 70 67 Respiratory Rate 39 H 22 15 Blood Pressure 165/71 H 160/68 H Pulse Oximetry 92 L 92 L 91 L 11/02/18 10:01 11/02/18 10:11 11/02/18 10:14 Temperature Pulse Rate 67 72 Respiratory Rate 19 Blood Pressure 144/65 H Pulse Oximetry 92 L 92 L 11/02/18 10:21 11/02/18 10:40 02/28/19 11:00 Temperature Pulse Rate 64 75 65 Respiratory Rate 18 16 21 Blood Pressure 136/60 160/69 H Pulse Oximetry 96 96 97 11/02/18 11:01 11/02/18 11:21 11/02/18 11:41 Temperature Pulse Rate 64 78 66 Respiratory Rate 18 18 12 Blood Pressure 141/63 H 175/70 H 169/67 H Pulse Oximetry 97 96 95 11/02/18 12:00 11/02/18 12:10 11/02/18 12:53 Temperature Pulse Rate 93 H 72 74 Respiratory Rate 15 18 Blood Pressure 175/74 H Pulse Oximetry 87 L 93 L 11/02/18 13:00 11/02/18 13:21 11/02/18 13:36 Temperature 98.4 F Pulse Rate 82 79 70 Respiratory Rate 39 H 26 H 20 Blood Pressure 171/73 H 149/63 H 149/63 H Pulse Oximetry 92 L 93 L 92 L 11/02/18 13:40 11/02/18 13:53 11/02/18 14:00 Temperature 98.5 F 98.7 F Pulse Rate 73 76 76 Respiratory Rate 15 25 H 25 H Blood Pressure 155/68 H 155/65 H 155/65 H Pulse Oximetry 94 L 93 L 93 L 11/02/18 14:20 11/02/18 14:27 Temperature Pulse Rate 72 69 Respiratory Rate 24 Blood Pressure 166/70 H Pulse Oximetry 92 L Intake & Output 11/01/18 11/02/18 11/02/18 18:59 06:59 18:59 Intake Total 0 / 0 100 / 100 0 / 0 Output Total 250 / 250 Balance -250 / -250 100 / 100 0 / 0 Weight 136.078 kg 134.2 kg 134.7 kg Intake: IV 100 / 100 Oral 0 / 0 Intake (Blood Product) Amt 0 / 0 Rbc As-3 Leukoreduced Unit 0 / 0 [id number] Output: Urine 250 / 250 Other: Weight On Admission 134.7 kg Narrative: General: Alert and oriented. In no acute distress. Neck: Trachea midline.No JVD Respiratory: Normal respiratory effort, some crackles at the bases, good air movement Cardiovascular: Regular rate and rhythm with soft systolic murmur. Left AVF positive thrill and bruit. Abdomen: Bowel sounds present. Soft, non-tender. No masses noted. +BS Psychiatric: Alert and oriented. Normal affect. <Zulma Iverson - Last Filed: 11/02/18 15:34> Vital signs: Vital Signs 11/01/18 21:30 11/01/18 22:02 11/02/18 02:04 Temperature 98.8 F Pulse Rate 102 H 66 68 Respiratory Rate 16 18 14 Blood Pressure 166/97 H 158/67 H 135/63 Pulse Oximetry 97 95 11/02/18 05:52 11/02/18 06:34 11/02/18 06:41 Temperature Pulse Rate 64 68 63 Respiratory Rate 31 H Blood Pressure 157/70 H Pulse Oximetry 95 88 L 11/02/18 07:00 11/02/18 07:01 11/02/18 07:29 Temperature Pulse Rate 68 73 66 Respiratory Rate 21 49 H 16 Blood Pressure 193/76 H 176/74 H Pulse Oximetry 92 L 93 L 93 L 11/02/18 07:40 11/02/18 08:00 11/02/18 08:01 Temperature Pulse Rate 66 65 65 Respiratory Rate 18 17 Blood Pressure 192/79 H Pulse Oximetry 93 L 94 L 11/02/18 08:44 11/02/18 08:52 11/02/18 09:00 Temperature Pulse Rate 74 72 77 Respiratory Rate 29 H 38 H 29 H Blood Pressure 222/87 H 218/86 H 209/85 H Pulse Oximetry 93 L 90 L 93 L 11/02/18 09:09 11/02/18 09:21 11/02/18 09:41 Temperature Pulse Rate 71 72 70 Respiratory Rate 26 H 39 H 22 Blood Pressure 176/74 H 165/71 H 160/68 H Pulse Oximetry 93 L 92 L 92 L 11/02/18 10:00 11/02/18 10:01 11/02/18 10:11 Temperature Pulse Rate 67 67 72 Respiratory Rate 15 19 Blood Pressure 144/65 H Pulse Oximetry 91 L 92 L 11/02/18 10:14 11/02/18 10:21 11/02/18 10:40 Temperature Pulse Rate 64 75 Respiratory Rate 18 16 Blood Pressure 136/60 160/69 H Pulse Oximetry 92 L 96 96 11/02/18 11:00 11/02/18 11:01 11/02/18 11:21 Temperature Pulse Rate 65 64 78 Respiratory Rate 21 18 18 Blood Pressure 141/63 H 175/70 H Pulse Oximetry 97 97 96 11/02/18 11:41 11/02/18 12:00 11/02/18 12:10 Temperature Pulse Rate 66 93 H 72 Respiratory Rate 12 15 Blood Pressure 169/67 H Pulse Oximetry 95 87 L 11/02/18 12:53 11/02/18 13:00 11/02/18 13:21 Temperature Pulse Rate 74 82 79 Respiratory Rate 18 39 H 26 H Blood Pressure 175/74 H 171/73 H 149/63 H Pulse Oximetry 93 L 92 L 93 L 11/02/18 13:36 11/02/18 13:40 11/02/18 13:53 Temperature 98.4 F 98.5 F Pulse Rate 70 73 76 Respiratory Rate 20 15 25 H Blood Pressure 149/63 H 155/68 H 155/65 H Pulse Oximetry 92 L 94 L 93 L 11/02/18 14:00 11/02/18 14:20 11/02/18 14:27 Temperature 98.7 F Pulse Rate 76 72 69 Respiratory Rate 25 H 24 Blood Pressure 155/65 H 166/70 H Pulse Oximetry 93 L 92 L 11/02/18 14:40 11/02/18 15:00 11/02/18 15:01 Temperature Pulse Rate 71 75 73 Respiratory Rate 13 29 H 37 H Blood Pressure 172/71 H 177/74 H Pulse Oximetry 91 L 89 L 90 L 11/02/18 15:21 11/02/18 15:41 11/02/18 16:00 Temperature 98.1 F Pulse Rate 70 70 66 Respiratory Rate 18 18 13 Blood Pressure 178/72 H 171/71 H 177/72 H Pulse Oximetry 91 L 93 L 93 L 11/02/18 16:20 11/02/18 16:29 11/02/18 16:41 Temperature 98.5 F Pulse Rate 76 77 71 Respiratory Rate 20 28 H 16 Blood Pressure 188/77 H 188/77 H 179/72 H Pulse Oximetry 93 L 93 L 91 L 11/02/18 16:44 11/02/18 16:47 11/02/18 17:00 Temperature 98.7 F Pulse Rate 82 73 76 Respiratory Rate 18 19 Blood Pressure 179/72 H Pulse Oximetry 91 L 88 L 11/02/18 17:01 11/02/18 17:20 11/02/18 18:00 Temperature Pulse Rate 72 73 78 Respiratory Rate 16 17 26 H Blood Pressure 169/73 H 188/75 H Pulse Oximetry 88 L 93 L 94 L Intake & Output 11/02/18 11/02/18 11/03/18 06:59 18:59 06:59 Intake Total 100 / 100 690 / 690 0 / 0 Output Total 1500 / 1500 Balance 100 / 100 -810 / -810 0 / 0 Weight 134.2 kg 134.7 kg Intake: IV 100 / 100 Oral 690 / 690 Intake (Blood Product) Amt 0 / 0 0 / 0 Rbc As-3 Leukoreduced Unit 0 / 0 [id number] Rbc As-3 Leukoreduced Unit 0 / 0 0 / 0 [id number] Output: Urine 1500 / 1500 Other: # Voids 3 Date of Last Bowel Movement 10/31/18 Weight On Admission 134.7 kg <Satya Mendes - Last Filed: 11/02/18 21:22> Assessment and Plan - Assessment (1) Acute on chronic kidney failure Code(s): N17.9 - Acute kidney failure, unspecified; N18.9 - Chronic kidney disease, unspecified Status: Acute (2) Dyspnea on exertion Code(s): R06.09 - Other forms of dyspnea Status: Acute (3) Congestive heart failure Code(s): I50.9 - Heart failure, unspecified Status: Acute (4) Diabetes Code(s): E11.9 - Type 2 diabetes mellitus without complications Status: Acute - Plan Acute on chronic kidney disease Has advanced stage IV renal disease most likely from hypertension or diabetes Serology negative. Presented in fluid overload status. AVF in Left arm not mature as of yet. Creatinine 3.25 ->3.31 SPEP pending Avoid nephrotoxins. Continue Bumex 2 mg BID Will follow urinary output and BMP Will continue to monitor only slight bump in creatinine and shortness of breath has improved some May need hemodialysis with permacath with kidney function worsens has some signs of uremia Hypertension Labile. On coreg, clonidine, and hydralazine. Clonidine can be increased if needed. PRN available. Anemia Procrit has been given. Most likely of chronic disease but also has leukocytosis. Being transfused PRBC. HGB at 7.4 Diabetes On insulin. Maintain blood sugar between 140 and 180 mg/dl while hospitalized. <Zulma Iverson - Last Filed: 11/02/18 15:34> - Assessment (1) Acute on chronic kidney failure Code(s): N17.9 - Acute kidney failure, unspecified; N18.9 - Chronic kidney disease, unspecified Status: Acute (2) Dyspnea on exertion Code(s): R06.09 - Other forms of dyspnea Status: Acute (3) Congestive heart failure Code(s): I50.9 - Heart failure, unspecified Status: Acute (4) Diabetes Code(s): E11.9 - Type 2 diabetes mellitus without complications Status: Acute - Plan Patient seen and examined, agree with above. Hgb. low, getting transfusion. Continue Bumex. Creatinine remain elevated. May need HD. <Satya Mendes - Last Filed: 11/02/18 21:22>
[2018-11-02] MEDS: Umeclindinium 62.5 MCG/Vilanterol 25 MCG Inhaler INH SCH (16:15)
--- NOTE | 2018-11-02 17:32 | ECG ---
Date Performed: 11/01/2018 Time Performed: 12:31:19 PTAGE: 58 years EKG: Sinus rhythm MODERATE ST DEPRESSION CONSIDER ANTEROLATERAL ISCHEMIA ABNORMAL ECG NO PREVIOUS TRACING DOCTOR: Corey Schroeder Interpretating Date/Time 11/02/2018 17:31:30
[2018-11-02] MEDS: Acetaminophen 325 MG Tablet PO PRN (17:45)
[2018-11-02] MEDS: Gabapentin 100 MG Capsule PO SCH (20:21)
[2018-11-02 21:06] LABS: Hematocrit 28.7 % (35.0-46.0); Hemoglobin 9.4 gm/dL (11.6-15.3)
[2018-11-03] MEDS: Insulin NovoLOG Aspart Correctional Sugar Inj SQ SCH ×5 (03:21→23:21)
[2018-11-03] MEDS ORDERED: Chlorhexidine Gluconate 2% 1 Pack (2 Cloths) TOPICAL PRN (04:00)
[2018-11-03 06:00] LABS: Hematocrit 28.8 % (35.0-46.0); Hemoglobin 9.3 gm/dL (11.6-15.3); Mean Corpuscular HGB Conc 32.5 % (32.0-36.0); Mean Corpuscular Volume 89.4 fL (80.0-100.0); Platelet Count 352 th/mm3 (150-450); Red Blood Count 3.22 mil/mm3 (4.00-5.30); Red Cell Distribution Width 16.7 % (11.6-17.2); White Blood Count 43.1 th/mm3 (4.0-11.0)
[2018-11-03 06:09] LABS: Calcium 8.2 mg/dL (8.5-10.1); Potassium 3.7 meq/L (3.5-5.1)
[2018-11-03 07:05] LABS: Lymphocytes 5 % (9-44); Metamyelocytes 1 % (0-1); Monocytes 9 % (0-8); Myelocytes 9 % (0-0); Promyelocyte 1 % (0-0)
[2018-11-03 07:06] LABS: Platelet Estimate Normal (Normal)
[2018-11-03 07:07] LABS: Platelet Morphology Normal (Normal)
[2018-11-03] MEDS: Carvedilol 12.5 MG Tablet PO SCH ×2 (08:36→20:33)
[2018-11-03] MEDS: amLODIPine 10 MG Tablet PO SCH (08:36)
[2018-11-03] MEDS: Senna/Docusate Sodium 8.6/50 MG Tablet PO SCH ×2 (08:36→20:34)
[2018-11-03] MEDS: Heparin - SQ 10,000 UNITS/ML Vial SQ SCH ×3 (08:36→23:21)
[2018-11-03] MEDS: Citalopram 20 MG Tablet PO SCH (08:36)
[2018-11-03] MEDS: Famotidine 20 MG Tablet PO SCH ×2 (08:36→20:34)
[2018-11-03] MEDS: Insulin Detemir Inj 1,000 UNIT/10 ML Vial SQ SCH ×2 (08:39→23:20)
[2018-11-03] MEDS: predniSONE 1 MG Tablet PO SCH (08:46)
--- NOTE | 2018-11-03 11:19 | P.PNNP ---
Subjective Interval history: Resting comfortably in bed. Slept well last night. Shortness of breath improving. Creatinine is at 3.10 today with good urinary output. <Zulma Iverson - Last Filed: 11/03/18 11:12> Physical Exam Vital signs: Vital Signs 11/02/18 11:21 11/02/18 11:41 11/02/18 12:00 Temperature Pulse Rate 78 66 93 H Respiratory Rate 18 12 15 Blood Pressure 175/70 H 169/67 H Pulse Oximetry 96 95 87 L 11/02/18 12:10 11/02/18 12:53 11/02/18 13:00 Temperature Pulse Rate 72 74 82 Respiratory Rate 18 39 H Blood Pressure 175/74 H 171/73 H Pulse Oximetry 93 L 92 L 11/02/18 13:21 11/02/18 13:36 11/02/18 13:40 Temperature 98.4 F Pulse Rate 79 70 73 Respiratory Rate 26 H 20 15 Blood Pressure 149/63 H 149/63 H 155/68 H Pulse Oximetry 93 L 92 L 94 L 11/02/18 13:53 11/02/18 14:00 11/02/18 14:20 Temperature 98.5 F 98.7 F Pulse Rate 76 76 72 Respiratory Rate 25 H 25 H 24 Blood Pressure 155/65 H 155/65 H 166/70 H Pulse Oximetry 93 L 93 L 92 L 11/02/18 14:27 11/02/18 14:40 11/02/18 15:00 Temperature Pulse Rate 69 71 75 Respiratory Rate 13 29 H Blood Pressure 172/71 H Pulse Oximetry 91 L 89 L 11/02/18 15:01 11/02/18 15:21 11/02/18 15:41 Temperature Pulse Rate 73 70 70 Respiratory Rate 37 H 18 18 Blood Pressure 177/74 H 178/72 H 171/71 H Pulse Oximetry 90 L 91 L 93 L 11/02/18 16:00 11/02/18 16:20 11/02/18 16:29 Temperature 98.1 F 98.5 F Pulse Rate 66 76 77 Respiratory Rate 13 20 28 H Blood Pressure 177/72 H 188/77 H 188/77 H Pulse Oximetry 93 L 93 L 93 L 11/02/18 16:41 11/02/18 16:44 11/02/18 16:47 Temperature 98.7 F Pulse Rate 71 82 73 Respiratory Rate 16 18 Blood Pressure 179/72 H 179/72 H Pulse Oximetry 91 L 91 L 11/02/18 17:00 11/02/18 17:01 11/02/18 17:20 Temperature Pulse Rate 76 72 73 Respiratory Rate 19 16 17 Blood Pressure 169/73 H 188/75 H Pulse Oximetry 88 L 88 L 93 L 11/02/18 18:00 11/02/18 19:00 11/02/18 19:20 Temperature Pulse Rate 78 77 74 Respiratory Rate 26 H 33 H 19 Blood Pressure 175/71 H 181/73 H Pulse Oximetry 94 L 92 L 92 L 11/02/18 19:41 11/02/18 20:00 11/02/18 20:21 Temperature 98.4 F Pulse Rate 74 75 77 Respiratory Rate 42 H 18 18 Blood Pressure 177/70 H 181/75 H 186/73 H Pulse Oximetry 93 L 92 L 92 L 11/02/18 20:41 11/02/18 21:00 11/02/18 21:01 Temperature Pulse Rate 73 64 63 Respiratory Rate 19 15 15 Blood Pressure 177/72 H 170/71 H Pulse Oximetry 92 L 93 L 93 L 11/02/18 21:21 11/02/18 21:41 11/02/18 22:00 Temperature Pulse Rate 65 68 80 Respiratory Rate 24 0 L 17 Blood Pressure 169/70 H 158/70 H Pulse Oximetry 95 96 96 11/02/18 23:00 11/02/18 23:45 11/02/18 23:49 Temperature 97.7 F Pulse Rate 69 76 Respiratory Rate 18 Blood Pressure 169/72 H Pulse Oximetry 96 94 L 11/03/18 02:00 11/03/18 03:00 11/03/18 04:00 Temperature 98.2 F Pulse Rate 64 69 64 Respiratory Rate 18 Blood Pressure 196/81 H Pulse Oximetry 96 11/03/18 04:38 11/03/18 06:00 11/03/18 07:00 Temperature Pulse Rate 74 65 Respiratory Rate Blood Pressure 160/69 H Pulse Oximetry 11/03/18 08:00 Temperature 98.2 F Pulse Rate 75 Respiratory Rate 20 Blood Pressure 167/80 H Pulse Oximetry 91 L Intake & Output 11/02/18 11/03/18 11/03/18 18:59 06:59 18:59 Intake Total 690 / 690 340 / 340 Output Total 1500 / 1500 Balance -810 / -810 340 / 340 Weight 134.7 kg 136 kg Intake: IV 90 / 90 NS Inj 250 ML @ 15 mls/hr IV. 90 / 90 SIG ONCE LAXMI Rx#:[id number] Oral 690 / 690 250 / 250 Intake (Blood Product) Amt 0 / 0 0 / 0 Rbc As-3 Leukoreduced Unit 0 / 0 [id number] Rbc As-3 Leukoreduced Unit 0 / 0 0 / 0 [id number] Output: Urine 1500 / 1500 Other: # Voids 3 2 Date of Last Bowel Movement 10/31/18 11/03/18 Narrative: General: Alert and oriented. In no acute distress. Neck: Trachea midline.No JVD Respiratory: Normal respiratory effort, some crackles at the bases, good air movement Cardiovascular: Regular rate and rhythm with soft systolic murmur. Left AVF positive thrill and bruit. Abdomen: Bowel sounds present. Soft, non-tender. No masses noted. +BS Psychiatric: Alert and oriented. Normal affect. <Zulma Iverson - Last Filed: 11/03/18 11:12> Assessment and Plan - Assessment (1) Acute on chronic kidney failure Code(s): N17.9 - Acute kidney failure, unspecified; N18.9 - Chronic kidney disease, unspecified Status: Acute (2) Dyspnea on exertion Code(s): R06.09 - Other forms of dyspnea Status: Acute (3) Congestive heart failure Code(s): I50.9 - Heart failure, unspecified Status: Acute (4) Diabetes Code(s): E11.9 - Type 2 diabetes mellitus without complications Status: Acute - Plan Acute on chronic kidney disease Has advanced stage IV renal disease most likely from hypertension or diabetes Serology negative. Presented in fluid overload status. AVF in Left arm not mature as of yet. Creatinine 3.25 ->3.31 ->3.10 Non oliguric SPEP pending Avoid nephrotoxins. Continue Bumex 2 mg BID. Creatinine has remained stable with diuresis will continue May need hemodialysis with permacath if kidney function worsens or shows signs of uremia hoping to wait until AVF is mature. Metolazone added and fluid restriction. Hypertension Elevated. On coreg, clonidine, amlodipine, and hydralazine. Amlodipine added. Anemia Procrit has been given. Most likely of chronic disease but also has leukocytosis. HGB improved after transfusion at 9.3 Diabetes On insulin. Maintain blood sugar between 140 and 180 mg/dl while hospitalized. <Zulma Iverson - Last Filed: 11/03/18 11:12> - Assessment (1) Acute on chronic kidney failure Code(s): N17.9 - Acute kidney failure, unspecified; N18.9 - Chronic kidney disease, unspecified Status: Acute (2) Dyspnea on exertion Code(s): R06.09 - Other forms of dyspnea Status: Acute (3) Congestive heart failure Code(s): I50.9 - Heart failure, unspecified Status: Chronic (4) Diabetes Code(s): E11.9 - Type 2 diabetes mellitus without complications Status: Acute - Plan Patient seen and examined, agree with above. Patient with advance stage 4 chronic kidney disease. Continue Bumex, try to keep in negative fluid balance. No urgent need for Dialysis. <Satya Mendes - Last Filed: 11/06/18 22:07>
[2018-11-03] MEDS: Loratadine 10 MG Tablet PO SCH (11:52)
--- NOTE | 2018-11-03 11:55 | P.PNFP ---
Subjective Interval history: No acute events overnight. Patient states that she feels better s/p 2 units of PRBC Is able to walk around with her walker Currently on 4 L NC. States that she has chronic "swishing sound in her ear and can hear her heartbeat" Creatinine has improved from 3.25 to 3.10 Denies CP, SOB, N/V, and abdominal pain. <Consuelo Kirkpatrick T - 11/03/18 14:37> Results - Labs Result diagrams: 11/04/18 04:26 11/04/18 04:26 <LillianGissel M - 11/05/18 14:47> Abnormal lab results 11/04/18 Range/Units 17:05 POC Glucose 303 H (68-110) mg/dl <Gissel Snyder - 11/05/18 14:47> Abnormal lab results 11/02/18 11/02/18 11/02/18 Range/Units 10:42 12:37 17:42 WBC (4.0-11.0) th/mm3 RBC (4.00-5.30) mil/mm3 Hgb (11.6-15.3) gm/dL Hct (35.0-46.0) % Seg Neuts % (Manual) (16-70) % Lymphocytes % (Manual) (9-44) % Monocytes % (Manual) (0-8) % Myelocytes % (Man) (0-0) % Promyelocytes % (Man) (0-0) % Abs Neuts (Manual) (1.8-7.7) th/mm3 Polychromasia (0.0-1.9) % Keratocytes (None) BUN (7-18) mg/dL Creatinine (0.50-1.00) mg/dL Estimated GFR (>89) mL/min POC Glucose 309 H 218 H (68-110) mg/dl Random Glucose (74-106) mg/dL Calcium (8.5-10.1) mg/dL MTS Gel Crossmatch See Detail 11/02/18 11/02/18 11/03/18 Range/Units 20:15 20:39 03:20 WBC (4.0-11.0) th/mm3 RBC (4.00-5.30) mil/mm3 Hgb 9.4 L D (11.6-15.3) gm/dL Hct 28.7 L (35.0-46.0) % Seg Neuts % (Manual) (16-70) % Lymphocytes % (Manual) (9-44) % Monocytes % (Manual) (0-8) % Myelocytes % (Man) (0-0) % Promyelocytes % (Man) (0-0) % Abs Neuts (Manual) (1.8-7.7) th/mm3 Polychromasia (0.0-1.9) % Keratocytes (None) BUN (7-18) mg/dL Creatinine (0.50-1.00) mg/dL Estimated GFR (>89) mL/min POC Glucose 234 H 196 H (68-110) mg/dl Random Glucose (74-106) mg/dL Calcium (8.5-10.1) mg/dL MTS Gel Crossmatch 11/03/18 11/03/18 11/03/18 Range/Units 04:56 04:56 07:45 WBC 43.1 H (4.0-11.0) th/mm3 RBC 3.22 L (4.00-5.30) mil/mm3 Hgb 9.3 L (11.6-15.3) gm/dL Hct 28.8 L (35.0-46.0) % Seg Neuts % (Manual) 72 H (16-70) % Lymphocytes % (Manual) 5 L (9-44) % Monocytes % (Manual) 9 H (0-8) % Myelocytes % (Man) 9 H (0-0) % Promyelocytes % (Man) 1 H (0-0) % Abs Neuts (Manual) 37.1 H (1.8-7.7) th/mm3 Polychromasia 2.0 H (0.0-1.9) % Keratocytes Occ H (None) BUN 41 H (7-18) mg/dL Creatinine 3.10 H (0.50-1.00) mg/dL Estimated GFR 15 L (>89) mL/min POC Glucose 213 H (68-110) mg/dl Random Glucose 176 H (74-106) mg/dL Calcium 8.2 L (8.5-10.1) mg/dL MTS Gel Crossmatch 11/03/18 Range/Units 11:49 WBC (4.0-11.0) th/mm3 RBC (4.00-5.30) mil/mm3 Hgb (11.6-15.3) gm/dL Hct (35.0-46.0) % Seg Neuts % (Manual) (16-70) % Lymphocytes % (Manual) (9-44) % Monocytes % (Manual) (0-8) % Myelocytes % (Man) (0-0) % Promyelocytes % (Man) (0-0) % Abs Neuts (Manual) (1.8-7.7) th/mm3 Polychromasia (0.0-1.9) % Keratocytes (None) BUN (7-18) mg/dL Creatinine (0.50-1.00) mg/dL Estimated GFR (>89) mL/min POC Glucose 422 H (68-110) mg/dl Random Glucose (74-106) mg/dL Calcium (8.5-10.1) mg/dL MTS Gel Crossmatch Short CBC 11/02/18 11/03/18 Range/Units 20:15 04:56 WBC 43.1 H (4.0-11.0) th/mm3 Hgb 9.4 L D 9.3 L (11.6-15.3) gm/dL Hct 28.7 L 28.8 L (35.0-46.0) % Plt Count 352 (150-450) th/mm3 BMP 11/03/18 04:56 Sodium 143 Potassium 3.7 Chloride 107 Carbon Dioxide 27.0 BUN 41 H Creatinine 3.10 H Calcium 8.2 L <Consuelo Kirkpatrick T - 11/03/18 11:55> Physical Exam Vital signs: Vital Signs 11/04/18 15:00 11/04/18 16:00 11/04/18 19:00 Temperature 98.2 F Pulse Rate 70 72 70 Respiratory Rate 18 Blood Pressure 177/76 H Pulse Oximetry 92 L 11/04/18 20:00 11/04/18 21:00 11/04/18 22:00 Temperature 98.1 F Pulse Rate 68 71 69 Respiratory Rate 20 Blood Pressure 205/85 H Pulse Oximetry 97 Intake & Output 11/04/18 11/05/18 11/05/18 18:59 06:59 18:59 Intake Total 960 / 960 Output Total 1000 / 1000 Balance -40 / -40 Intake: Oral 960 / 960 Output: Urine 1000 / 1000 Other: Date of Last Bowel Movement 11/03/18 11/03/18 <Gissel Snyder M - 11/05/18 14:47> Vital Signs 11/02/18 12:00 11/02/18 12:10 11/02/18 12:53 Temperature Pulse Rate 93 H 72 74 Respiratory Rate 15 18 Blood Pressure 175/74 H Pulse Oximetry 87 L 93 L 11/02/18 13:00 11/02/18 13:21 11/02/18 13:36 Temperature 98.4 F Pulse Rate 82 79 70 Respiratory Rate 39 H 26 H 20 Blood Pressure 171/73 H 149/63 H 149/63 H Pulse Oximetry 92 L 93 L 92 L 11/02/18 13:40 11/02/18 13:53 11/02/18 14:00 Temperature 98.5 F 98.7 F Pulse Rate 73 76 76 Respiratory Rate 15 25 H 25 H Blood Pressure 155/68 H 155/65 H 155/65 H Pulse Oximetry 94 L 93 L 93 L 11/02/18 14:20 11/02/18 14:27 11/02/18 14:40 Temperature Pulse Rate 72 69 71 Respiratory Rate 24 13 Blood Pressure 166/70 H 172/71 H Pulse Oximetry 92 L 91 L 11/02/18 15:00 11/02/18 15:01 11/02/18 15:21 Temperature Pulse Rate 75 73 70 Respiratory Rate 29 H 37 H 18 Blood Pressure 177/74 H 178/72 H Pulse Oximetry 89 L 90 L 91 L 11/02/18 15:41 11/02/18 16:00 11/02/18 16:20 Temperature 98.1 F Pulse Rate 70 66 76 Respiratory Rate 18 13 20 Blood Pressure 171/71 H 177/72 H 188/77 H Pulse Oximetry 93 L 93 L 93 L 11/02/18 16:29 11/02/18 16:41 11/02/18 16:44 Temperature 98.5 F 98.7 F Pulse Rate 77 71 82 Respiratory Rate 28 H 16 18 Blood Pressure 188/77 H 179/72 H 179/72 H Pulse Oximetry 93 L 91 L 91 L 11/02/18 16:47 11/02/18 17:00 11/02/18 17:01 Temperature Pulse Rate 73 76 72 Respiratory Rate 19 16 Blood Pressure 169/73 H Pulse Oximetry 88 L 88 L 11/02/18 17:20 11/02/18 18:00 11/02/18 19:00 Temperature Pulse Rate 73 78 77 Respiratory Rate 17 26 H 33 H Blood Pressure 188/75 H 175/71 H Pulse Oximetry 93 L 94 L 92 L 11/02/18 19:20 11/02/18 19:41 11/02/18 20:00 Temperature 98.4 F Pulse Rate 74 74 75 Respiratory Rate 19 42 H 18 Blood Pressure 181/73 H 177/70 H 181/75 H Pulse Oximetry 92 L 93 L 92 L 11/02/18 20:21 11/02/18 20:41 11/02/18 21:00 Temperature Pulse Rate 77 73 64 Respiratory Rate 18 19 15 Blood Pressure 186/73 H 177/72 H Pulse Oximetry 92 L 92 L 93 L 11/02/18 21:01 11/02/18 21:21 11/02/18 21:41 Temperature Pulse Rate 63 65 68 Respiratory Rate 15 24 0 L Blood Pressure 170/71 H 169/70 H 158/70 H Pulse Oximetry 93 L 95 96 11/02/18 22:00 11/02/18 23:00 11/02/18 23:45 Temperature 97.7 F Pulse Rate 80 69 76 Respiratory Rate 17 18 Blood Pressure 169/72 H Pulse Oximetry 96 96 11/02/18 23:49 11/03/18 02:00 11/03/18 03:00 Temperature Pulse Rate 64 69 Respiratory Rate Blood Pressure Pulse Oximetry 94 L 11/03/18 04:00 11/03/18 04:38 11/03/18 06:00 Temperature 98.2 F Pulse Rate 64 74 Respiratory Rate 18 Blood Pressure 196/81 H 160/69 H Pulse Oximetry 96 11/03/18 07:00 11/03/18 08:00 Temperature 98.2 F Pulse Rate 65 75 Respiratory Rate 20 Blood Pressure 167/80 H Pulse Oximetry 91 L Intake & Output 11/02/18 11/03/18 11/03/18 18:59 06:59 18:59 Intake Total 690 / 690 340 / 340 Output Total 1500 / 1500 Balance -810 / -810 340 / 340 Weight 134.7 kg 136 kg Intake: IV 90 / 90 NS Inj 250 ML @ 15 mls/hr IV. 90 / 90 SIG ONCE LAXMI Rx#:[id number] Oral 690 / 690 250 / 250 Intake (Blood Product) Amt 0 / 0 0 / 0 Rbc As-3 Leukoreduced Unit 0 / 0 [id number] Rbc As-3 Leukoreduced Unit 0 / 0 0 / 0 [id number] Output: Urine 1500 / 1500 Other: # Voids 3 2 Date of Last Bowel Movement 10/31/18 11/03/18 <Consuelo Kirkpatrick - 11/03/18 11:55> Narrative: General: Alert and oriented. In no acute distress. Neck: Trachea midline.No JVD Respiratory: Normal respiratory effort, CTAB, no wheezes or crackles Cardiovascular: Regular rate and rhythm Abdomen: Bowel sounds present. Soft, non-tender. No masses noted. +BS Psychiatric: Alert and oriented. Normal affect. <Consuelo Kirpkatrick - 11/03/18 14:37> Assessment and Plan - Assessment (1) Leukocytosis Code(s): D72.829 - Elevated white blood cell count, unspecified Status: Acute (2) Congestive heart failure Code(s): I50.9 - Heart failure, unspecified Status: Acute (3) ESRD (end stage renal disease) Code(s): N18.6 - End stage renal disease Status: Acute (4) Diabetes Code(s): E11.9 - Type 2 diabetes mellitus without complications Status: Acute (5) Acute on chronic kidney failure Code(s): N17.9 - Acute kidney failure, unspecified; N18.9 - Chronic kidney disease, unspecified Status: Acute (6) Elevated troponin Code(s): R74.8 - Abnormal levels of other serum enzymes Status: Acute (7) Hypertensive emergency Code(s): I16.1 - Hypertensive emergency Status: Acute <Gissel Snyder - 11/05/18 14:47> (1) Leukocytosis Code(s): D72.829 - Elevated white blood cell count, unspecified Status: Acute (2) Congestive heart failure Code(s): I50.9 - Heart failure, unspecified Status: Acute (3) ESRD (end stage renal disease) Code(s): N18.6 - End stage renal disease Status: Acute (4) Diabetes Code(s): E11.9 - Type 2 diabetes mellitus without complications Status: Acute (5) Acute on chronic kidney failure Code(s): N17.9 - Acute kidney failure, unspecified; N18.9 - Chronic kidney disease, unspecified Status: Acute (6) Elevated troponin Code(s): R74.8 - Abnormal levels of other serum enzymes Status: Acute (7) Hypertensive emergency Code(s): I16.1 - Hypertensive emergency Status: Acute <Consuelo Kirkpatrick T - 11/03/18 14:23> - Assessment and Plan She is a 58-year-old female with a past medical history significant for CHF and ESRD who presented with shortness of breath on minimal exertion. Renal: History of ESRD. -Improving, Cr 3.10 today -Dr. Mendes consulted, appreciated recommendations -Continue Bumex 2mg BID -May need HD with permcath if kidney function worsens -Fluid restriction -Metolazone added today -Avoid nephrotoxins Cardiovascular: Symptoms most likely related to fluid overload from her ESRD. EKG showed a mild ST depression in V5 and V6. Troponin stable. -s/p 2 units of PRBC on 11/02/18 -Clonidine as needed for BP > 180/110 -Continue home HTN meds (amlodipine, carvedilol, clonidine, Lasix, hydralazine) -Continue home medication Lipitor Respiratory: She had O2 sats in the mid 80's on RA on arrival. It improved to mid 90's with 4.5 L via NC. This may be related to hypertensive emergency or fluid overload from her ESRD. Treatment as above. At home she is on Anoro-Ellipta for her COPD. We will continue this if able to get it in the hospital, otherwise will substitute with a different inhaler/ nebulizer Endocrine: History of diabetes treated with 70/30 at home (112 units daily + SSI ) -Levemir 20 units twice daily ACHS & 3AM medium dose sliding scale insulin, will consider adjusting to high dose if needed Continue home medication gabapentin for neuropathy 200 mg p.o. at bedtime Neurologic/psychiatric: Continue home medications Celexa 20 mg p.o. daily Continue home medication Benadryl 25 mg p.o. at bedtime for sleep Infectious Disease / Hematologic: She has a white blood cell count of 47,000. 89% neutrophils and 10% metamyelocytes. From chart review she has had some leukocytosis since November of last year, however it continues to rise and this is a 14k jump from a month and 4 days ago. While it is possible that this represents an infectious process superimposing an oncologic process, she has little clinical signs of serious infection. She has been afebrile with normal heart rate. She did have mild tachypnea, but this is better explained by her pulmonary edema. -Serum protein electrophoresis per nephro -We will consider hematology consultation when her hypertensive emergency is resolved -We will consider antibiotics if she clinically deteriorates Fluids: none Electrolytes: monitor and replete with caution Nutrition: Renal and diabetic diet GI prophylaxis: not indicated: Continue home medication Pepcid 10 mg p.o. twice daily VTE prophylaxis: Heparin 5000 units every 8 hours <Consuelo Kirkpatrick - 11/03/18 14:37> - Attending Attestation The exam, history, and the medical decision-making described in the above note were completed with the assistance of the resident physician. I reviewed and agree with the findings presented. I attest that I had a [id number] encounter with the patient on the same day, and personally performed and documented my assessment and findings in the medical record. she is well after her blood transfusion with an increased ability to move and less SOB <Gissel Snyder - 11/05/18 14:47>
[2018-11-03] MEDS: Umeclindinium 62.5 MCG/Vilanterol 25 MCG Inhaler INH SCH (15:10)
[2018-11-03] MEDS: Gabapentin 100 MG Capsule PO SCH (20:38)
[2018-11-03] MEDS: Chlorhexidine Gluconate 2% 1 Pack (2 Cloths) TOPICAL SCH (23:25)
[2018-11-04] MEDS: Insulin NovoLOG Aspart Correctional Sugar Inj SQ SCH ×5 (03:59→22:04)
[2018-11-04] MEDS: Chlorhexidine Gluconate 2% 1 Pack (2 Cloths) TOPICAL SCH (04:00)
[2018-11-04 05:11] LABS: Hemoglobin 8.8 gm/dL (11.6-15.3); Mean Corpuscular HGB Conc 32.6 % (32.0-36.0); Mean Corpuscular Hemoglobin 29.6 pg (27.0-34.0); Mean Corpuscular Volume 90.7 fL (80.0-100.0); Mean Platelet Volume 7.7 fL (7.0-11.0); Platelet Count 339 th/mm3 (150-450); Red Blood Count 2.98 mil/mm3 (4.00-5.30); Red Cell Distribution Width 16.4 % (11.6-17.2); White Blood Count 43.2 th/mm3 (4.0-11.0)
[2018-11-04 05:29] LABS: Calcium 8.2 mg/dL (8.5-10.1); Carbon Dioxide 29.2 meq/L (21.0-32.0); Potassium 3.6 meq/L (3.5-5.1)
[2018-11-04 08:12] LABS: Eosinophils 5 % (0-4); Metamyelocytes 4 % (0-1); Monocytes 1 % (0-8); Myelocytes 7 % (0-0); Promyelocyte 1 % (0-0)
[2018-11-04 08:13] LABS: Platelet Estimate Normal (Normal); Platelet Morphology Normal (Normal)
[2018-11-04] MEDS: Heparin - SQ 10,000 UNITS/ML Vial SQ SCH ×2 (09:04→15:11)
[2018-11-04] MEDS: Famotidine 20 MG Tablet PO SCH ×2 (09:05→22:05)
[2018-11-04] MEDS: predniSONE 1 MG Tablet PO SCH (09:05)
[2018-11-04] MEDS: amLODIPine 10 MG Tablet PO SCH (09:06)
[2018-11-04] MEDS: Loratadine 10 MG Tablet PO SCH (09:06)
[2018-11-04] MEDS: Carvedilol 12.5 MG Tablet PO SCH ×2 (09:06→20:03)
[2018-11-04] MEDS: Citalopram 20 MG Tablet PO SCH (09:06)
[2018-11-04] MEDS: Senna/Docusate Sodium 8.6/50 MG Tablet PO SCH ×2 (09:06→22:05)
[2018-11-04] MEDS: Insulin Detemir Inj 1,000 UNIT/10 ML Vial SQ SCH ×3 (09:07→22:04)
--- NOTE | 2018-11-04 09:22 | P.PNFP ---
Subjective Interval history: No acute events overnight. She has no new complaints today She is able to walk to the bathroom with a walker Still on 4 L via nasal cannula, was sleeping when I walked in the room and snores heavily States that she has had a sleep study for which was negative Denies shortness of breath, nausea, vomiting, chest pain, palpitations, abdominal pain <Dangelo Carter Clayton - 11/04/18 10:22> Results - Labs Result diagrams: 11/04/18 04:26 11/04/18 04:26 <Gissel Snyder - 11/05/18 14:48> Abnormal lab results 11/04/18 Range/Units 17:05 POC Glucose 303 H (68-110) mg/dl <Gissel Snyder - 11/05/18 14:48> Abnormal lab results 11/03/18 11/03/18 11/03/18 Range/Units 11:49 16:58 21:05 WBC (4.0-11.0) th/mm3 RBC (4.00-5.30) mil/mm3 Hgb (11.6-15.3) gm/dL Hct (35.0-46.0) % Band Neuts % (Manual) (0-6) % Eosinophils % (Manual) (0-4) % Metamyelocytes % (Man) (0-1) % Myelocytes % (Man) (0-0) % Promyelocytes % (Man) (0-0) % Abs Neuts (Manual) (1.8-7.7) th/mm3 BUN (7-18) mg/dL Creatinine (0.50-1.00) mg/dL Estimated GFR (>89) mL/min POC Glucose 422 H 309 H 211 H (68-110) mg/dl Random Glucose (74-106) mg/dL Calcium (8.5-10.1) mg/dL 11/04/18 11/04/18 11/04/18 Range/Units 03:54 04:26 04:26 WBC 43.2 H (4.0-11.0) th/mm3 RBC 2.98 L (4.00-5.30) mil/mm3 Hgb 8.8 L (11.6-15.3) gm/dL Hct 27.0 L (35.0-46.0) % Band Neuts % (Manual) 13 H (0-6) % Eosinophils % (Manual) 5 H (0-4) % Metamyelocytes % (Man) 4 H (0-1) % Myelocytes % (Man) 7 H (0-0) % Promyelocytes % (Man) 1 H (0-0) % Abs Neuts (Manual) 39.7 H (1.8-7.7) th/mm3 BUN 42 H (7-18) mg/dL Creatinine 3.14 H (0.50-1.00) mg/dL Estimated GFR 15 L (>89) mL/min POC Glucose 209 H (68-110) mg/dl Random Glucose 180 H (74-106) mg/dL Calcium 8.2 L (8.5-10.1) mg/dL Short CBC 11/04/18 Range/Units 04:26 WBC 43.2 H (4.0-11.0) th/mm3 Hgb 8.8 L (11.6-15.3) gm/dL Hct 27.0 L (35.0-46.0) % Plt Count 339 (150-450) th/mm3 BMP 11/04/18 04:26 Sodium 142 Potassium 3.6 Chloride 105 Carbon Dioxide 29.2 BUN 42 H Creatinine 3.14 H Calcium 8.2 L <Carter Doty - 11/04/18 09:22> Physical Exam Vital signs: Vital Signs 11/04/18 15:00 11/04/18 16:00 11/04/18 19:00 Temperature 98.2 F Pulse Rate 70 72 70 Respiratory Rate 18 Blood Pressure 177/76 H Pulse Oximetry 92 L 11/04/18 20:00 11/04/18 21:00 11/04/18 22:00 Temperature 98.1 F Pulse Rate 68 71 69 Respiratory Rate 20 Blood Pressure 205/85 H Pulse Oximetry 97 Intake & Output 11/04/18 11/05/18 11/05/18 18:59 06:59 18:59 Intake Total 960 / 960 Output Total 1000 / 1000 Balance -40 / -40 Intake: Oral 960 / 960 Output: Urine 1000 / 1000 Other: Date of Last Bowel Movement 11/03/18 11/03/18 <Gissel Snyder - 11/05/18 14:48> Vital Signs 11/03/18 11:00 11/03/18 12:00 11/03/18 15:00 Temperature 98.0 F 98.8 F Pulse Rate 73 66 83 Respiratory Rate 20 20 Blood Pressure 146/66 H 196/82 H Pulse Oximetry 92 L 93 L 11/03/18 16:10 11/03/18 18:21 11/03/18 19:00 Temperature Pulse Rate 72 Respiratory Rate Blood Pressure 158/65 H Pulse Oximetry 92 L 11/03/18 20:00 11/03/18 20:54 11/03/18 23:00 Temperature 97.9 F Pulse Rate 70 64 Respiratory Rate 18 Blood Pressure 189/78 H Pulse Oximetry 94 L 95 11/04/18 00:00 11/04/18 03:00 11/04/18 04:00 Temperature 98 F 98.1 F Pulse Rate 66 76 64 Respiratory Rate 18 18 Blood Pressure 170/74 H 158/71 H Pulse Oximetry 98 92 L 11/04/18 07:00 Temperature Pulse Rate 64 Respiratory Rate Blood Pressure Pulse Oximetry Intake & Output 11/03/18 11/04/18 11/04/18 18:59 06:59 18:59 Intake Total 720 / 720 240 / 240 Output Total 1200 / 1200 1000 / 1000 Balance -480 / -480 -760 / -760 Weight 135 kg Intake: Oral 720 / 720 240 / 240 Output: Urine 1200 / 1200 1000 / 1000 Other: Date of Last Bowel Movement 11/03/18 11/03/18 # Bowel Movements 2 <Carter Doty - 11/04/18 09:22> Narrative: General: Obese female in no acute distress Eyes: EOMI, anicteric scleral, no conjunctival injection ENT: Atraumatic, MMM Neck: Trachea midline Respiratory: Normal respiratory effort, lungs clear to auscultation bilaterally with good aeration Cardiovascular: Regular rate and rhythm with soft systolic murmur, unchanged since admission Abdomen: Bowel sounds present. Soft, non-tender. No masses noted. Psychiatric: Alert and oriented. Normal affect. <Dangelo ClaytonCarter J - 11/04/18 09:22> Assessment and Plan - Assessment (1) Leukocytosis Code(s): D72.829 - Elevated white blood cell count, unspecified Status: Acute (2) Congestive heart failure Code(s): I50.9 - Heart failure, unspecified Status: Acute (3) ESRD (end stage renal disease) Code(s): N18.6 - End stage renal disease Status: Acute (4) Diabetes Code(s): E11.9 - Type 2 diabetes mellitus without complications Status: Acute (5) Acute on chronic kidney failure Code(s): N17.9 - Acute kidney failure, unspecified; N18.9 - Chronic kidney disease, unspecified Status: Acute (6) Elevated troponin Code(s): R74.8 - Abnormal levels of other serum enzymes Status: Acute (7) Hypertensive emergency Code(s): I16.1 - Hypertensive emergency Status: Acute <LillianGissel Julia - 11/05/18 14:48> (1) Leukocytosis Code(s): D72.829 - Elevated white blood cell count, unspecified Status: Acute (2) Congestive heart failure Code(s): I50.9 - Heart failure, unspecified Status: Acute (3) ESRD (end stage renal disease) Code(s): N18.6 - End stage renal disease Status: Acute (4) Diabetes Code(s): E11.9 - Type 2 diabetes mellitus without complications Status: Acute (5) Acute on chronic kidney failure Code(s): N17.9 - Acute kidney failure, unspecified; N18.9 - Chronic kidney disease, unspecified Status: Acute (6) Elevated troponin Code(s): R74.8 - Abnormal levels of other serum enzymes Status: Acute (7) Hypertensive emergency Code(s): I16.1 - Hypertensive emergency Status: Acute <Carter Doty - 11/04/18 11:23> - Assessment and Plan She is a 58-year-old female with a past medical history significant for CHF and ESRD who presented with shortness of breath on minimal exertion. Renal: History of ESRD. -Improving, Cr 3.10 today -Dr. Mendes consulted, appreciated recommendations -Continue Bumex 2mg BID -May need HD with permcath if kidney function worsens -Continue fluid restriction Continue metolazone -Avoid nephrotoxins Cardiovascular: Symptoms most likely related to fluid overload from her ESRD. EKG showed a mild ST depression in V5 and V6. Troponin stable. -s/p 2 units of PRBC on 11/02/18 -Clonidine as needed for BP > 180/110 -Continue home HTN meds (amlodipine, carvedilol, clonidine, Lasix, hydralazine) -Continue home medication Lipitor Respiratory: She had O2 sats in the mid 80's on RA on arrival. It improved to mid 90's with 4.5 L via NC. This may be related to hypertensive emergency or fluid overload from her ESRD. Treatment as above. Continue home she is on Anoro-Ellipta for her COPD Endocrine: History of diabetes treated with 70/30 at home (112 units daily + SSI ) -Levemir 30 units twice daily ACHS & 3AM medium dose sliding scale insulin Continue home medication gabapentin for neuropathy 200 mg p.o. at bedtime Neurologic/psychiatric: Continue home medications Celexa 20 mg p.o. daily Continue home medication Benadryl 25 mg p.o. at bedtime for sleep Infectious Disease / Hematologic: She has a white blood cell count of 47,000. 89% neutrophils and 10% metamyelocytes. From chart review she has had some leukocytosis since November of last year, however it continues to rise and this is a 14k jump from a month and 4 days ago. While it is possible that this represents an infectious process superimposing an oncologic process, she has little clinical signs of serious infection. She has been afebrile with normal heart rate. She did have mild tachypnea, but this is better explained by her pulmonary edema. Serum protein electrophoresis per nephro pending Fluids: none Electrolytes: monitor and replete with caution Nutrition: Renal and diabetic diet GI prophylaxis: not indicated: Continue home medication Pepcid 10 mg p.o. twice daily VTE prophylaxis: Heparin 5000 units every 8 hours Disposition: Anticipate discharge home today. Dr. Bettencourt wants her to make an early appointment on Tuesday to see Dr. Mendes <Carter Doty - 11/04/18 11:25> - Attending Attestation The exam, history, and the medical decision-making described in the above note were completed with the assistance of the resident physician. I reviewed and agree with the findings presented. I attest that I had a [id number] encounter with the patient on the same day, and personally performed and documented my assessment and findings in the medical record. she is happy to be able to go home. she knows so many of her symptoms will be present until she starts dialysis in 3 weeks or so as an outpt <Gissel Snyder - 11/05/18 14:48>
--- NOTE | 2018-11-04 10:18 | P.PNNP ---
Subjective Interval history: Non oliguric. Slight negative fluid balance. On 4 liters of oxygen by NC. [place]. Physical Exam Vital signs: Vital Signs 11/03/18 11:00 11/03/18 12:00 11/03/18 15:00 Temperature 98.0 F 98.8 F Pulse Rate 73 66 83 Respiratory Rate 20 20 Blood Pressure 146/66 H 196/82 H Pulse Oximetry 92 L 93 L 11/03/18 16:10 11/03/18 18:21 11/03/18 19:00 Temperature Pulse Rate 72 Respiratory Rate Blood Pressure 158/65 H Pulse Oximetry 92 L 11/03/18 20:00 11/03/18 20:54 11/03/18 23:00 Temperature 97.9 F Pulse Rate 70 64 Respiratory Rate 18 Blood Pressure 189/78 H Pulse Oximetry 94 L 95 11/04/18 00:00 11/04/18 03:00 11/04/18 04:00 Temperature 98 F 98.1 F Pulse Rate 66 76 64 Respiratory Rate 18 18 Blood Pressure 170/74 H 158/71 H Pulse Oximetry 98 92 L 11/04/18 07:00 11/04/18 08:00 Temperature 97.7 F Pulse Rate 64 72 Respiratory Rate 18 Blood Pressure 202/84 H Pulse Oximetry 91 L Intake & Output 11/03/18 11/04/18 11/04/18 18:59 06:59 18:59 Intake Total 720 / 720 240 / 240 Output Total 1200 / 1200 1000 / 1000 Balance -480 / -480 -760 / -760 Weight 135 kg Intake: Oral 720 / 720 240 / 240 Output: Urine 1200 / 1200 1000 / 1000 Other: Date of Last Bowel Movement 11/03/18 11/03/18 11/03/18 # Bowel Movements 2 Narrative: General: Obese female in no acute distress Eyes: EOMI, anicteric scleral, no conjunctival injection ENT: Atraumatic, MMM Neck: Trachea midline Respiratory: Normal respiratory effort, lungs clear to auscultation bilaterally with good aeration Cardiovascular: Regular rate and rhythm with soft systolic murmur, unchanged since admission Abdomen: Bowel sounds present. Soft, non-tender. No masses noted. Psychiatric: Alert and oriented. Normal affect. Assessment and Plan - Assessment (1) Acute on chronic kidney failure Code(s): N17.9 - Acute kidney failure, unspecified; N18.9 - Chronic kidney disease, unspecified Status: Acute (2) Dyspnea on exertion Code(s): R06.09 - Other forms of dyspnea Status: Acute (3) Congestive heart failure Code(s): I50.9 - Heart failure, unspecified Status: Acute (4) Diabetes Code(s): E11.9 - Type 2 diabetes mellitus without complications Status: Acute - Plan Acute on chronic kidney disease Has advanced stage IV renal disease most likely from hypertension or diabetes Serology negative. Presented in fluid overload status. AVF in Left arm not mature as of yet. Creatinine today is 3.14. SPEP pending Avoid nephrotoxins. Continue Bumex 2 mg BID. Creatinine has remained stable with diuresis will continue May need hemodialysis with permacath if kidney function worsens or shows signs of uremia hoping to wait until AVF is mature. Metolazone added. Hypertension Elevated. On coreg, clonidine, amlodipine, and hydralazine. Amlodipine added. Anemia Procrit has been given. Most likely of chronic disease but also has leukocytosis. Has received blood transfusion. Hemoglobin is 8.8 today. Diabetes On insulin. Maintain blood sugar between 140 and 180 mg/dl while hospitalized.
[2018-11-04] MEDS: Umeclindinium 62.5 MCG/Vilanterol 25 MCG Inhaler INH SCH (15:11)
[2018-11-04] MEDS: Gabapentin 100 MG Capsule PO SCH (20:03)
[2018-11-05 00:19] VITALS: PULSE 69
[2018-11-05 00:24] VITALS: BP 205/85; RESP 20; TEMP 98.1; O2SAT 97
--- NOTE | 2018-11-06 12:32 | P.DCO ---
- Diagnosis (1) Congestive heart failure Status: Chronic (2) Dyspnea on exertion Status: Acute (3) ESRD (end stage renal disease) Status: Chronic (4) Pulmonary edema Status: Acute - Case Management Consult Case Management Consult-Home Health: Yes - Certification I have seen patient Corine Nguyen on 11/06/18. My clinical findings support the need for the requested home health care services because: She has significant desaturations down to the 70s on her walk test. She needs continuous home oxygen therapy at this time. Patient has SOB I certify that my clinical findings support that this patient is homebound because: Poor cardiac reserve
== END 2018-11-04 22:45 | disposition home or self-care (01) | DRG 682 ==
LOC: NEPI 11:28 → NEDA 13:35 → NEDH 20:14 → HIMC 11-02 06:15 → HCPC 11-02 23:03
PROVIDERS: ADMIT Family Medicine; ATTEND Family Medicine
CPT/HCPCS: 36430; 71010; 71045; 80048; 80053; 81001; 82272; 82550; 82552; 82948; 82962; 83520; 83735; 83880; 84100; 84165; 84484; 85014; 85018; 85025; 85610; 86850; 86900; 86901; 86923; 87040; 87641; 90774; 90784; 93005; 94618; 94620; 96374; 99291; C8952; J1644; J1815; J1940; J2270; J2405; J3475; J7050; J7512; P9016